=== PATIENT | male | born 1940 | race Caucasian/White ===

== ENCOUNTER 2017-02-03 16:39 | Inpatient (IN) | payer MEDICARE, BC ==
[2017-02-03] MEDS ORDERED: SODIUM CHLORIDE 0.9% 1,000 ML IV ONE (17:52)
--- NOTE | 2017-02-03 18:04 | ED ---
General Adult HPI - General Chief complaint: Altered Mental Status Stated complaint: Altered Mental Status Time Seen by Provider: 02/03/17 17:00 Source: EMS, RN notes reviewed Mode of arrival: EMS - History of Present Illness Initial comments: This is a 76-year-old male presents to the emergency department with the . Patient is brought in because he fell today and the was concerned that he might have hurt something. Patient himself denies any pain or any problems at this time. is noted over the last 5 days that the patient is having trouble finding words to express himself which is very unusual. states she was very concerned because he had a skin tear on his left forearm and she decided that needed to be evaluated in the emergency department. Patient denies any headache patient denies numbness weakness. Patient denies any neck pain. Patient denies chest pain. Patient denies back pain. Patient denies any abdominal pain patient denies nausea vomiting diarrhea. - Related Data Home Medications Medication Instructions Recorded Confirmed Carvedilol [Coreg] 6.25 mg PO BID 02/03/17 02/03/17 PARoxetine [Paxil] 20 mg PO DAILY 02/03/17 02/03/17 glipiZIDE XL [Glucotrol Xl] 5 mg PO DAILY 02/03/17 02/03/17 Previous Rx's Medication Instructions Recorded hydrALAZINE HCL [Apresoline] 25 mg PO BID #60 tab 06/10/16 Allergies Allergy/AdvReac Type Severity Reaction Status Date / Time donepezil HCl [From Aricept] Allergy Unknown Verified 02/03/17 17:17 sertraline HCl [From Zoloft] Allergy Unknown Verified 02/03/17 17:17 simvastatin [From Zocor] Allergy Unknown Verified 02/03/17 17:17 Review of Systems ROS Statement: Those systems with pertinent positive or pertinent negative responses have been documented in the HPI. ROS Other: All systems not noted in ROS Statement are negative. Past Medical History Past Medical History: Coronary Artery Disease (CAD), Heart Failure, CVA/TIA, Diabetes Mellitus, GI Bleed, Hypertension, Liver Disease, Myocardial Infarction ([place]), Renal Disease Additional Past Medical History / Comment(s): HX OF CARDIAC ARREST WITH CENTRAL LOBE BRAIN DAMAGE. , HX OF CIRRHOSIS, HX OF ESOPHAGEAL VARICIES, HX OF TORN LEFT CALF MUSCLE 2 YEARS AGO WITH WOUND (2012), USES WALKER ., INPATIENT AUG 2015 FOR LOW HGB AND RECEIVED BLOOD TRANSFUSIONS. Last Myocardial Infarction Date:: 10/1994 History of Any Multi-Drug Resistant Organisms: MRSA Date of last positivie culture/infection: 2012 MDRO Source:: leg, foot, lungs Past Surgical History: Coronary Bypass/CABG, Heart Catheterization With Stent, Hernia Repair, Orthopedic Surgery Additional Past Surgical History / Comment(s): quad bypass, bilateral carotids, SURG LEFT LEG WOUND., EGD AUG 2015 Past Anesthesia/Blood Transfusion Reactions: No Reported Reaction Additional Past Anesthesia/Blood Transfusion Reaction / Comment(s): HX OF BLOOD TRANSFUSIONS-NO PROBLEMS. Date of Last Stent Placement:: unk Past Psychological History: Anxiety, Depression Smoking Status: Former smoker Past Alcohol Use History: Rare Additional Past Alcohol Use History / Comment(s): HX OF HEAVY ALCOHOL USE. QUIT AUG 2013. SMOKED A PIPE. QUIT SMOKING 1989. Past Drug Use History: None Reported - Past Family History Mother Family Medical History: Myocardial Infarction ([place]) Additional Family Medical History / Comment(s): x7 mi's Father Family Medical History: Diabetes Mellitus Additional Family Medical History / Comment(s): amp lower extremity General Exam - General Exam Comments Initial Comments: GENERAL: Patient is well-developed and well-nourished. Patient is nontoxic and well- hydrated and is in no acute distress. ENT: Neck is soft and supple. No significant lymphadenopathy is noted. Oropharynx is clear. Dry mucous membranes. Neck has full range of motion without eliciting any pain. EYES: The sclera were anicteric and conjunctiva were pink and moist. Extraocular movements were intact and pupils were equal round and reactive to light. Eyelids were unremarkable. PULMONARY: Unlabored respirations. Good breath sounds bilaterally. No audible rales rhonchi or wheezing was noted. CARDIOVASCULAR: There is a regular rate and rhythm without any murmurs gallops or rubs. ABDOMEN: Soft and nontender with normal bowel sounds. No palpable organomegaly was noted. There is no palpable pulsatile mass. SKIN: Skin is clear with no lesions or rashes and otherwise unremarkable. NEUROLOGIC: Patient is alert and oriented 2. Cranial nerves II through XII are grossly intact. Motor and sensory are also intact. Patient does have some difficulty finding words to express himself. states this is new. MUSCULOSKELETAL: Normal extremities with adequate strength and full range of motion. No lower extremity swelling or edema. No calf tenderness. LYMPHATICS: No significant lymphadenopathy is noted PSYCHIATRIC: Normal psychiatric evaluation. Course Vital Signs 02/03/17 02/03/17 16:51 18:08 Temperature 98.1 F Pulse Rate 96 87 Respiratory 18 18 Rate Blood Pressure 217/115 196/94 O2 Sat by Pulse 92 L 94 L Oximetry Medical Decision Making - Medical Decision Making Patient's EKG shows a sinus rhythm at 91 bpm ID interval 222 QRS is under QT interval 394 QTC is 484. Patient's EKG shows no ST segment elevation or depression or T-wave abdomen is noted. I compared this EKG to an old EKG I see no acute changes. CT of the brain shows no acute abnormality. Patient was still having slurred speech on the time of admission. Patient's sugar was elevated significant patient Humalog. Patient's troponin was mildly elevated as was the creatinine which is his baseline. I spoke with Dr. Mcguire he agreed to admit the patient admitted the patient I consult the neuro I repeated the troponins I put the patient on an insulin sliding scale and I hydrated the patient. - Lab Data Result diagrams: 02/03/17 16:53 02/03/17 16:53 Lab Results 02/03/17 02/03/17 02/03/17 Range/Units 16:53 16:53 16:53 WBC 12.9 H (3.8-10.6) k/uL RBC 4.66 (4.30-5.90) m/uL Hgb 14.1 (13.0-17.5) gm/dL Hct 42.4 (39.0-53.0) % MCV 91.0 (80.0-100.0) fL MCH 30.2 (25.0-35.0) pg MCHC 33.2 (31.0-37.0) g/dL RDW 14.1 (11.5-15.5) % Plt Count 146 L (150-450) k/uL Neutrophils % 85 % Lymphocytes % 5 % Monocytes % 8 % Eosinophils % 0 % Basophils % 1 % Neutrophils # 10.9 H (1.3-7.7) k/uL Lymphocytes # 0.7 L (1.0-4.8) k/uL Monocytes # 1.1 H (0-1.0) k/uL Eosinophils # 0.0 (0-0.7) k/uL Basophils # 0.1 (0-0.2) k/uL PT (9.0-12.0) sec INR (<1.1) APTT (22.0-30.0) sec Sodium 140 (137-145) mmol/L Potassium 4.2 (3.5-5.1) mmol/L Chloride 105 (98-107) mmol/L Carbon Dioxide 18 L (22-30) mmol/L Anion Gap 17 mmol/L BUN 51 H (9-20) mg/dL Creatinine 2.30 H (0.66-1.25) mg/dL Est GFR (MDRD) Af Amer 34 (>60 ml/min/1.73 sqM) Est GFR (MDRD) Non-Af 28 (>60 ml/min/1.73 sqM) Glucose 437 H (74-99) mg/dL POC Glucose (mg/dL) (75-99) mg/dL POC Glu [address] Reporter ID Calcium 9.8 (8.4-10.2) mg/dL Total Bilirubin 2.1 H (0.2-1.3) mg/dL AST 56 (17-59) U/L ALT 30 (21-72) U/L Alkaline Phosphatase 145 H (38-126) U/L Total Creatine Kinase 1525 H (55-170) U/L CK-MB (CK-2) 6.0 H* (0.0-2.4) ng/mL CK-MB (CK-2) Rel Index 0.4 Troponin I 0.312 H* (0.000-0.034) ng/mL Total Protein 7.6 (6.3-8.2) g/dL Albumin 4.2 (3.5-5.0) g/dL Urine Color Urine Appearance (Clear) Urine pH (5.0-8.0) Ur Specific [place] (1.001-1.035) Urine Protein (Negative) Urine Glucose (UA) (Negative) Urine Ketones (Negative) Urine Blood (Negative) Urine Nitrite (Negative) Urine Bilirubin (Negative) Urine Urobilinogen (<2.0) mg/dL Ur Leukocyte Esterase (Negative) Urine RBC (0-5) /hpf Urine WBC (0-5) /hpf Urine Opiates Screen (NotDetected) Ur Oxycodone Screen (NotDetected) Urine Methadone Screen (NotDetected) Ur Propoxyphene Screen (NotDetected) Ur Barbiturates Screen (NotDetected) U Tricyclic Antidepress (NotDetected) Ur Phencyclidine Scrn (NotDetected) Ur Amphetamines Screen (NotDetected) U Methamphetamines Scrn (NotDetected) U Benzodiazepines Scrn (NotDetected) Urine Cocaine Screen (NotDetected) U Marijuana (THC) Screen (NotDetected) Acetone, Qual (Negative) 02/03/17 02/03/17 02/03/17 Range/Units 16:53 16:53 18:30 WBC (3.8-10.6) k/uL RBC (4.30-5.90) m/uL Hgb (13.0-17.5) gm/dL Hct (39.0-53.0) % MCV (80.0-100.0) fL MCH (25.0-35.0) pg MCHC (31.0-37.0) g/dL RDW (11.5-15.5) % Plt Count (150-450) k/uL Neutrophils % % Lymphocytes % % Monocytes % % Eosinophils % % Basophils % % Neutrophils # (1.3-7.7) k/uL Lymphocytes # (1.0-4.8) k/uL Monocytes # (0-1.0) k/uL Eosinophils # (0-0.7) k/uL Basophils # (0-0.2) k/uL PT 11.7 (9.0-12.0) sec INR 1.2 (<1.1) APTT 26.4 (22.0-30.0) sec Sodium (137-145) mmol/L Potassium (3.5-5.1) mmol/L Chloride (98-107) mmol/L Carbon Dioxide (22-30) mmol/L Anion Gap mmol/L BUN (9-20) mg/dL Creatinine (0.66-1.25) mg/dL Est GFR (MDRD) Af Amer (>60 ml/min/1.73 sqM) Est GFR (MDRD) Non-Af (>60 ml/min/1.73 sqM) Glucose (74-99) mg/dL POC Glucose (mg/dL) (75-99) mg/dL POC Glu [address] Reporter ID Calcium (8.4-10.2) mg/dL Total Bilirubin (0.2-1.3) mg/dL AST (17-59) U/L ALT (21-72) U/L Alkaline Phosphatase (38-126) U/L Total Creatine Kinase (55-170) U/L CK-MB (CK-2) (0.0-2.4) ng/mL CK-MB (CK-2) Rel Index Troponin I (0.000-0.034) ng/mL Total Protein (6.3-8.2) g/dL Albumin (3.5-5.0) g/dL Urine Color Yellow Urine Appearance Clear (Clear) Urine pH 5.5 (5.0-8.0) Ur Specific [place] 1.018 (1.001-1.035) Urine Protein 1+ H (Negative) Urine Glucose (UA) 4+ H (Negative) Urine Ketones 1+ H (Negative) Urine Blood Large H (Negative) Urine Nitrite Negative (Negative) Urine Bilirubin Negative (Negative) Urine Urobilinogen <2.0 (<2.0) mg/dL Ur Leukocyte Esterase Negative (Negative) Urine RBC 1 (0-5) /hpf Urine WBC <1 (0-5) /hpf Urine Opiates Screen Not Detected (NotDetected) Ur Oxycodone Screen Not Detected (NotDetected) Urine Methadone Screen Not Detected (NotDetected) Ur Propoxyphene Screen Not Detected (NotDetected) Ur Barbiturates Screen Not Detected (NotDetected) U Tricyclic Antidepress Not Detected (NotDetected) Ur Phencyclidine Scrn Not Detected (NotDetected) Ur Amphetamines Screen Not Detected (NotDetected) U Methamphetamines Scrn Not Detected (NotDetected) U Benzodiazepines Scrn Not Detected (NotDetected) Urine Cocaine Screen Not Detected (NotDetected) U Marijuana (THC) Screen Not Detected (NotDetected) Acetone, Qual Negative (Negative) 02/03/17 02/03/17 Range/Units 18:54 20:47 WBC (3.8-10.6) k/uL RBC (4.30-5.90) m/uL Hgb (13.0-17.5) gm/dL Hct (39.0-53.0) % MCV (80.0-100.0) fL MCH (25.0-35.0) pg MCHC (31.0-37.0) g/dL RDW (11.5-15.5) % Plt Count (150-450) k/uL Neutrophils % % Lymphocytes % % Monocytes % % Eosinophils % % Basophils % % Neutrophils # (1.3-7.7) k/uL Lymphocytes # (1.0-4.8) k/uL Monocytes # (0-1.0) k/uL Eosinophils # (0-0.7) k/uL Basophils # (0-0.2) k/uL PT (9.0-12.0) sec INR (<1.1) APTT (22.0-30.0) sec Sodium (137-145) mmol/L Potassium (3.5-5.1) mmol/L Chloride (98-107) mmol/L Carbon Dioxide (22-30) mmol/L Anion Gap mmol/L BUN (9-20) mg/dL Creatinine (0.66-1.25) mg/dL Est GFR (MDRD) Af Amer (>60 ml/min/1.73 sqM) Est GFR (MDRD) Non-Af (>60 ml/min/1.73 sqM) Glucose (74-99) mg/dL POC Glucose (mg/dL) 409 H 353 H (75-99) mg/dL POC Glu [address] Court Reporter ID Scooby Lidia Quin Lawson Calcium (8.4-10.2) mg/dL Total Bilirubin (0.2-1.3) mg/dL AST (17-59) U/L ALT (21-72) U/L Alkaline Phosphatase (38-126) U/L Total Creatine Kinase (55-170) U/L CK-MB (CK-2) (0.0-2.4) ng/mL CK-MB (CK-2) Rel Index Troponin I (0.000-0.034) ng/mL Total Protein (6.3-8.2) g/dL Albumin (3.5-5.0) g/dL Urine Color Urine Appearance (Clear) Urine pH (5.0-8.0) Ur Specific [place] (1.001-1.035) Urine Protein (Negative) Urine Glucose (UA) (Negative) Urine Ketones (Negative) Urine Blood (Negative) Urine Nitrite (Negative) Urine Bilirubin (Negative) Urine Urobilinogen (<2.0) mg/dL Ur Leukocyte Esterase (Negative) Urine RBC (0-5) /hpf Urine WBC (0-5) /hpf Urine Opiates Screen (NotDetected) Ur Oxycodone Screen (NotDetected) Urine Methadone Screen (NotDetected) Ur Propoxyphene Screen (NotDetected) Ur Barbiturates Screen (NotDetected) U Tricyclic Antidepress (NotDetected) Ur Phencyclidine Scrn (NotDetected) Ur Amphetamines Screen (NotDetected) U Methamphetamines Scrn (NotDetected) U Benzodiazepines Scrn (NotDetected) Urine Cocaine Screen (NotDetected) U Marijuana (THC) Screen (NotDetected) Acetone, Qual (Negative) Disposition Clinical Impression: CVA (cerebral vascular accident), Hyperglycemia, Dehydration, Elevated troponin , Rhabdomyolysis, Chronic renal failure Disposition: ADMITTED IP TO THIS HOSP Referrals: Rosalva Mcguire MD [Primary Care Provider] - 1-2 days Time of Disposition: 21:18
[2017-02-03 18:10] LABS: Basophils # (A) 0.1 k/uL (0-0.2); Basophils % (A) 1 %; CH 29.8; CHCM 32.9; Eosinophils % (A) 0 %; HCT 42.4 % (39.0-53.0); HDW 2.74; HGB 14.1 gm/dL (13.0-17.5); Luc # (Auto) 0.18; Luc % (Auto) 1; Lymphocytes # (A) 0.7 k/uL (1.0-4.8); Lymphocytes % (A) 5 %; MCH 30.2 pg (25.0-35.0); MCHC 33.2 g/dL (31.0-37.0); Mean Platelet Volume 7.8; Monocytes # (A) 1.1 k/uL (0-1.0); Monocytes % (A) 8 %; Neutrophils # (A) 10.9 k/uL (1.3-7.7); Neutrophils % (A) 85 %; RBC 4.66 m/uL (4.30-5.90); RDW 14.1 % (11.5-15.5); WBC 12.9 k/uL (3.8-10.6); WBC (Perox) 12.49
[2017-02-03 18:20] LABS: Partial Thromboplastin Time 26.4 sec (22.0-30.0)
[2017-02-03 18:22] LABS: INR 1.2 (<1.1); Prothrombin Time 11.7 sec (9.0-12.0)
[2017-02-03 18:23] LABS: Calcium 9.8 mg/dL (8.4-10.2); Potassium 4.2 mmol/L (3.5-5.1); Total Bilirubin 2.1 mg/dL (0.2-1.3); Total Protein 7.6 g/dL (6.3-8.2)
--- NOTE | 2017-02-03 18:33 | CT ---
EXAMINATION TYPE: CT brain wo con DATE OF EXAM: 02/03/2017 6:25 PM HISTORY: multiple falls per patient family with headache. CT DLP: 1213 mGycm. Automated Exposure Control for Dose Reduction was Utilized. TECHNIQUE: CT scan of the head is performed without contrast. COMPARISON: None. FINDINGS: There is no acute intracranial hemorrhage or midline shift identified. There is diffuse v entricular and sulcal prominence consistent with diffuse age-related cerebral atrophy. There is low- attenuation in the periventricular white matter consistent with chronic small vessel ischemic change. Old lacunar infarct left head of caudate nucleus level near axial image 20 and 21 is noted. There is near complete opacification visualized portion of left maxillary sinus otherwise paranasal sinuses a re clear. Both lenses are thinned. The calvarium is intact. IMPRESSION: No acute intracranial hemorrhage or midline shift. There is moderate to severe diffuse age-related cerebral atrophy and moderate chronic small vessel ischemic change noted. Left maxillary sinus disease is noted.
--- NOTE | 2017-02-03 18:39 | XR ---
EXAMINATION TYPE: XR chest 2V DATE OF EXAM: 02/03/2017 6:28 PM COMPARISON: Chest x-ray September 19, 2015. HISTORY: History of COPD presents with weakness and multiple falls. TECHNIQUE: Frontal and lateral views of the chest are obtained. FINDINGS: Post-CABG changes with mediastinal clips and sternal wires is present. There is chronic lef t basilar scarring. There is no new suspicious focal air space opacity, pleural effusion, or pneumoth orax seen. The cardiac silhouette size is within normal limits. There is mild height loss or baltazar taco type fracture deformity at roughly T11 level. IMPRESSION: Post CABG changes with left basilar scarring, no acute pulmonary process is evident.
[2017-02-03 18:47] LABS: Appearance,Urine Clear (Clear); Bilirubin,Urine Negative (Negative); Glucose,Urine (UA) 4+ (Negative); Ketones,Urine 1+ (Negative); Leukocyte Esterase,Urine Negative (Negative); Nitrite,Urine Negative (Negative); PH, Urine 5.5 (5.0-8.0); Particle Count 3413; Protein,Urine 1+ (Negative); RBC,Urine 1 /hpf (0-5); Specific Gravity,Urine 1.018 (1.001-1.035); UA Billing (MACRO vs. MICRO) MICRO; Urobilinogen,Urine <2.0 mg/dL (<2.0); WBC,Urine <1 /hpf (0-5)
[2017-02-03 18:51] LABS: Troponin I 0.312 ng/mL (0.000-0.034)
[2017-02-03 18:57] LABS: Glucose,Whole Blood 409 mg/dL (75-99)
[2017-02-03] MEDS ORDERED: INSULIN REGULAR 100 UNIT/ML VIAL IV ONE (19:34)
[2017-02-03] MEDS: INSULIN REGULAR 100 UNIT in SODIUM CHLORIDE 0.9% 100 ML IV ONE ×2 (20:46→21:24)
[2017-02-03 20:49] LABS: Glucose,Whole Blood 353 mg/dL (75-99)
[2017-02-03] MEDS ORDERED: INSULIN LISPRO (humaLOG) 300 UNIT/3 ML VIAL SQ ONE (20:57)
[2017-02-03] MEDS: SODIUM CHLORIDE 0.9% 1,000 ML IV SCH (21:46)
[2017-02-03 22:23] LABS: Glucose,Whole Blood 341 mg/dL (75-99)
[2017-02-03] MEDS: INSULIN GLARGINE 100 UNIT/ML 10 ML VIAL SQ SCH (23:34)
[2017-02-03] MEDS: hydrALAZINE HCL 25 MG TAB PO SCH (23:59)
[2017-02-03] MEDS: CARVEDILOL 6.25 MG TAB PO SCH (23:59)
[2017-02-04 00:47] LABS: Hemoglobin A1C 8.7 % (4.2-6.1)
[2017-02-04 01:20] LABS: Glucose,Whole Blood 209 mg/dL (75-99)
[2017-02-04 02:05] LABS: Calcium 9.3 mg/dL (8.4-10.2); Phosphorous 2.6 mg/dL (2.5-4.5); Potassium 3.9 mmol/L (3.5-5.1); Total Bilirubin 1.9 mg/dL (0.2-1.3); Total Protein 6.5 g/dL (6.3-8.2)
[2017-02-04 02:06] LABS: INR 1.2 (<1.1); Partial Thromboplastin Time 28.2 sec (22.0-30.0); Prothrombin Time 11.6 sec (9.0-12.0)
[2017-02-04 02:12] LABS: Basophils # (A) 0.1 k/uL (0-0.2); Basophils % (A) 1 %; CH 30.2; CHCM 33.2; Eosinophils % (A) 0 %; HCT 39.8 % (39.0-53.0); HDW 2.71; HGB 12.7 gm/dL (13.0-17.5); Luc # (Auto) 0.21; Luc % (Auto) 2; Lymphocytes # (A) 0.9 k/uL (1.0-4.8); Lymphocytes % (A) 10 %; MCH 29.1 pg (25.0-35.0); MCHC 31.8 g/dL (31.0-37.0); MCV 91.4 fL (80.0-100.0); Monocytes # (A) 0.8 k/uL (0-1.0); Monocytes % (A) 9 %; Neutrophils # (A) 7.1 k/uL (1.3-7.7); Neutrophils % (A) 77 %; RBC 4.36 m/uL (4.30-5.90); RDW 14.4 % (11.5-15.5); WBC 9.1 k/uL (3.8-10.6); WBC (Perox) 9.09
[2017-02-04 02:20] LABS: Magnesium 1.9 mg/dL (1.6-2.3)
--- NOTE | 2017-02-04 02:27 | CT ---
EXAM: CT Head Without Intravenous Contrast. CLINICAL HISTORY: Reason: right sided weakness, code stroke TECHNIQUE: Axial computed tomography images of the head/brain without intravenous contrast. CTDI is 57.4 mGy and DLP is 1116 mGy-cm This CT exam was performed using one or more of the following dose reduction techniques: automated exposure control, adjustment of the mA and/or kV according to patient size, and/or use of iterative reconstruction technique. COMPARISON: CT 02/03/17. FINDINGS: Brain: Involutional changes. Periventricular low attenuation and chronic ischemic changes similar to prior study. No hemorrhage. No acute cortical infarct. No mass effect or midline shift. Ventricles: Stable. Bones/joints: No acute fracture. Soft tissues: Unremarkable. Sinuses: Left maxillary sinus disease. Mastoid air cells: Unremarkable as visualized. IMPRESSION: No intracranial hemorrhage or acute cortical infarct. MRI is more sensitive for acute ischemia if indicated.
[2017-02-04 02:37] LABS: Creatine Kinase MB 7.2 ng/mL (0.0-2.4)
[2017-02-04 02:38] LABS: Troponin I 0.298 ng/mL (0.000-0.034)
[2017-02-04] MEDS ORDERED: ASPIRIN 300 MG SUPP RECTAL STA (02:48)
--- NOTE | 2017-02-04 03:12 | CT ---
EXAM: CT Angiography Head With Intravenous Contrast. CLINICAL HISTORY: Reason: right sided weakness, code stroke TECHNIQUE: Axial computed tomographic angiography images of the head with intravenous contrast using CT angiography protocol. CTDI is 32 mGy and DLP is 248 mGy-cm This CT exam was performed using one or more of the following dose reduction techniques: automated exposure control, adjustment of the mA and/or kV according to patient size, and/or use of iterative reconstruction technique. MIP reconstructed images were created and reviewed. COMPARISON: No relevant prior studies available. FINDINGS: Right internal carotid artery: Atherosclerotic disease. No significant stenosis. No dissection or occlusion. Right anterior cerebral artery: No occlusion. No aneurysm. Right middle cerebral artery: Overall diminished left hemispheric vascularity compared to the right. No aneurysm. Right posterior cerebral artery: No occlusion. No aneurysm. Right vertebral artery: No dissection or occlusion. Left internal carotid artery: Atherosclerotic disease. No significant stenosis. No dissection or occlusion. Left anterior cerebral artery: No occlusion. No aneurysm. Left middle cerebral artery: No occlusion. No aneurysm. Left posterior cerebral artery: No occlusion. No aneurysm. Left vertebral artery: No dissection or occlusion. Basilar artery: No occlusion. No aneurysm. IMPRESSION: 1. Overall diminished left MCA territory vascularity compared to the right. Consider MRI to evaluate for early ischemic changes. 2. No large vessel occlusion or aneurysm. EXAM: CT Angiography Neck With Intravenous Contrast. CLINICAL HISTORY: Reason: right sided weakness, code stroke TECHNIQUE: Axial computed tomographic angiography images of the neck with intravenous contrast using CT angiography protocol. CTDI is 114 mGy and DLP is 264 mGy-cm This CT exam was performed using one or more of the following dose reduction techniques: automated exposure control, adjustment of the mA and/or kV according to patient size, and/or use of iterative reconstruction technique. MIP reconstructed images were created and reviewed. COMPARISON: No relevant prior studies available. FINDINGS: VASCULATURE: Right common carotid artery: Atherosclerotic disease. No significant stenosis. No dissection or occlusion. Right internal carotid artery: Atherosclerotic disease. No significant stenosis. No dissection or occlusion. Right external carotid artery: Unremarkable. No occlusion. Right vertebral artery: Unremarkable. No dissection or occlusion. Left common carotid artery: Atherosclerotic disease. No significant stenosis. No dissection or occlusion. Left internal carotid artery: Atherosclerotic disease. No significant stenosis. No dissection or occlusion. Left external carotid artery: Unremarkable. No occlusion. Left vertebral artery: Unremarkable. No dissection or occlusion. NECK: Bones/joints: No acute fracture. Soft tissues: Unremarkable as visualized. CAROTID STENOSIS REFERENCE USING NASCET CRITERIA: % ICA stenosis = (1 - narrowest ICA diameter/diameter of distal cervical ICA) x 100. Mild - <50% stenosis. Moderate - 50-69% stenosis. Severe - 70-94% stenosis. Near occlusion - 95-99% stenosis. Occluded - 100% stenosis. IMPRESSION: No flow-limiting stenosis, occlusion, or dissection. [employer] 02/04/17 03:46 Call Doctor Regarding Above results, called Dr. Lynch on 02/04 03:46 (-04:00)
[2017-02-04 05:30] LABS: CHCM 33.1; HCT 36.3 % (39.0-53.0); HGB 11.9 gm/dL (13.0-17.5); MCH 29.8 pg (25.0-35.0); MCHC 32.8 g/dL (31.0-37.0); Mean Platelet Volume 8.5; RBC 3.99 m/uL (4.30-5.90); RDW 14.3 % (11.5-15.5); WBC 9.3 k/uL (3.8-10.6)
[2017-02-04 05:45] LABS: Magnesium 1.9 mg/dL (1.6-2.3); Phosphorous 2.6 mg/dL (2.5-4.5)
[2017-02-04 07:23] LABS: Glucose,Whole Blood 215 mg/dL (75-99)
[2017-02-04 09:24] LABS: Glucose,Whole Blood 214 mg/dL (75-99)
[2017-02-04] MEDS: INSULIN LISPRO (humaLOG) 300 UNIT/3 ML VIAL SQ SCH ×4 (09:37→20:45)
[2017-02-04] MEDS: HEPARIN SODIUM,PORCINE 5,000 UNIT/ML 1 ML VIAL SQ SCH ×2 (09:37→20:45)
[2017-02-04] MEDS: SODIUM CHLORIDE 0.9% 1,000 ML IV SCH ×2 (09:37→17:48)
--- NOTE | 2017-02-04 09:46 | US ---
EXAMINATION TYPE: US carotid duplex BILAT DATE OF EXAM: 02/04/2017 8:39 AM COMPARISON: NONE CLINICAL HISTORY: Stenosis. CVA EXAM MEASUREMENTS: RIGHT: Peak Systolic Velocity (PSV) cm/sec ----- Right CCA: 77.9 ----- Right ICA: 80.1 ----- Right ECA: 81.2 ICA/CCA ratio: 1.0 RIGHT: End Diastole cm/sec ----- Right CCA: 18.6 ----- Right ICA: 26.3 ----- Right ECA: 5.4 LEFT: Peak Systolic Velocity (PSV) cm/sec ----- Left CCA: 116.1 ----- Left ICA: 109.7 ----- Left ECA: 98.4 ICA/CCA ratio: 0.9 LEFT: End Diastole cm/sec ----- Left CCA: 17.6 ----- Left ICA: 22.5 ----- Left ECA: 11.1 VERTEBRALS (direction of flow): Right Vertebral: Antegrade Left Vertebral: Antegrade IMPRESSION: Moderate plaque noted bilaterally. No evidence of significant stenosis. Criteria for Assigning % of Stenosis / Diameter reduction (Estimation based on the indirect measurements of the internal carotid artery velocities (ICA PSV). 1. Normal (no stenosis)=ICA PSV < 125 cm/s: ratio < 2.0: ICA EDV<40 cm/s. 2. Less than 50% stenosis=ICA PSV < 125 cm/s: ratio < 2.0: ICA EDV<40 cm/s. 3. 50 to 69% stenosis=ICA PSV of 125 to 230 cm/s: ration 2.0 ? 4.0: ICA EDV 40-100 cm/s. 4. Greater than 70% stenosis to near occlusion= ICA PSV > 230 cm/s: ratio > 4.0: ICA EDV > 100 cm/s. 5. Near occlusion= ICA PSV velocities may be low or undetectable: variable ratio and ICA EDV. 6. Total occlusion=unable to detect flow.
[2017-02-04] MEDS ORDERED: Potassium Replacement Protocol 1 EACH MISC MISCELLANE PRN (09:47)
[2017-02-04] MEDS ORDERED: Magnesium Replacement Protocol 1 EACH MISC MISCELLANE PRN (09:47)
[2017-02-04] MEDS: PARoxetine 20 MG TAB PO SCH (09:51)
[2017-02-04] MEDS: CARVEDILOL 6.25 MG TAB PO SCH ×2 (09:51→17:47)
[2017-02-04] MEDS: hydrALAZINE HCL 25 MG TAB PO SCH ×3 (09:51→21:10)
[2017-02-04] MEDS ORDERED: LORazepam 2 MG/ML SYRINGE IV PRN (11:03)
[2017-02-04] MEDS: PANTOPRAZOLE 40 MG/10 ML VIAL IVP SCH (11:18)
[2017-02-04 12:08] LABS: Glucose,Whole Blood 162 mg/dL (75-99)
--- NOTE | 2017-02-04 12:52 | P.HPIM ---
History of Present Illness H&P Date: 02/04/17 Chief Complaint: After his mental status This is a 76-year-old gentleman with very complex past medical history noted below who presented to the emergency room with his with altered mental status and after she found him on the floor. For the past week or so, patient' s mentation is being getting progressively worse. He was noted to be less active and at times very sleepy. When his called my office 2 days ago I advised her to take him to the emergency room for further evaluation. Apparently patient stayed at the assisted living where he resides and yesterday she went to see him and found him on the ground. He was unclear for how long the patient was on the ground. He was awake and alert. He appeared very confused. He is awake today that was not oriented to the place or the to the date. He is known to have underlying cognitive impairment that usually is coherent. He was evaluated in the emergency room and computed tomography scan of the brain showed no acut intracranial findings. Lab work showed evidence of rhabdomyolysis patient was started on IV fluid and was admitted to the hospital for further evaluation. Troponin were noted to be slightly elevated but patient himself denies any chest pain. 12-lead EKG showed no acute ischemic changes. Patient is known to have chronic kidney disease with baseline creatinine around 2. Review of Systems Review of system: 14 points review of systems were obtained and were negative except to what were mentioned in the HPI. Past Medical History Past Medical History: Coronary Artery Disease (CAD), Heart Failure, CVA/TIA, Diabetes Mellitus, GI Bleed, Hypertension, Liver Disease, Myocardial Infarction ([place]), Renal Disease Additional Past Medical History / Comment(s): HX OF CARDIAC ARREST WITH CENTRAL LOBE BRAIN DAMAGE. , HX OF CIRRHOSIS, HX OF ESOPHAGEAL VARICIES, HX OF TORN LEFT CALF MUSCLE 2 YEARS AGO WITH WOUND (2012), USES WALKER ., INPATIENT AUG 2015 FOR LOW HGB AND RECEIVED BLOOD TRANSFUSIONS. Last Myocardial Infarction Date:: 10/1994 History of Any Multi-Drug Resistant Organisms: MRSA Date of last positivie culture/infection: 2012 MDRO Source:: leg, foot, lungs Past Surgical History: Coronary Bypass/CABG, Heart Catheterization With Stent, Hernia Repair, Orthopedic Surgery Additional Past Surgical History / Comment(s): quad bypass, bilateral carotids, SURG LEFT LEG WOUND., EGD AUG 2015 Past Anesthesia/Blood Transfusion Reactions: No Reported Reaction Additional Past Anesthesia/Blood Transfusion Reaction / Comment(s): HX OF BLOOD TRANSFUSIONS-NO PROBLEMS. Date of Last Stent Placement:: unk Past Psychological History: Anxiety, Depression Smoking Status: Former smoker Past Alcohol Use History: Rare Additional Past Alcohol Use History / Comment(s): HX OF HEAVY ALCOHOL USE. QUIT AUG 2013. SMOKED A PIPE. QUIT SMOKING 1989. Past Drug Use History: None Reported - Past Family History Mother Family Medical History: Myocardial Infarction ([place]) Additional Family Medical History / Comment(s): x7 mi's Father Family Medical History: Diabetes Mellitus Additional Family Medical History / Comment(s): amp lower extremity Medications and Allergies Home Medications Medication Instructions Recorded Confirmed Type Carvedilol [Coreg] 6.25 mg PO BID 02/03/17 02/03/17 History PARoxetine [Paxil] 20 mg PO DAILY 02/03/17 02/03/17 History glipiZIDE XL [Glucotrol Xl] 5 mg PO DAILY 02/03/17 02/03/17 History Allergies Allergy/AdvReac Type Severity Reaction Status Date / Time donepezil HCl [From Aricept] Allergy Unknown Verified 02/03/17 17:17 sertraline HCl [From Zoloft] Allergy Unknown Verified 02/03/17 17:17 simvastatin [From Zocor] Allergy Unknown Verified 02/03/17 17:17 Physical Exam Vitals: Vital Signs Temp Pulse Pulse Resp BP Pulse Ox 02/04/17 12:00 98.3 F 58 L 15 173/60 99 02/04/17 11:30 59 L 14 154/81 98 02/04/17 11:00 61 14 173/86 95 02/04/17 10:30 58 L 14 182/92 78 L 02/04/17 10:00 73 24 161/78 96 02/04/17 09:30 59 L 12 158/79 97 02/04/17 09:00 98.2 F 58 L 15 141/73 98 02/04/17 08:30 59 L 9 L 177/85 96 02/04/17 08:00 58 L 13 166/81 92 L 02/04/17 07:45 63 17 166/81 97 02/04/17 07:30 61 14 105/60 98 02/04/17 07:15 61 13 105/60 96 02/04/17 07:00 63 23 148/76 97 02/04/17 06:45 59 L 16 148/76 97 02/04/17 06:30 70 26 H 151/76 89 L 02/04/17 06:15 57 L 15 151/76 95 02/04/17 06:00 60 15 147/71 95 02/04/17 05:45 60 14 147/71 94 L 02/04/17 05:30 60 21 146/73 94 L 02/04/17 05:15 62 14 146/73 94 L 02/04/17 05:00 97.2 F L 65 15 141/72 93 L 02/04/17 04:45 63 25 H 141/72 85 L 02/04/17 04:30 66 15 141/72 94 L 02/04/17 04:15 67 15 141/72 94 L 02/04/17 04:00 66 15 141/72 95 02/04/17 03:45 64 15 141/72 96 02/04/17 03:30 64 25 H 141/72 97 02/04/17 03:15 67 19 168/89 02/04/17 03:00 71 20 168/89 02/04/17 02:45 68 18 140/75 83 L 02/04/17 02:30 70 11 L 163/81 83 L 02/04/17 02:00 153/95 02/04/17 01:39 97.1 F L 02/04/17 01:30 70 153/95 92 L 02/04/17 01:00 66 137/73 90 L 02/04/17 00:30 69 140/73 97 02/04/17 00:00 70 67 22 149/93 80 L 02/03/17 23:30 69 136/71 82 L 02/03/17 23:00 74 163/98 97 02/03/17 22:30 75 198/94 96 02/03/17 22:18 203/107 Intake and Output 02/03/17 02/04/17 02/04/17 22:59 06:59 14:59 Intake Total 100 Output Total 200 300 Balance -200 -200 Intake: Intake, IV Titration 100 Amount Sodium Chloride 0.9% 1, 100 000 ml @ 100 mls/hr IV . Q10H [facility] Rx#:[id number] Output: Urine 200 300 Other: Voiding Method Bedpan Bedpan Urinal Urinal Weight 78.4 kg 79 kg 79 kg Patient Weight 02/05/17 06:59 Weight 79 kg General: The patient is awake and alert, in no distress, Eye: extra-ocular movements are intact; there is normal conjunctiva bilaterally. . Neck: The neck is supple, there is no tenderness or JVD. Cardiovascular: Normal S1-S2, no S3-S4, no murmurs. Respiratory: Lungs clear to auscultation bilaterally with no wheezes rhonchi or rales. Gastrointestinal: Abdomen is soft, nontender, nondistended, Musculoskeletal: Normal ROM, no tenderness, There is no pedal edema. Neurological: There are no obvious motor or sensory deficits. Skin: Skin is warm and dry Results CBC & Chem 7: 02/04/17 04:50 02/04/17 04:50 Labs: Abnormal Lab Results - Last 24 Hours (Table) 02/03/17 02/03/17 02/03/17 Range/Units 21:50 21:50 22:21 RBC (4.30-5.90) m/uL Hgb (13.0-17.5) gm/dL Hct (39.0-53.0) % Plt Count (150-450) k/uL Lymphocytes # (1.0-4.8) k/uL Chloride (98-107) mmol/L BUN (9-20) mg/dL Creatinine (0.66-1.25) mg/dL Glucose (74-99) mg/dL POC Glucose (mg/dL) 341 H (75-99) mg/dL Plasma Lactic Acid Rachid (0.7-2.0) mmol/L Total Bilirubin (0.2-1.3) mg/dL AST (17-59) U/L Creatine Kinase 1563 H (55-170) U/L CK-MB (CK-2) (0.0-2.4) ng/mL Troponin I 0.305 H* (0.000-0.034) ng/mL Albumin (3.5-5.0) g/dL HDL Cholesterol (40-60) mg/dL 02/04/17 02/04/17 02/04/17 Range/Units 01:18 01:40 01:40 RBC (4.30-5.90) m/uL Hgb 12.7 L (13.0-17.5) gm/dL Hct (39.0-53.0) % Plt Count 109 L (150-450) k/uL Lymphocytes # 0.9 L (1.0-4.8) k/uL Chloride 108 H (98-107) mmol/L BUN 46 H (9-20) mg/dL Creatinine 2.00 H (0.66-1.25) mg/dL Glucose 176 H (74-99) mg/dL POC Glucose (mg/dL) 209 H (75-99) mg/dL Plasma Lactic Acid Rachid (0.7-2.0) mmol/L Total Bilirubin 1.9 H (0.2-1.3) mg/dL AST 64 H (17-59) U/L Creatine Kinase (55-170) U/L CK-MB (CK-2) (0.0-2.4) ng/mL Troponin I (0.000-0.034) ng/mL Albumin 3.4 L (3.5-5.0) g/dL HDL Cholesterol (40-60) mg/dL 02/04/17 02/04/17 02/04/17 Range/Units 01:40 01:40 01:40 RBC (4.30-5.90) m/uL Hgb (13.0-17.5) gm/dL Hct (39.0-53.0) % Plt Count (150-450) k/uL Lymphocytes # (1.0-4.8) k/uL Chloride (98-107) mmol/L BUN (9-20) mg/dL Creatinine (0.66-1.25) mg/dL Glucose (74-99) mg/dL POC Glucose (mg/dL) (75-99) mg/dL Plasma Lactic Acid Rachid 2.2 H* (0.7-2.0) mmol/L Total Bilirubin (0.2-1.3) mg/dL AST (17-59) U/L Creatine Kinase (55-170) U/L CK-MB (CK-2) 7.2 H* (0.0-2.4) ng/mL Troponin I 0.298 H* (0.000-0.034) ng/mL Albumin (3.5-5.0) g/dL HDL Cholesterol 39 L (40-60) mg/dL 02/04/17 02/04/17 02/04/17 Range/Units 04:50 04:50 07:21 RBC 3.99 L (4.30-5.90) m/uL Hgb 11.9 L (13.0-17.5) gm/dL Hct 36.3 L (39.0-53.0) % Plt Count 114 L (150-450) k/uL Lymphocytes # (1.0-4.8) k/uL Chloride 108 H (98-107) mmol/L BUN 46 H (9-20) mg/dL Creatinine 2.00 H (0.66-1.25) mg/dL Glucose 153 H (74-99) mg/dL POC Glucose (mg/dL) 215 H (75-99) mg/dL Plasma Lactic Acid Rachid (0.7-2.0) mmol/L Total Bilirubin (0.2-1.3) mg/dL AST (17-59) U/L Creatine Kinase (55-170) U/L CK-MB (CK-2) (0.0-2.4) ng/mL Troponin I (0.000-0.034) ng/mL Albumin (3.5-5.0) g/dL HDL Cholesterol (40-60) mg/dL 02/04/17 02/04/17 Range/Units 09:23 12:07 RBC (4.30-5.90) m/uL Hgb (13.0-17.5) gm/dL Hct (39.0-53.0) % Plt Count (150-450) k/uL Lymphocytes # (1.0-4.8) k/uL Chloride (98-107) mmol/L BUN (9-20) mg/dL Creatinine (0.66-1.25) mg/dL Glucose (74-99) mg/dL POC Glucose (mg/dL) 214 H 162 H (75-99) mg/dL Plasma Lactic Acid Rachid (0.7-2.0) mmol/L Total Bilirubin (0.2-1.3) mg/dL AST (17-59) U/L Creatine Kinase (55-170) U/L CK-MB (CK-2) (0.0-2.4) ng/mL Troponin I (0.000-0.034) ng/mL Albumin (3.5-5.0) g/dL HDL Cholesterol (40-60) mg/dL Thrombosis Risk Factor Assmnt - Choose All That Apply Each Risk Factor Represents 2 Points: Age 61-74 years Thrombosis Risk Factor Assessment Total Risk Factor Score: 2 Thrombosis Risk Factor Assessment Level: Low Risk Assessment and Plan Plan: 1. Speech difficulty: With possible TIA versus ischemic events. Computed tomography scan of the brain showed no acute findings. CT angiogram showed evidence of diminished left MCA territory vascularity. Carotid artery bilaterally with no significant stenosis. Neurology consulted. MRI ordered by neurology. 2. Acute encephalopathy: Most likely toxo metabolic. I would order ammonia level for further evaluation. 3. Microscopic hematuria with possible underlying cystitis: I would start the patient on IV ceftriaxone and obtain urine culture. 4. Stage IV chronic kidney disease with baseline creatinine around 2-2.5 5. 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 Coronary artery disease: Managed medically 7. Anemia of chronic disease and iron deficiency anemia 8. Rhabdomyolysis currently on IV fluid hydration. We will continue to monitor closely 9. Troponin elevation: Most likely not thrombotic troponin leak. No acute ischemic changes on 12-lead EKG. No chest pain. Echocardiogram ordered. Cardiology consulted for further evaluation. 10. Type 2 diabetes mellitus: Hold oral agents for now. Started on Lantus 10 units at bedtime. 11. Goals of care: Discussed by me with the patient and his during last office visit. Patient wishes to be DO NOT RESUSCITATE/DO NOT INTUBATE. We will reconfirm with his . 12. GI and DVT prophylaxis Today, I reviewed his medication list and lab work results. We will continue current regimen. Appreciate government operations consultant's recommendations. Continue supportive care. Repeat lab work in the morning.
--- NOTE | 2017-02-04 13:14 | ECHOF ---
Referral Reason:TIA? High Trop MEASUREMENTS -------- HEIGHT: 180.3 cm WEIGHT: 78.9 kg BP: 182/92 RVIDd: 2.6 cm (< 3.3) IVSd: 1.4 cm (0.6 - 1.1) LVIDd: 3.6 cm (3.9 - 5.3) LVPWd: 1.3 cm (0.6 - 1.1) IVSs: 1.6 cm LVIDs: 2.8 cm LVPWs: 1.9 cm LA Diam: 3.6 cm (2.7 - 3.8) LAESV Index (A-L): 30.02 ml/m Ao Diam: 2.5 cm (2.0 - 3.7) AV Cusp: 1.3 cm (1.5 - 2.6) LA Diam: 3.0 cm (2.7 - 3.8) MV EXCURSION: 9.718 mm (> 18.000) MV EF SLOPE: 33 mm/s (70 - 150) EPSS: 1.7 cm MV E Dejon: 0.55 m/s MV DecT: 203 ms MV A Dejon: 1.13 m/s MV E/A Ratio: 0.49 RAP: 5.00 mmHg RVSP: 14.95 mmHg FINDINGS -------- Sinus rhythm. This was a technically adequate study. There is moderate concentric left ventricular hypertrophy. Overall left ventricular systolic function is mild-moderately impaired with, an EF between 40 - 45 %. Basal inferoseptal LV wall motion is hypokinetic. Mid inferoseptal LV wall motion is hypokinetic. The right ventricle is normal in size. LA is midly dilated 29-33ml/m2. The right atrium is normal in size. 1.5mg of Definity was utilized for enhancement of images Aortic valve is trileaflet and is mildly thickened. Trace amount of aortic regurgitation. The mitral valve leaflets are mildly thickened. Moderate mitral annular calcification present. Mild mitral regurgitation is present. The peak and mean MV gradients are 5.58mmHg 1.47mmHg as measured by doppler. Trace tricuspid regurgitation present. Pulmonic valve appears structurally normal. The aortic root size is normal. Normal inferior vena cava with normal inspiratory collapse consistent with estimated right atrial pressure of 5 mmHg. CONCLUSIONS -------- 1. Sinus rhythm. 2. 1.5mg of Definity was utilized for enhancement of images 3. Aortic valve is trileaflet and is mildly thickened. 4. Trace amount of aortic regurgitation. 5. The mitral valve leaflets are mildly thickened. 6. Moderate mitral annular calcification present. 7. Mild mitral regurgitation is present. 8. The peak and mean MV gradients are 5.58mmHg 1.47mmHg as measured by doppler. 9. Trace tricuspid regurgitation present. 10. Pulmonic valve appears structurally normal. 11. The aortic root size is normal. 12. This was a technically adequate study. 13. Normal inferior vena cava with normal inspiratory collapse consistent with estimated right atrial pressure of 5 mmHg. 14. There is moderate concentric left ventricular hypertrophy. 15. Overall left ventricular systolic function is mild-moderately impaired with, an EF between 40 - 45 %. 16. Basal inferoseptal LV wall motion is hypokinetic. 17. Mid inferoseptal LV wall motion is hypokinetic. 18. The right ventricle is normal in size. 19. LA is midly dilated 29-33ml/m2. 20. The right atrium is normal in size. COMPUTER SECURITY MANAGER: Orlando Escalante RDCS
[2017-02-04 15:01] LABS: Glucose,Whole Blood 174 mg/dL (75-99)
--- NOTE | 2017-02-04 15:05 | MR ---
EXAMINATION TYPE: MR brain wo con DATE OF EXAM: 02/04/2017 2:53 PM COMPARISON: NONE HISTORY: possible CVA, rt side weakness FINDINGS: The ventricles, basal cisterns and sulci overlying the cerebral convexities are at least moderately e nlarged. There is evidence of moderate confluent periventricular white matter ischemic demyelination. Remote deep white matter insults are also noted. Diffusion weighted imaging demonstrates acute edema involving the right caudate nucleus and right bas al ganglia. Additional tiny foci are noted to involve the right temporal lobe, the posterior right pa rietal lobe as well as the posterior left parietal lobe. No large cortical insult. Correlate for emb olic process. Vascular flow voids are well preserved. There is no evidence for midline shift or mass effect. Acute intracranial hemorrhage or extra-axial collection is not evident. Near complete opacification left maxillary sinus with mild mucosal thickening right maxillary sinus. Mastoid air cells are well-aerated. IMPRESSION: 1. Multiple small foci of increased signal on the diffusion weighted data set as discussed above felt to reflect embolic process until proven otherwise. No evidence for associated hemorrhage. 2. Age-related atrophic and chronic small vessel ischemic change.
[2017-02-04 15:08] LABS: Calcium 8.9 mg/dL (8.4-10.2); Potassium 3.8 mmol/L (3.5-5.1)
[2017-02-04 16:57] LABS: Glucose,Whole Blood 220 mg/dL (75-99)
[2017-02-04] MEDS ORDERED: CARVEDILOL 12.5 MG TAB PO SCH (17:30)
[2017-02-04] MEDS: amLODIPine 5 MG TAB PO SCH ×2 (17:47→20:44)
[2017-02-04 20:21] LABS: Glucose,Whole Blood 273 mg/dL (75-99)
[2017-02-04] MEDS: INSULIN GLARGINE 100 UNIT/ML 10 ML VIAL SQ SCH (20:45)
[2017-02-05] MEDS: CARVEDILOL 6.25 MG TAB PO SCH ×2 (04:27→17:25)
[2017-02-05 05:00] LABS: Basophils % (A) 0 %; CH 29.4; CHCM 33.1; Eosinophils # (A) 0.2 k/uL (0-0.7); Eosinophils % (A) 2 %; HDW 2.78; HGB 12.2 gm/dL (13.0-17.5); Luc # (Auto) 0.16; Luc % (Auto) 2; Lymphocytes # (A) 0.9 k/uL (1.0-4.8); Lymphocytes % (A) 11 %; MCH 30.2 pg (25.0-35.0); MCHC 33.9 g/dL (31.0-37.0); MCV 89.1 fL (80.0-100.0); Mean Platelet Volume 8.2; Monocytes # (A) 0.5 k/uL (0-1.0); Monocytes % (A) 7 %; Neutrophils # (A) 6.2 k/uL (1.3-7.7); Neutrophils % (A) 78 %; RBC 4.04 m/uL (4.30-5.90); RDW 13.9 % (11.5-15.5)
[2017-02-05 05:26] LABS: Calcium 8.6 mg/dL (8.4-10.2); Magnesium 1.8 mg/dL (1.6-2.3); Phosphorous 2.3 mg/dL (2.5-4.5); Potassium 3.6 mmol/L (3.5-5.1); Total Bilirubin 1.2 mg/dL (0.2-1.3); Total Protein 6.2 g/dL (6.3-8.2)
[2017-02-05] MEDS: ASPIRIN 325 MG TAB PO SCH (08:35)
[2017-02-05] MEDS: SODIUM CHLORIDE 0.9% 1,000 ML IV SCH ×2 (08:35→14:44)
[2017-02-05] MEDS: hydrALAZINE HCL 25 MG TAB PO SCH ×3 (08:36→21:12)
[2017-02-05] MEDS: PARoxetine 20 MG TAB PO SCH (08:46)
[2017-02-05] MEDS: amLODIPine 5 MG TAB PO SCH ×2 (08:46→21:12)
[2017-02-05] MEDS: PANTOPRAZOLE 40 MG/10 ML VIAL IVP SCH (08:46)
[2017-02-05] MEDS: HEPARIN SODIUM,PORCINE 5,000 UNIT/ML 1 ML VIAL SQ SCH ×2 (08:46→21:12)
[2017-02-05] MEDS: INSULIN LISPRO (humaLOG) 300 UNIT/3 ML VIAL SQ SCH ×4 (08:52→21:12)
[2017-02-05 08:53] LABS: Glucose,Whole Blood 109 mg/dL (75-99)
--- NOTE | 2017-02-05 08:55 | CONS ---
DATE OF CONSULTATION: This is a 76-year-old gentleman, a patient of Dr. Rosalva Mcguire. This gentleman apparently saw Dr. Mcguire for the first time recently. He has not been seeing any physicians for a while, stopped all his medications in the past. However, he started taking medications after seeing Dr. Mcguire. He came into the hospital, brought in by EMS. Apparently he fell and his was concerned that he may have hurt himself. The patient is not a good historian. Does not give me any meaningful history. Fr the last 5 to 6 days he has been having difficulty expressing himself with some speech issues more or less looks like an aphasia type picture or a dysphasia type picture. He also has been very unstable when he walks and had an episode of fall. He denied any chest pain or shortness of breath. He does not seem to be in any major distress. Altered mentation with episodes of falling seems to be his major issue, He had some aphasia and also dysarthria as well. He has been in sinus rhythm. Does not have any arrhythmia. He does have a history of coronary artery disease with the previous aortocoronary bypass surgery, the details of which are not available. At that time of my evaluation, he appears to be relatively comfortable. PAST MEDICAL HISTORY: 1. CAD with previous bypass surgery, possibly PCI, details unclear. 2. History of previous cerebrovascular accident, details unclear. 3. History of cirrhosis. 4. Esophageal varices. 5. Previous blood transfusions. 6. He has had previous CVA as well. 7. He used to smoke heavily, but he quit several years ago. 8. He has heavy alcohol use, but he has quit 3 years ago. Apparently after arrival work-up revealed so far that he may have had multiple embolic strokes which was documented on MRI. His echo revealed an ejection fraction of 40 to 45% with inferoseptal basal hypokinesia and aortic valve sclerosis without significant pulmonary hypertension. Patient also has type 2 diabetes mellitus. Medications at home include: 1. Hydralazine 25 mg b.i.d. 2. Glipizide 5 mg daily. 3. Paxil 20 mg daily. 4. Carvedilol 6.25 mg b.i.d. ALLERGIES: ZOCOR, ARICEPT AND ZOLOFT. On examination, blood pressure is 140/70, pulse rate is 68 per minute, regular. HEENT: Unremarkable. Fundus was not examined by me. Neck is supple. I do not hear a carotid bruit. There is no thyromegaly. Heart exam reveals S1, S2 with a short systolic murmur at the base. Lungs reveal diminished air entry. ABDOMEN: Soft, nontender. Lower extremities reveal diminished pulses. Central nervous system I did not do a detailed examination, please refer to Dr. Marcos's notes. CENTRAL NERVOUS SYSTEM: Grossly no focal deficits. EKG revealed sinus mechanism. No acute changes. LABORATORY DATA: Suggests that the troponin is pretty much flat at 0.3 and 0.3 and 0.29. The patient's creatinine is also elevated and BUN is elevated suggestive of chronic kidney disease. IMPRESSION: 1. Altered mentation possibly multiple strokes documented on MRI. 2. Coronary artery disease with previous bypass surgery, myocardial infarction, stable. No overt heart failure. 3. Chronic kidney disease. 4. History of alcoholism in the past. 5. History of type 2 diabetes mellitus. RECOMMENDATIONS: From a cardiac standpoint, I would recommend that we obtain additional troponin. For his blood pressure, I am recommending amlodipine 5 mg b.i.d. since pressure is somewhat elevated earlier on. I will keep him n.p.o. after midnight and consider a transesophageal echo tomorrow morning. I discussed my thoughts in detail with the patient but I am not sure how much he comprehends Thank you very much for the consultation.
[2017-02-05] MEDS ORDERED: ASPIRIN 300 MG SUPP RECTAL SCH (09:00)
--- NOTE | 2017-02-05 09:45 | CONS ---
DATE OF CONSULTATION: 02/04/2017 CHIEF COMPLAINT: Stroke. HISTORY OF PRESENT ILLNESS: Mr. Saldivar is a pleasant 76-year-old male who is being evaluated by the neurology service per the request of Dr. Mcguire for a stroke. The patient was brought into [facility] Emergency Room with the chief complaint of altered mental status. Through the history taking of the emergency room physician, it was discovered that the patient had been having some word finding difficulties for the past few days. The patient was not on any aspirin at home. A CT scan of the brain was done in the emergency room, which showed no acute intracranial abnormalities. There was generalized atrophy and small vessels ischemic changes. The patient was admitted for further workup and management. A carotid Doppler was done, which showed no hemodynamically significant stenosis. While in the intensive care unit, the patient has significant worsening of a sudden onset of his symptoms. He became completely aphasic and was having right-sided weakness. A stat repeat CT scan of the brain was done, which again showed no changes. A CT angiogram of the neck was done, which showed no significant stenosis of the neck arteries. A CT angiogram of the brain showed hypoperfusion in the left middle cerebral artery. At that time, I was contacted with the consultation and I did start the patient on aspirin 300 mg rectally stat. Overnight, the patient's symptoms slowly improved. I did order an MRI of the brain, which showed multiple acute ischemic strokes, concerning for embolic phenomenon. Cardiology is following the patient for slightly elevated cardiac enzymes. His CBC showed mild anemia with a hemoglobin of 11.9 and thrombocytopenia at 114,000. At the time of my evaluation, the patient is having mild expressive aphasia and mild right hemiparesis. He denies any headache or visual changes. PAST MEDICAL HISTORY: Diabetes, coronary artery disease, hypertension, history of myocardial infarction, depression, anxiety disorder, history of coronary artery bypass grafting, history of hernia repair and orthopedic surgeries. SOCIAL HISTORY: The patient is a former smoker. He rarely drinks alcohol. He denies any drug use. FAMILY HISTORY: Positive for heart disease and diabetes. HOME MEDICATIONS: Reviewed in the chart. ALLERGIES: ARICEPT, ZOCOR, ZOLOFT. REVIEW OF SYSTEMS: CONSTITUTIONAL: Positive for fatigue. EYES: Negative. ENT: Negative. CARDIOVASCULAR: Negative. RESPIRATORY: Negative. NEUROLOGICAL: As mentioned above. GASTROINTESTINAL: Negative. GENITOURINARY: Negative. PSYCHIATRIC: Positive for history of depression and anxiety disorder. MUSCULOSKELETAL: Positive for occasional joint pain. ENDOCRINE: Positive for diabetes. DERMATOLOGICAL: Negative. PHYSICAL EXAM: Vital signs show a temperature of 98.6, pulse 58, respirations 13, blood pressure 166/81. GENERAL APPEARANCE: The patient is a well-developed, elderly male who appears to be in no acute distress. HEENT: Normocephalic, atraumatic, no facial asymmetry is seen. Extraocular muscles are intact except for slightly diminished upward gaze. Neck is supple with no masses felt. CARDIOVASCULAR: Bradycardic rate with a normal rhythm. ABDOMEN: Nontender, nondistended. Extremities showed no edema or clubbing. NEUROLOGICAL EXAM: The patient is awake and oriented to person and place. He could not recall the year. Speech is slightly dysarthric. Language testing showed diminished naming and repetition. Comprehension is intact. Strength is 4 out of 5 on the right and 5 out of 5 on the left. Pronator drift is present on the right. No obvious facial asymmetry is seen on cranial nerve testing. No tremors or seizure-like activity is seen. IMPRESSION: 1. Multiple acute ischemic strokes, likely embolic in etiology. 2. Expressive aphasia. 3. Right hemiparesis. RECOMMENDATIONS: The patient continues to have some expressive aphasia and right hemiparesis although the symptoms have improved overnight in severity. He is able to swallow and I will keep him on aspirin 325 mg daily. I did review his radiological workup and his MRI shows evidence of multiple acute ischemic strokes. Embolic in etiology is suspected. I will order a transesophageal echocardiogram to check for any intracardiac thrombus. Cardiology is following the patient. His fasting lipid panel was normal. I will order an EEG. Continue Protonix for GI prophylaxis and heparin for DVT prophylaxis. Given that he is on heparin, continue to monitor his platelet count as he does have mild thrombocytopenia at this time. Physical therapy and speech therapy are following the patient. I will continue to follow with you. Further recommendations to follow. Thank you for allowing me to participate in the care of your patient. If you have any questions, please feel free to contact me.
[2017-02-05 12:01] LABS: Glucose,Whole Blood 164 mg/dL (75-99)
--- NOTE | 2017-02-05 13:01 | P.PN ---
Subjective Principal diagnosis: acute stroke patient is awake and alert today. He still having difficulty with his speech. Apparently he was more coherent this morning with nursing staff. He appeared not oriented to me. He was following simple commands. Objective - Vital Signs Vital signs: Vital Signs Temp 98.2 F 02/05/17 09:00 Pulse 84 02/05/17 11:03 Resp 17 02/05/17 11:03 BP 173/78 02/05/17 11:03 Pulse Ox 98 02/05/17 11:03 Intake & Output 02/04/17 02/05/17 02/05/17 18:59 06:59 18:59 Intake Total 200 800 Output Total 550 275 Balance -350 525 Weight 79 kg 82.4 kg Intake: IV 800 Sodium Chloride 0.9% 1, 800 000 ml @ 100 mls/hr IV . Q10H EDUARDO Rx#:[id number] Intake, IV Titration 200 Amount Sodium Chloride 0.9% 1, 200 000 ml @ 100 mls/hr IV . Q10H EDUARDO Rx#:[id number] Output: Urine 550 275 Other: Voiding Method Bedpan Bedpan Urinal Urinal - Exam General: The patient is awake and alert, in no distress Eye: there is normal conjunctiva bilaterally. Neck: The neck is supple, there is no JVD. Cardiovascular: Normal S1-S2, no S3-S4, no murmurs. Respiratory: Lungs clear to auscultation bilaterally Gastrointestinal: Abdomen is soft, nontender Musculoskeletal: There is no pedal edema. Neurological:. Speech is normal. Skin: Skin is warm and dry - Labs CBC & Chem 7: 02/05/17 04:30 02/05/17 04:30 Labs: Abnormal Lab Results - Last 24 Hours (Table) 02/04/17 02/04/17 02/04/17 Range/Units 01:40 04:50 13:32 RBC (4.30-5.90) m/uL Hgb (13.0-17.5) gm/dL Hct (39.0-53.0) % Plt Count (150-450) k/uL Lymphocytes # (1.0-4.8) k/uL Chloride 110 H (98-107) mmol/L BUN 46 H (9-20) mg/dL Creatinine 1.81 H (0.66-1.25) mg/dL Glucose 161 H (74-99) mg/dL POC Glucose (mg/dL) (75-99) mg/dL Phosphorus (2.5-4.5) mg/dL Creatine Kinase 2214 H (55-170) U/L Troponin I (0.000-0.034) ng/mL Total Protein (6.3-8.2) g/dL Albumin (3.5-5.0) g/dL Homocysteine 20.95 H (4.00-14.00) umol/L 02/04/17 02/04/17 02/04/17 Range/Units 15:00 16:55 19:34 RBC (4.30-5.90) m/uL Hgb (13.0-17.5) gm/dL Hct (39.0-53.0) % Plt Count (150-450) k/uL Lymphocytes # (1.0-4.8) k/uL Chloride (98-107) mmol/L BUN (9-20) mg/dL Creatinine (0.66-1.25) mg/dL Glucose (74-99) mg/dL POC Glucose (mg/dL) 174 H 220 H (75-99) mg/dL Phosphorus (2.5-4.5) mg/dL Creatine Kinase (55-170) U/L Troponin I 0.116 H* (0.000-0.034) ng/mL Total Protein (6.3-8.2) g/dL Albumin (3.5-5.0) g/dL Homocysteine (4.00-14.00) umol/L 02/04/17 02/05/17 02/05/17 Range/Units 20:19 04:30 04:30 RBC 4.04 L (4.30-5.90) m/uL Hgb 12.2 L (13.0-17.5) gm/dL Hct 36.0 L (39.0-53.0) % Plt Count 130 L (150-450) k/uL Lymphocytes # 0.9 L (1.0-4.8) k/uL Chloride 112 H (98-107) mmol/L BUN 39 H (9-20) mg/dL Creatinine 1.74 H (0.66-1.25) mg/dL Glucose 112 H (74-99) mg/dL POC Glucose (mg/dL) 273 H (75-99) mg/dL Phosphorus 2.3 L (2.5-4.5) mg/dL Creatine Kinase (55-170) U/L Troponin I (0.000-0.034) ng/mL Total Protein 6.2 L (6.3-8.2) g/dL Albumin 3.0 L (3.5-5.0) g/dL Homocysteine (4.00-14.00) umol/L 02/05/17 02/05/17 Range/Units 08:52 12:00 RBC (4.30-5.90) m/uL Hgb (13.0-17.5) gm/dL Hct (39.0-53.0) % Plt Count (150-450) k/uL Lymphocytes # (1.0-4.8) k/uL Chloride (98-107) mmol/L BUN (9-20) mg/dL Creatinine (0.66-1.25) mg/dL Glucose (74-99) mg/dL POC Glucose (mg/dL) 109 H 164 H (75-99) mg/dL Phosphorus (2.5-4.5) mg/dL Creatine Kinase (55-170) U/L Troponin I (0.000-0.034) ng/mL Total Protein (6.3-8.2) g/dL Albumin (3.5-5.0) g/dL Homocysteine (4.00-14.00) umol/L Assessment and Plan Plan: 1. multifocal ischemic stroke, possibly embolic in origin: seen and evaluated by neurology. MRI showed multiple lesions involving the right caudate nucleus, right basal ganglia, right temporal lobe, right parietal lobe, and posterior left parietal lobe. Currently on full dose aspirin. plan for GERALD in the morning. Carotid artery Doppler bilaterally with no significant stenosis. 2. Acute encephalopathy: Most likely toxo metabolic and secondary to multifocal stroke 3. Microscopic hematuria with possible underlying cystitis: I would start the patient on IV ceftriaxone and obtain urine culture. 4. Stage IV chronic kidney disease with baseline creatinine around 2-2.5 5. 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 Coronary artery disease: Managed medically 7. Anemia of chronic disease and iron deficiency anemia 8. Rhabdomyolysis currently on IV fluid hydration. We will continue to monitor closely 9. Troponin elevation: Most likely not thrombotic troponin leak. No acute ischemic changes on 12-lead EKG. No chest pain. Echocardiogram ordered. Cardiology consulted for further evaluation. 10. Type 2 diabetes mellitus: Hold oral agents for now. Started on Lantus 10 units at bedtime. 11. Goals of care: Discussed by me with the patient and his during last office visit. Patient wishes to be DO NOT RESUSCITATE/DO NOT INTUBATE. We will reconfirm with his . 12. GI and DVT prophylaxis Today, I reviewed his medication list and lab work results. We will continue current regimen. Appreciate technology consultant's recommendations. Continue supportive care. Repeat lab work in the morning.
--- NOTE | 2017-02-05 16:56 | P.PN ---
Subjective Patient is a pleasant 76-year-old male who is being followed by the neurology service for stroke. Patient was found to have altered mental status at home and was brought to [facility] emergency room. Computed tomography scan of the brain was done in the emergency room which showed no acute intracranial abnormalities. CT did show generalized atrophy and small vessel ischemic changes. Carotid Doppler showed no hemodynamically significant stenosis. A CT angios the neck was done which showed no significant stenosis of the neck arteries. MRI of the brain showed multiple acute ischemic strokes which is concerning for embolic phenomenon. Cardiology is following and a GERALD is planned for tomorrow morning. The patient continues to have expressive aphasia and mild right hemiparesis. At the time of my evaluation, patient is sitting up in bed and appears to be in no acute distress. is at the bedside. Objective - Vital Signs Vital signs: Vital Signs Temp 97.6 F 02/05/17 15:00 Pulse 59 L 02/05/17 15:00 Resp 16 02/05/17 15:00 BP 176/81 02/05/17 15:00 Pulse Ox 98 02/05/17 15:00 Intake & Output 02/04/17 02/05/17 02/05/17 18:59 06:59 18:59 Intake Total 200 800 Output Total 550 275 Balance -350 525 Weight 79 kg 82.4 kg Intake: IV 800 Sodium Chloride 0.9% 1, 800 000 ml @ 100 mls/hr IV . Q10H EDUARDO Rx#:[id number] Intake, IV Titration 200 Amount Sodium Chloride 0.9% 1, 200 000 ml @ 100 mls/hr IV . Q10H EDUARDO Rx#:[id number] Output: Urine 550 275 Other: Voiding Method Bedpan Bedpan Urinal Urinal - Exam PHYSICAL EXAM: GENERAL APPEARANCE: Patient is a well-developed, male who appears to be in no acute distress. HEENT: Normocephalic, atraumatic, no obvious facial asymmetry is seen. Neck is supple with no masses felt. CARDIOVASCULAR: Regular rate and rhythm. ABDOMEN: Nontender, nondistended. EXTREMITIES: Show no edema or clubbing. NEUROLOGICAL EXAM: Patient is awake, alert, and oriented 2. Patient cannot recall the year or the month. Speech is dysarthric. Language testing shows diminished naming and repetition. Comprehension is intact and patient follow simple commands. Strength is 4/5 on the right and 5/5 on the left. No pronator drift is noted. No obvious facial asymmetry is seen on cranial nerve testing. No tremors or seizure-like activity is noted. - Labs CBC & Chem 7: 02/05/17 04:30 02/05/17 04:30 Labs: Abnormal Lab Results - Last 24 Hours (Table) 02/04/17 02/04/17 02/04/17 Range/Units 01:40 04:50 16:55 RBC (4.30-5.90) m/uL Hgb (13.0-17.5) gm/dL Hct (39.0-53.0) % Plt Count (150-450) k/uL Lymphocytes # (1.0-4.8) k/uL Chloride (98-107) mmol/L BUN (9-20) mg/dL Creatinine (0.66-1.25) mg/dL Glucose (74-99) mg/dL POC Glucose (mg/dL) 220 H (75-99) mg/dL Phosphorus (2.5-4.5) mg/dL Creatine Kinase 2214 H (55-170) U/L Troponin I (0.000-0.034) ng/mL Total Protein (6.3-8.2) g/dL Albumin (3.5-5.0) g/dL Homocysteine 20.95 H (4.00-14.00) umol/L 02/04/17 02/04/17 02/05/17 Range/Units 19:34 20:19 04:30 RBC 4.04 L (4.30-5.90) m/uL Hgb 12.2 L (13.0-17.5) gm/dL Hct 36.0 L (39.0-53.0) % Plt Count 130 L (150-450) k/uL Lymphocytes # 0.9 L (1.0-4.8) k/uL Chloride (98-107) mmol/L BUN (9-20) mg/dL Creatinine (0.66-1.25) mg/dL Glucose (74-99) mg/dL POC Glucose (mg/dL) 273 H (75-99) mg/dL Phosphorus (2.5-4.5) mg/dL Creatine Kinase (55-170) U/L Troponin I 0.116 H* (0.000-0.034) ng/mL Total Protein (6.3-8.2) g/dL Albumin (3.5-5.0) g/dL Homocysteine (4.00-14.00) umol/L 02/05/17 02/05/17 02/05/17 Range/Units 04:30 08:52 12:00 RBC (4.30-5.90) m/uL Hgb (13.0-17.5) gm/dL Hct (39.0-53.0) % Plt Count (150-450) k/uL Lymphocytes # (1.0-4.8) k/uL Chloride 112 H (98-107) mmol/L BUN 39 H (9-20) mg/dL Creatinine 1.74 H (0.66-1.25) mg/dL Glucose 112 H (74-99) mg/dL POC Glucose (mg/dL) 109 H 164 H (75-99) mg/dL Phosphorus 2.3 L (2.5-4.5) mg/dL Creatine Kinase (55-170) U/L Troponin I (0.000-0.034) ng/mL Total Protein 6.2 L (6.3-8.2) g/dL Albumin 3.0 L (3.5-5.0) g/dL Homocysteine (4.00-14.00) umol/L Assessment and Plan Plan: Impression: 1. 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 2. Expressive aphasia 3. Right hemiparesis, improving Recommendations: Patient continues to have expressive aphasia and right hemiparesis although patient and report improvement of symptoms today as compared to yesterday. Patient has no difficulty swallowing. I recommend continuing aspirin 325 mg by mouth daily. Due to the evidence of multiple acute ischemic strokes, I suspect these are embolic in nature. Patient is scheduled for transesophageal echocardiogram in the morning. Cardiology continues to follow the patient. EEG was ordered and is pending. Continue physical therapy and speech therapy. I will continue to follow with you. Further recommendations to follow. I performed an examination of the patient and discussed the management with the RETAIL FIELD MERCHANDISER. I have reviewed the RETAIL FIELD MERCHANDISER notes and agree with the findings and plan of care.
[2017-02-05 17:46] LABS: Glucose,Whole Blood 246 mg/dL (75-99)
[2017-02-05 20:35] LABS: Glucose,Whole Blood 190 mg/dL (75-99)
[2017-02-05] MEDS: INSULIN GLARGINE 100 UNIT/ML 10 ML VIAL SQ SCH (23:35)
[2017-02-06] MEDS: SODIUM CHLORIDE 0.9% 1,000 ML IV SCH ×4 (02:45→19:56)
[2017-02-06 07:23] LABS: Glucose,Whole Blood 101 mg/dL (75-99)
[2017-02-06] MEDS: INSULIN LISPRO (humaLOG) 300 UNIT/3 ML VIAL SQ SCH ×4 (07:52→21:58)
[2017-02-06] MEDS: PANTOPRAZOLE 40 MG/10 ML VIAL IVP SCH (08:03)
[2017-02-06] MEDS: PARoxetine 20 MG TAB PO SCH (08:04)
[2017-02-06] MEDS: CARVEDILOL 6.25 MG TAB PO SCH ×2 (08:04→17:07)
[2017-02-06] MEDS: amLODIPine 5 MG TAB PO SCH ×2 (08:04→21:57)
[2017-02-06] MEDS: ASPIRIN 325 MG TAB PO SCH (08:04)
[2017-02-06] MEDS: HEPARIN SODIUM,PORCINE 5,000 UNIT/ML 1 ML VIAL SQ SCH ×2 (08:04→21:58)
[2017-02-06 08:13] LABS: Basophils % (A) 0 %; CH 29.9; CHCM 32.9; Eosinophils # (A) 0.1 k/uL (0-0.7); Eosinophils % (A) 2 %; HCT 38.6 % (39.0-53.0); HDW 2.76; HGB 12.5 gm/dL (13.0-17.5); Luc # (Auto) 0.12; Luc % (Auto) 2; Lymphocytes # (A) 0.8 k/uL (1.0-4.8); Lymphocytes % (A) 11 %; MCH 29.7 pg (25.0-35.0); MCHC 32.5 g/dL (31.0-37.0); MCV 91.4 fL (80.0-100.0); Mean Platelet Volume 8.2; Monocytes # (A) 0.5 k/uL (0-1.0); Monocytes % (A) 7 %; Neutrophils # (A) 5.6 k/uL (1.3-7.7); Neutrophils % (A) 78 %; RBC 4.22 m/uL (4.30-5.90); RDW 14.3 % (11.5-15.5); WBC 7.2 k/uL (3.8-10.6); WBC (Perox) 7.65
[2017-02-06 08:42] LABS: Calcium 8.6 mg/dL (8.4-10.2); Magnesium 1.8 mg/dL (1.6-2.3); Phosphorous 3.4 mg/dL (2.5-4.5); Potassium 3.8 mmol/L (3.5-5.1); Total Bilirubin 1.2 mg/dL (0.2-1.3); Total Protein 6.4 g/dL (6.3-8.2)
[2017-02-06] MEDS: hydrALAZINE HCL 25 MG TAB PO SCH ×3 (10:58→21:58)
[2017-02-06] MEDS ORDERED: fentaNYL (PF) 50 MCG/ML 2 ML AMP ONE (11:27)
[2017-02-06] MEDS ORDERED: MIDAZOLAM 2 MG/2 ML VIAL ONE (11:27)
[2017-02-06 11:55] LABS: Glucose,Whole Blood 108 mg/dL (75-99)
[2017-02-06] MEDS ORDERED: IV FLUID CONTINUATION 200 ML IV ONE (12:00)
[2017-02-06] MEDS: BENZOCAINE SPRAY 100 APPLIC/CAN MUCOUS MEM ONE ×2 (12:00→12:08)
[2017-02-06] MEDS ORDERED: fentaNYL (PF) 50 MCG/ML 2 ML AMP IV ONE (12:20)
[2017-02-06] MEDS ORDERED: MIDAZOLAM 2 MG/2 ML VIAL IV ONE (12:20)
--- NOTE | 2017-02-06 13:02 | P.PN ---
Subjective Principal diagnosis: acute stroke Patient is scheduled for GERALD today Objective - Vital Signs Vital signs: Vital Signs Temp 97.6 F 02/06/17 11:10 Pulse 54 L 02/06/17 12:36 Resp 12 02/06/17 12:02 BP 100/55 02/06/17 12:36 Pulse Ox 94 L 02/06/17 12:36 Intake & Output 02/05/17 02/06/17 02/06/17 18:59 06:59 18:59 Intake Total 50 Output Total 275 Balance -225 Weight 83 kg Intake: IV 50 Output: Urine 275 Other: Voiding Method Bedpan Bedpan Bedpan Urinal Urinal Urinal Incontinent # Voids 1 1 - Labs CBC & Chem 7: 02/06/17 07:26 02/06/17 07:26 Labs: Abnormal Lab Results - Last 24 Hours (Table) 02/05/17 02/05/17 02/06/17 Range/Units 17:37 20:33 07:20 RBC (4.30-5.90) m/uL Hgb (13.0-17.5) gm/dL Hct (39.0-53.0) % Plt Count (150-450) k/uL Lymphocytes # (1.0-4.8) k/uL Chloride (98-107) mmol/L BUN (9-20) mg/dL Creatinine (0.66-1.25) mg/dL Glucose (74-99) mg/dL POC Glucose (mg/dL) 246 H 190 H 101 H (75-99) mg/dL Albumin (3.5-5.0) g/dL 02/06/17 02/06/17 02/06/17 Range/Units 07:26 07:26 11:25 RBC 4.22 L (4.30-5.90) m/uL Hgb 12.5 L (13.0-17.5) gm/dL Hct 38.6 L (39.0-53.0) % Plt Count 146 L (150-450) k/uL Lymphocytes # 0.8 L (1.0-4.8) k/uL Chloride 112 H (98-107) mmol/L BUN 30 H (9-20) mg/dL Creatinine 1.55 H (0.66-1.25) mg/dL Glucose 101 H (74-99) mg/dL POC Glucose (mg/dL) 108 H (75-99) mg/dL Albumin 3.2 L (3.5-5.0) g/dL Assessment and Plan Plan: 1. multifocal ischemic stroke, possibly embolic in origin: seen and evaluated by neurology. MRI showed multiple lesions involving the right caudate nucleus, right basal ganglia, right temporal lobe, right parietal lobe, and posterior left parietal lobe. Currently on full dose aspirin. plan for GERALD today. Carotid artery Doppler bilaterally with no significant stenosis. 2. Acute encephalopathy: Most likely toxo metabolic and secondary to multifocal stroke 3. Microscopic hematuria with possible underlying cystitis: I would start the patient on IV ceftriaxone and obtain urine culture. 4. Stage IV chronic kidney disease with baseline creatinine around 2-2.5 5. 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 Coronary artery disease: Managed medically 7. Anemia of chronic disease and iron deficiency anemia 8. Rhabdomyolysis currently on IV fluid hydration. We will continue to monitor closely 9. Troponin elevation: Most likely not thrombotic troponin leak. No acute ischemic changes on 12-lead EKG. No chest pain. Echocardiogram ordered. Cardiology consulted for further evaluation. 10. Type 2 diabetes mellitus: Hold oral agents for now. Started on Lantus 10 units at bedtime. 11. Goals of care: Discussed by me with the patient and his during last office visit. Patient wishes to be DO NOT RESUSCITATE/DO NOT INTUBATE. We will reconfirm with his . 12. GI and DVT prophylaxis Today, I reviewed his medication list and lab work results. We will continue current regimen. Appreciate project management consultant's recommendations. Continue supportive care. Repeat lab work in the morning.
--- NOTE | 2017-02-06 14:58 | P.PN ---
Subjective Patient is a pleasant 76-year-old male who is being followed by the neurology service for stroke. Patient was found to have altered mental status at home and was brought to [facility] emergency room. Computed tomography scan of the brain was done in the emergency room which showed no acute intracranial abnormalities. CT did show generalized atrophy and small vessel ischemic changes. Carotid Doppler showed no hemodynamically significant stenosis. A CT angios the neck was done which showed no significant stenosis of the neck arteries. MRI of the brain showed multiple acute ischemic strokes which is concerning for embolic phenomenon. Patient had GERALD done this morning and results are pending. At the time of my evaluation, patient is sleeping and most likely still sedated from procedure. is at the bedside. Objective - Vital Signs Vital signs: Vital Signs Temp 97.4 F L 02/06/17 13:13 Pulse 58 L 02/06/17 13:13 Resp 16 02/06/17 13:13 BP 157/67 02/06/17 13:13 Pulse Ox 95 02/06/17 13:13 Intake & Output 02/05/17 02/06/17 02/06/17 18:59 06:59 18:59 Intake Total 50 Output Total 275 Balance -225 Weight 83 kg Intake: IV 50 Output: Urine 275 Other: Voiding Method Bedpan Bedpan Bedpan Urinal Urinal Urinal Incontinent # Voids 1 1 - Exam PHYSICAL EXAM: GENERAL APPEARANCE: Patient is a well-developed, male who appears to be in no acute distress. HEENT: Normocephalic, atraumatic, no obvious facial asymmetry is seen. Neck is supple with no masses felt. CARDIOVASCULAR: Regular rate and rhythm. ABDOMEN: Nontender, nondistended. EXTREMITIES: Show no edema or clubbing. NEUROLOGICAL EXAM: Patient is sedated from procedure done this morning. I am unable to get a meaningful neurological exam. - Labs CBC & Chem 7: 02/06/17 07:26 02/06/17 07:26 Labs: Abnormal Lab Results - Last 24 Hours (Table) 02/05/17 02/05/17 02/06/17 Range/Units 17:37 20:33 07:20 RBC (4.30-5.90) m/uL Hgb (13.0-17.5) gm/dL Hct (39.0-53.0) % Plt Count (150-450) k/uL Lymphocytes # (1.0-4.8) k/uL Chloride (98-107) mmol/L BUN (9-20) mg/dL Creatinine (0.66-1.25) mg/dL Glucose (74-99) mg/dL POC Glucose (mg/dL) 246 H 190 H 101 H (75-99) mg/dL Albumin (3.5-5.0) g/dL 02/06/17 02/06/17 02/06/17 Range/Units 07:26 07:26 11:25 RBC 4.22 L (4.30-5.90) m/uL Hgb 12.5 L (13.0-17.5) gm/dL Hct 38.6 L (39.0-53.0) % Plt Count 146 L (150-450) k/uL Lymphocytes # 0.8 L (1.0-4.8) k/uL Chloride 112 H (98-107) mmol/L BUN 30 H (9-20) mg/dL Creatinine 1.55 H (0.66-1.25) mg/dL Glucose 101 H (74-99) mg/dL POC Glucose (mg/dL) 108 H (75-99) mg/dL Albumin 3.2 L (3.5-5.0) g/dL Assessment and Plan Plan: Impression: 1. 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 2. Expressive aphasia 3. Right hemiparesis, improving Recommendations: Reportedly, patient continues to have expressive aphasia and right hemiparesis. I recommend continuing aspirin 325 mg by mouth daily. Due to the evidence of multiple acute ischemic strokes, I suspect these are embolic in nature. Patient had transesophageal echocardiogram done and results are pending. Cardiology continues to follow the patient. EEG was ordered and is pending. Continue physical therapy and speech therapy. I will continue to follow with you. Further recommendations to follow. I performed an examination of the patient and discussed the management with the BISQUE CLEANER. I have reviewed the BISQUE CLEANER notes and agree with the findings and plan of care.
[2017-02-06 17:13] LABS: Glucose,Whole Blood 118 mg/dL (75-99)
[2017-02-06 20:27] LABS: Glucose,Whole Blood 188 mg/dL (75-99)
[2017-02-06] MEDS: INSULIN GLARGINE 100 UNIT/ML 10 ML VIAL SQ SCH (21:57)
[2017-02-07] MEDS: SODIUM CHLORIDE 0.9% 1,000 ML IV SCH ×3 (05:26→18:22)
[2017-02-07 07:35] LABS: Glucose,Whole Blood 113 mg/dL (75-99)
[2017-02-07] MEDS: CARVEDILOL 6.25 MG TAB PO SCH (07:55)
[2017-02-07] MEDS: amLODIPine 5 MG TAB PO SCH ×2 (07:56→21:57)
[2017-02-07] MEDS: PANTOPRAZOLE 40 MG TABLET PO SCH (07:56)
[2017-02-07] MEDS: HEPARIN SODIUM,PORCINE 5,000 UNIT/ML 1 ML VIAL SQ SCH (07:57)
[2017-02-07] MEDS: PARoxetine 20 MG TAB PO SCH (07:57)
[2017-02-07] MEDS: ASPIRIN 325 MG TAB PO SCH (07:57)
[2017-02-07] MEDS: hydrALAZINE HCL 25 MG TAB PO SCH ×3 (08:00→21:58)
[2017-02-07] MEDS: INSULIN LISPRO (humaLOG) 300 UNIT/3 ML VIAL SQ SCH ×4 (08:12→21:58)
[2017-02-07 08:19] LABS: Basophils % (A) 0 %; CH 30.2; Eosinophils # (A) 0.3 k/uL (0-0.7); Eosinophils % (A) 7 %; HCT 32.6 % (39.0-53.0); HDW 2.91; HGB 10.8 gm/dL (13.0-17.5); Luc # (Auto) 0.14; Luc % (Auto) 3; Lymphocytes # (A) 0.6 k/uL (1.0-4.8); Lymphocytes % (A) 13 %; MCH 29.6 pg (25.0-35.0); MCHC 33.1 g/dL (31.0-37.0); MCV 89.3 fL (80.0-100.0); Mean Platelet Volume 7.9; Monocytes # (A) 0.4 k/uL (0-1.0); Monocytes % (A) 8 %; Neutrophils # (A) 3.4 k/uL (1.3-7.7); Neutrophils % (A) 69 %; RBC 3.65 m/uL (4.30-5.90); RDW 14.2 % (11.5-15.5); WBC 4.9 k/uL (3.8-10.6); WBC (Perox) 5.27
[2017-02-07 08:38] LABS: Calcium 8.2 mg/dL (8.4-10.2); Magnesium 1.9 mg/dL (1.6-2.3); Potassium 3.4 mmol/L (3.5-5.1); Total Bilirubin 0.8 mg/dL (0.2-1.3); Total Protein 5.7 g/dL (6.3-8.2)
[2017-02-07] MEDS ORDERED: Potassium Replacement Protocol 1 EACH MISC MISCELLANE PRN (10:06)
[2017-02-07 10:55] VITALS: BMI 25.4
[2017-02-07 10:57] LABS: Glucose,Whole Blood 146 mg/dL (75-99)
--- NOTE | 2017-02-07 10:57 | P.PN ---
Subjective Principal diagnosis: acute stroke Patient is doing well today. He is awake and alert. He is still having significant difficulty with his speech. Objective - Vital Signs Vital signs: Vital Signs Temp 97.7 F 02/07/17 07:00 Pulse 57 L 02/07/17 08:00 Resp 20 02/07/17 08:00 BP 130/64 02/07/17 07:00 Pulse Ox 98 02/07/17 07:00 Intake & Output 02/06/17 02/07/17 02/07/17 18:59 06:59 18:59 Intake Total 50 1390 Output Total 550 200 Balance -500 1190 Weight 83 kg 83 kg Intake: IV 50 800 Sodium Chloride 0.9% 1, 800 000 ml @ 100 mls/hr IV . Q10H EDUARDO Rx#:[id number] Oral 590 Output: Urine 550 200 Other: Voiding Method Bedpan Bedpan Bedpan Urinal Urinal Urinal Incontinent Incontinent Incontinent # Voids 1 2 - Exam General: The patient is awake and alert, in no distress Eye: there is normal conjunctiva bilaterally. Neck: The neck is supple, there is no JVD. Cardiovascular: Normal S1-S2, no S3-S4, no murmurs. Respiratory: Lungs clear to auscultation bilaterally Gastrointestinal: Abdomen is soft, nontender Musculoskeletal: There is no pedal edema. Neurological:. Speech is normal. Skin: Skin is warm and dry - Labs CBC & Chem 7: 02/07/17 07:34 02/07/17 07:34 Labs: Abnormal Lab Results - Last 24 Hours (Table) 02/06/17 02/06/17 02/06/17 Range/Units 11:25 17:07 20:16 RBC (4.30-5.90) m/uL Hgb (13.0-17.5) gm/dL Hct (39.0-53.0) % Plt Count (150-450) k/uL Lymphocytes # (1.0-4.8) k/uL Potassium (3.5-5.1) mmol/L Chloride (98-107) mmol/L Carbon Dioxide (22-30) mmol/L BUN (9-20) mg/dL Creatinine (0.66-1.25) mg/dL Glucose (74-99) mg/dL POC Glucose (mg/dL) 108 H 118 H 188 H (75-99) mg/dL Calcium (8.4-10.2) mg/dL Total Protein (6.3-8.2) g/dL Albumin (3.5-5.0) g/dL 02/07/17 02/07/17 02/07/17 Range/Units 07:17 07:34 07:34 RBC 3.65 L (4.30-5.90) m/uL Hgb 10.8 L (13.0-17.5) gm/dL Hct 32.6 L (39.0-53.0) % Plt Count 122 L (150-450) k/uL Lymphocytes # 0.6 L (1.0-4.8) k/uL Potassium 3.4 L (3.5-5.1) mmol/L Chloride 115 H (98-107) mmol/L Carbon Dioxide 21 L (22-30) mmol/L BUN 35 H (9-20) mg/dL Creatinine 1.85 H (0.66-1.25) mg/dL Glucose 114 H (74-99) mg/dL POC Glucose (mg/dL) 113 H (75-99) mg/dL Calcium 8.2 L (8.4-10.2) mg/dL Total Protein 5.7 L (6.3-8.2) g/dL Albumin 2.7 L (3.5-5.0) g/dL Assessment and Plan Plan: 1. multifocal ischemic stroke, possibly embolic in origin: seen and evaluated by neurology. MRI showed multiple lesions involving the right caudate nucleus, right basal ganglia, right temporal lobe, right parietal lobe, and posterior left parietal lobe. Currently on full dose aspirin. Patient underwent GERALD showing no obvious source or thrombosis. We discussed this case with cardiology. Given his significant thrombotic event he will be started on anticoagulation and his aspirin dose will be lowered to 81 mg daily. Carotid artery Doppler bilaterally with no significant stenosis. 2. Acute encephalopathy: Most likely toxo metabolic and secondary to multifocal stroke 3. Microscopic hematuria with possible underlying cystitis: I would start the patient on IV ceftriaxone and obtain urine culture. 4. Stage IV chronic kidney disease with baseline creatinine around 2-2.5 5. 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 Coronary artery disease: Managed medically 7. Anemia of chronic disease and iron deficiency anemia 8. Rhabdomyolysis currently on IV fluid hydration. We will continue to monitor closely 9. Troponin elevation: Most likely not thrombotic troponin leak. No acute ischemic changes on 12-lead EKG. No chest pain. Echocardiogram ordered. Cardiology consulted for further evaluation. 10. Type 2 diabetes mellitus: Hold oral agents for now. Started on Lantus 10 units at bedtime. 11. Goals of care: Discussed by me with the patient and his during last office visit. Patient wishes to be DO NOT RESUSCITATE/DO NOT INTUBATE. We will reconfirm with his . 12. GI and DVT prophylaxis Today, I reviewed his medication list and lab work results. We will continue current regimen. Appreciate business analyst consultant's recommendations. Continue supportive care. Repeat lab work in the morning. Awaiting PT/OT evaluation. Patient would benefit from rehab and speech therapy.
[2017-02-07] MEDS: POTASSIUM CHLORIDE ER 20 MEQ TAB.ER PO SCH ×3 (12:08→16:43)
--- NOTE | 2017-02-07 12:21 | PN ---
This patient is admitted with a stroke. The patient's MRI is suggestive of embolic stroke. Patient underwent a transesophageal echocardiogram. No definite thrombus was visualized. Patient had a very small PFO with a few bubbles crossing across the septum suggestive of very small [id number]-evue shunt. I do not think this small PFO is responsible for the patient's stroke; however, patient's ANKIT VASC score is high and in view of the patient's embolic stroke, it will be a good idea to consider to treat him with anticoagulant. I discussed these thoughts with Dr. Mcguire and patient will be started on Eliquis. We will recommend to do the 30-day event monitor as an outpatient to detect any evidence of paroxysmal atrial fibrillation.
[2017-02-07 15:40] LABS: Glucose,Whole Blood 172 mg/dL (75-99)
--- NOTE | 2017-02-07 16:08 | CT ---
EXAMINATION TYPE: CT brain wo con DATE OF EXAM: 02/07/2017 4:00 PM COMPARISON: 02/04/2017 HISTORY: Patient unable to move right arm. Recent stroke, possible worsening symptoms. CT DLP: 1156.[address] of the brain was performed. The ventricles, basal cisterns and sulci overlying the cerebral convexities demonstrate mild enlargem ent. Stable decreased attenuation right caudate nucleus as well as the high left frontal parietal lob e. There is no evidence for intracranial hemorrhage or sulcal effacement. There is decreased attenuation about the periventricular white matter and deep white matter of both c erebral hemispheres, compatible with chronic small vessel ischemia. Differential diagnosis does inclu de demyelination. No mass effects are seen.No midline shift. Osseous calvarium is intact. If symptoms persist consider MRI. IMPRESSION: 1.Stable decreased attenuation right caudate nucleus as well as the high left frontal parietal lobe. Consistent with recent vascular insult. No hemorrhagic transformation. 2. Age related atrophic and chronic small vessel ischemic change.
--- NOTE | 2017-02-07 16:36 | P.PN ---
Subjective Patient is a pleasant 76-year-old male who is being followed by the neurology service for stroke. Patient was found to have altered mental status at home and was brought to [facility] emergency room. Computed tomography scan of the brain was done in the emergency room which showed no acute intracranial abnormalities. CT did show generalized atrophy and small vessel ischemic changes. Carotid Doppler showed no hemodynamically significant stenosis. A CT angios the neck was done which showed no significant stenosis of the neck arteries. MRI of the brain showed multiple acute ischemic strokes which is concerning for embolic phenomenon. Patient had GERALD done and results are noted. Patient will likely be started on Eliquis. At the time of my evaluation, patient is sitting up in bed eating lunch and appears to be in no acute distress. Dysarthria continues but is slightly improved. is at the bedside. Objective - Vital Signs Vital signs: Vital Signs Temp 97.7 F 02/07/17 07:00 Pulse 57 L 02/07/17 08:00 Resp 20 02/07/17 08:00 BP 130/64 02/07/17 07:00 Pulse Ox 98 02/07/17 07:00 Intake & Output 02/06/17 02/07/17 02/07/17 18:59 06:59 18:59 Intake Total 50 1390 1050 Output Total 550 200 Balance -500 1190 1050 Weight 83 kg 83 kg Intake: IV 50 800 400 Sodium Chloride 0.9% 1, 800 400 000 ml @ 100 mls/hr IV . Q10H EDUARDO Rx#:[id number] Intake, IV Titration 50 Amount cefTRIAXone 1,000 mg In 50 Sodium Chloride 0.9% 50 ml @ 100 mls/hr IVPB Q24HR EDUARDO Rx#:[id number] Oral 590 600 Output: Urine 550 200 Other: Voiding Method Bedpan Bedpan Bedpan Urinal Urinal Urinal Incontinent Incontinent Incontinent # Voids 1 2 3 - Exam PHYSICAL EXAM: GENERAL APPEARANCE: Patient is a well-developed, male who appears to be in no acute distress. HEENT: Normocephalic, atraumatic, no obvious facial asymmetry is seen. Neck is supple with no masses felt. CARDIOVASCULAR: Regular rate and rhythm. ABDOMEN: Nontender, nondistended. EXTREMITIES: Show no edema or clubbing. NEUROLOGICAL EXAM: Patient is awake, alert, and oriented 2. Patient is unclear what month this is. Speech is dysarthric. Language is normal. Comprehension is intact. Strength is 3/5 in right upper extremity and 4/5 in right lower extremity. Strength is 5-/5in left upper and lower extremity. Patient has mild right facial droop on cranial nerve testing. Mild sensory deficit to light touch in bilateral lower distal extremities. No tremors or seizure-like activity is noted. - Labs CBC & Chem 7: 02/07/17 07:34 02/07/17 07:34 Labs: Abnormal Lab Results - Last 24 Hours (Table) 02/06/17 02/06/17 02/07/17 Range/Units 17:07 20:16 07:17 RBC (4.30-5.90) m/uL Hgb (13.0-17.5) gm/dL Hct (39.0-53.0) % Plt Count (150-450) k/uL Lymphocytes # (1.0-4.8) k/uL Potassium (3.5-5.1) mmol/L Chloride (98-107) mmol/L Carbon Dioxide (22-30) mmol/L BUN (9-20) mg/dL Creatinine (0.66-1.25) mg/dL Glucose (74-99) mg/dL POC Glucose (mg/dL) 118 H 188 H 113 H (75-99) mg/dL Calcium (8.4-10.2) mg/dL Total Protein (6.3-8.2) g/dL Albumin (3.5-5.0) g/dL 02/07/17 02/07/17 02/07/17 Range/Units 07:34 07:34 10:53 RBC 3.65 L (4.30-5.90) m/uL Hgb 10.8 L (13.0-17.5) gm/dL Hct 32.6 L (39.0-53.0) % Plt Count 122 L (150-450) k/uL Lymphocytes # 0.6 L (1.0-4.8) k/uL Potassium 3.4 L (3.5-5.1) mmol/L Chloride 115 H (98-107) mmol/L Carbon Dioxide 21 L (22-30) mmol/L BUN 35 H (9-20) mg/dL Creatinine 1.85 H (0.66-1.25) mg/dL Glucose 114 H (74-99) mg/dL POC Glucose (mg/dL) 146 H (75-99) mg/dL Calcium 8.2 L (8.4-10.2) mg/dL Total Protein 5.7 L (6.3-8.2) g/dL Albumin 2.7 L (3.5-5.0) g/dL 02/07/17 Range/Units 15:38 RBC (4.30-5.90) m/uL Hgb (13.0-17.5) gm/dL Hct (39.0-53.0) % Plt Count (150-450) k/uL Lymphocytes # (1.0-4.8) k/uL Potassium (3.5-5.1) mmol/L Chloride (98-107) mmol/L Carbon Dioxide (22-30) mmol/L BUN (9-20) mg/dL Creatinine (0.66-1.25) mg/dL Glucose (74-99) mg/dL POC Glucose (mg/dL) 172 H (75-99) mg/dL Calcium (8.4-10.2) mg/dL Total Protein (6.3-8.2) g/dL Albumin (3.5-5.0) g/dL Assessment and Plan Plan: Impression: 1. 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 2. Expressive aphasia 3. Right hemiparesis, improving Recommendations: Reportedly, patient continues to have expressive aphasia and right hemiparesis. Due to the evidence of multiple acute ischemic strokes, I suspect these are embolic in nature. Patient had transesophageal echocardiogram done and results are reviewed. Cardiology continues to follow the patient. Per cardiology, patient will be started on Eliquis. EEG was ordered and is pending. Continue physical therapy and speech therapy. I will continue to follow with you. Further recommendations to follow. I performed an examination of the patient and discussed the management with the GIS DEVELOPER. I have reviewed the GIS DEVELOPER notes and agree with the findings and plan of care.
[2017-02-07 17:18] LABS: Glucose,Whole Blood 185 mg/dL (75-99)
[2017-02-07] MEDS: CARVEDILOL 3.125 MG TAB PO SCH (17:46)
[2017-02-07 19:56] LABS: Glucose,Whole Blood 205 mg/dL (75-99)
[2017-02-07] MEDS: INSULIN GLARGINE 100 UNIT/ML 10 ML VIAL SQ SCH (21:00)
[2017-02-07] MEDS: APIXABAN 2.5 MG TABLET PO SCH (21:57)
[2017-02-08 07:40] LABS: Glucose,Whole Blood 100 mg/dL (75-99)
[2017-02-08 07:50] LABS: Basophils % (A) 1 %; CH 30.2; Eosinophils # (A) 0.4 k/uL (0-0.7); Eosinophils % (A) 7 %; HCT 35.1 % (39.0-53.0); HDW 2.75; HGB 11.4 gm/dL (13.0-17.5); Luc # (Auto) 0.15; Luc % (Auto) 3; Lymphocytes # (A) 0.9 k/uL (1.0-4.8); Lymphocytes % (A) 16 %; MCHC 32.6 g/dL (31.0-37.0); MCV 92.2 fL (80.0-100.0); Mean Platelet Volume 8.5; Monocytes # (A) 0.5 k/uL (0-1.0); Monocytes % (A) 9 %; Neutrophils # (A) 3.7 k/uL (1.3-7.7); Neutrophils % (A) 66 %; RDW 14.8 % (11.5-15.5); WBC 5.7 k/uL (3.8-10.6); WBC (Perox) 6.13
[2017-02-08 08:08] LABS: Calcium 8.7 mg/dL (8.4-10.2); Magnesium 1.8 mg/dL (1.6-2.3); Phosphorous 2.9 mg/dL (2.5-4.5); Potassium 3.7 mmol/L (3.5-5.1); Total Bilirubin 0.8 mg/dL (0.2-1.3); Total Protein 5.9 g/dL (6.3-8.2)
[2017-02-08] MEDS: hydrALAZINE HCL 25 MG TAB PO SCH ×3 (08:48→21:24)
[2017-02-08] MEDS: PARoxetine 20 MG TAB PO SCH (08:48)
[2017-02-08] MEDS: INSULIN LISPRO (humaLOG) 300 UNIT/3 ML VIAL SQ SCH ×4 (08:49→20:26)
[2017-02-08] MEDS: amLODIPine 5 MG TAB PO SCH ×2 (08:49→20:26)
[2017-02-08] MEDS: ASPIRIN 81 MG CHEW PO SCH (08:49)
[2017-02-08] MEDS: APIXABAN 2.5 MG TABLET PO SCH ×2 (08:49→20:26)
[2017-02-08] MEDS: SODIUM CHLORIDE 0.9% 1,000 ML IV SCH (08:49)
[2017-02-08] MEDS: CARVEDILOL 3.125 MG TAB PO SCH ×2 (08:49→17:27)
[2017-02-08] MEDS: PANTOPRAZOLE 40 MG TABLET PO SCH (08:49)
[2017-02-08 11:43] LABS: Glucose,Whole Blood 146 mg/dL (75-99)
--- NOTE | 2017-02-08 13:23 | P.PN ---
Subjective Patient is a pleasant 76-year-old male who is being followed by the neurology service for stroke. Patient was found to have altered mental status at home and was brought to [facility] emergency room. Computed tomography scan of the brain was done in the emergency room which showed no acute intracranial abnormalities. CT did show generalized atrophy and small vessel ischemic changes. Carotid Doppler showed no hemodynamically significant stenosis. A CT angios the neck was done which showed no significant stenosis of the neck arteries. MRI of the brain showed multiple acute ischemic strokes which is concerning for embolic phenomenon. Patient had GERALD done and results are noted. Patient was started on Eliquis. Reportedly, patient had increased right-sided weakness yesterday and stat CT was performed. Repeat CT was stable with decreased attenuation right caudate nucleus as well as high left frontal parietal lobe. This is consistent with recent vascular insult. No hemorrhagic transformation noted. At the time of my evaluation, patient is sitting up in bed eating lunch and appears to be in no acute distress. Dysarthria continues but is slightly improved. Objective - Vital Signs Vital signs: Vital Signs Temp 98.4 F 02/08/17 07:00 Pulse 61 02/08/17 07:00 Resp 16 02/08/17 07:00 BP 147/96 02/08/17 07:00 Pulse Ox 93 L 02/08/17 07:00 Intake & Output 02/07/17 02/08/17 02/08/17 18:59 06:59 18:59 Intake Total 1050 1190 Balance 1050 1190 Weight 83 kg Intake: IV 400 600 Sodium Chloride 0.9% 1, 400 600 000 ml @ 100 mls/hr IV . Q10H EDUARDO Rx#:[id number] Intake, IV Titration 50 Amount cefTRIAXone 1,000 mg In 50 Sodium Chloride 0.9% 50 ml @ 100 mls/hr IVPB Q24HR EDUARDO Rx#:[id number] Oral 600 590 Other: Voiding Method Bedpan Bedpan Bedpan Urinal Urinal Urinal Incontinent Incontinent Incontinent # Voids 3 2 - Exam PHYSICAL EXAM: GENERAL APPEARANCE: Patient is a well-developed, male who appears to be in no acute distress. HEENT: Normocephalic, atraumatic, no obvious facial asymmetry is seen. Neck is supple with no masses felt. CARDIOVASCULAR: Regular rate and rhythm. ABDOMEN: Nontender, nondistended. EXTREMITIES: Show no edema or clubbing. NEUROLOGICAL EXAM: Patient is awake, alert, and oriented 2. Patient is unclear what month this is. Speech is dysarthric. Language is normal. Comprehension is intact. Strength is 4-/5 in right upper extremity and 4/5 in right lower extremity. Strength is 5-/5in left upper and lower extremity. Patient has mild right facial droop on cranial nerve testing. Mild sensory deficit to light touch in bilateral lower distal extremities. No tremors or seizure-like activity is noted. - Labs CBC & Chem 7: 02/08/17 07:34 02/08/17 07:32 Labs: Abnormal Lab Results - Last 24 Hours (Table) 02/07/17 02/07/17 02/07/17 Range/Units 15:38 17:11 19:55 RBC (4.30-5.90) m/uL Hgb (13.0-17.5) gm/dL Hct (39.0-53.0) % Plt Count (150-450) k/uL Lymphocytes # (1.0-4.8) k/uL Chloride (98-107) mmol/L Carbon Dioxide (22-30) mmol/L BUN (9-20) mg/dL Creatinine (0.66-1.25) mg/dL Glucose (74-99) mg/dL POC Glucose (mg/dL) 172 H 185 H 205 H (75-99) mg/dL Total Protein (6.3-8.2) g/dL Albumin (3.5-5.0) g/dL 02/08/17 02/08/17 02/08/17 Range/Units 07:32 07:34 07:38 RBC 3.80 L (4.30-5.90) m/uL Hgb 11.4 L (13.0-17.5) gm/dL Hct 35.1 L (39.0-53.0) % Plt Count 118 L (150-450) k/uL Lymphocytes # 0.9 L (1.0-4.8) k/uL Chloride 114 H (98-107) mmol/L Carbon Dioxide 21 L (22-30) mmol/L BUN 32 H (9-20) mg/dL Creatinine 1.65 H (0.66-1.25) mg/dL Glucose 101 H (74-99) mg/dL POC Glucose (mg/dL) 100 H (75-99) mg/dL Total Protein 5.9 L (6.3-8.2) g/dL Albumin 2.8 L (3.5-5.0) g/dL 02/08/17 Range/Units 11:39 RBC (4.30-5.90) m/uL Hgb (13.0-17.5) gm/dL Hct (39.0-53.0) % Plt Count (150-450) k/uL Lymphocytes # (1.0-4.8) k/uL Chloride (98-107) mmol/L Carbon Dioxide (22-30) mmol/L BUN (9-20) mg/dL Creatinine (0.66-1.25) mg/dL Glucose (74-99) mg/dL POC Glucose (mg/dL) 146 H (75-99) mg/dL Total Protein (6.3-8.2) g/dL Albumin (3.5-5.0) g/dL Assessment and Plan Plan: Impression: 1. 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 2. Expressive aphasia 3. Right hemiparesis, improving Recommendations: Patient continues to have expressive aphasia and right hemiparesis. Due to the evidence of multiple acute ischemic strokes, I suspect these are embolic in nature. Patient had transesophageal echocardiogram done and results are reviewed. Cardiology continues to follow the patient. Per cardiology, patient will be started on Eliquis. EEG was ordered and is pending. As you recall, CTA showed no significant stenosis. Carotid Doppler showed no significant stenosis as well. Lipid panel was within normal limits except for low HDL of 39. With history of CVA and diabetes, I recommend statin therapy. Homocystine level was elevated at 20.95 and I will start the patient on Foltx daily. Continue physical therapy and speech therapy. I believe patient would benefit from inpatient rehab following discharge. I will continue to follow with you. Further recommendations to follow. I performed an examination of the patient and discussed the management with the COMMUNICATION SIGNALS INTELLIGENCE. I have reviewed the COMMUNICATION SIGNALS INTELLIGENCE notes and agree with the findings and plan of care.
--- NOTE | 2017-02-08 15:24 | P.PN ---
Subjective Principal diagnosis: acute stroke No issues overnight Objective - Vital Signs Vital signs: Vital Signs Temp 98.4 F 02/08/17 07:00 Pulse 61 02/08/17 07:00 Resp 16 02/08/17 07:00 BP 147/96 02/08/17 07:00 Pulse Ox 93 L 02/08/17 07:00 Intake & Output 02/07/17 02/08/17 02/08/17 18:59 06:59 18:59 Intake Total 1050 1190 Balance 1050 1190 Weight 83 kg Intake: IV 400 600 Sodium Chloride 0.9% 1, 400 600 000 ml @ 100 mls/hr IV . Q10H EDUARDO Rx#:[id number] Intake, IV Titration 50 Amount cefTRIAXone 1,000 mg In 50 Sodium Chloride 0.9% 50 ml @ 100 mls/hr IVPB Q24HR EDUARDO Rx#:[id number] Oral 600 590 Other: Voiding Method Bedpan Bedpan Bedpan Urinal Urinal Urinal Incontinent Incontinent Incontinent # Voids 3 2 - Exam General: The patient is awake and alert, in no distress Eye: there is normal conjunctiva bilaterally. Neck: The neck is supple, there is no JVD. Cardiovascular: Normal S1-S2, no S3-S4, no murmurs. Respiratory: Lungs clear to auscultation bilaterally Gastrointestinal: Abdomen is soft, nontender Musculoskeletal: There is no pedal edema. Neurological:. Expressive aphasia Skin: Skin is warm and dry - Labs CBC & Chem 7: 02/08/17 07:34 02/08/17 07:32 Labs: Abnormal Lab Results - Last 24 Hours (Table) 02/07/17 02/07/17 02/07/17 Range/Units 15:38 17:11 19:55 RBC (4.30-5.90) m/uL Hgb (13.0-17.5) gm/dL Hct (39.0-53.0) % Plt Count (150-450) k/uL Lymphocytes # (1.0-4.8) k/uL Chloride (98-107) mmol/L Carbon Dioxide (22-30) mmol/L BUN (9-20) mg/dL Creatinine (0.66-1.25) mg/dL Glucose (74-99) mg/dL POC Glucose (mg/dL) 172 H 185 H 205 H (75-99) mg/dL Total Protein (6.3-8.2) g/dL Albumin (3.5-5.0) g/dL 02/08/17 02/08/17 02/08/17 Range/Units 07:32 07:34 07:38 RBC 3.80 L (4.30-5.90) m/uL Hgb 11.4 L (13.0-17.5) gm/dL Hct 35.1 L (39.0-53.0) % Plt Count 118 L (150-450) k/uL Lymphocytes # 0.9 L (1.0-4.8) k/uL Chloride 114 H (98-107) mmol/L Carbon Dioxide 21 L (22-30) mmol/L BUN 32 H (9-20) mg/dL Creatinine 1.65 H (0.66-1.25) mg/dL Glucose 101 H (74-99) mg/dL POC Glucose (mg/dL) 100 H (75-99) mg/dL Total Protein 5.9 L (6.3-8.2) g/dL Albumin 2.8 L (3.5-5.0) g/dL 02/08/17 Range/Units 11:39 RBC (4.30-5.90) m/uL Hgb (13.0-17.5) gm/dL Hct (39.0-53.0) % Plt Count (150-450) k/uL Lymphocytes # (1.0-4.8) k/uL Chloride (98-107) mmol/L Carbon Dioxide (22-30) mmol/L BUN (9-20) mg/dL Creatinine (0.66-1.25) mg/dL Glucose (74-99) mg/dL POC Glucose (mg/dL) 146 H (75-99) mg/dL Total Protein (6.3-8.2) g/dL Albumin (3.5-5.0) g/dL Assessment and Plan Plan: 1. multifocal ischemic stroke, with expressive aphasia and right hemiparesis. possibly embolic in origin: seen and evaluated by neurology. MRI showed multiple lesions involving the right caudate nucleus, right basal ganglia, right temporal lobe, right parietal lobe, and posterior left parietal lobe. Patient underwent GERALD showing no obvious source or thrombosis. We discussed this case with cardiology. Given his significant thrombotic event he will be started on anticoagulation and his aspirin dose will be lowered to 81 mg daily. Carotid artery Doppler bilaterally with no significant stenosis. 2. Acute encephalopathy: Most likely toxo metabolic and secondary to multifocal stroke 3. Microscopic hematuria with possible underlying cystitis: I would start the patient on IV ceftriaxone and obtain urine culture. 4. Stage IV chronic kidney disease with baseline creatinine around 2-2.5 5. 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 Coronary artery disease: Managed medically 7. Anemia of chronic disease and iron deficiency anemia 8. Rhabdomyolysis currently on IV fluid hydration. We will continue to monitor closely 9. Troponin elevation: Most likely not thrombotic troponin leak. No acute ischemic changes on 12-lead EKG. No chest pain. Echocardiogram ordered. Cardiology consulted for further evaluation. 10. Type 2 diabetes mellitus: Hold oral agents for now. Started on Lantus 10 units at bedtime. 11. Goals of care: Discussed by me with the patient and his during last office visit. Patient wishes to be DO NOT RESUSCITATE/DO NOT INTUBATE. We will reconfirm with his . 12. GI and DVT prophylaxis Today, I reviewed his medication list and lab work results. We will continue current regimen. Appreciate business systems consultant's recommendations. Continue supportive care. Repeat lab work in the morning. Awaiting PT/OT evaluation. Patient would benefit from rehab and speech therapy.
[2017-02-08 17:19] LABS: Glucose,Whole Blood 246 mg/dL (75-99)
[2017-02-08 20:15] LABS: Glucose,Whole Blood 295 mg/dL (75-99)
[2017-02-08] MEDS: INSULIN GLARGINE 100 UNIT/ML 10 ML VIAL SQ SCH (20:26)
[2017-02-09 07:09] LABS: Basophils % (A) 1 %; CH 29.7; CHCM 32.6; Eosinophils # (A) 0.3 k/uL (0-0.7); Eosinophils % (A) 4 %; HCT 33.6 % (39.0-53.0); HDW 2.75; HGB 11.1 gm/dL (13.0-17.5); Luc # (Auto) 0.15; Luc % (Auto) 2; Lymphocytes # (A) 0.8 k/uL (1.0-4.8); Lymphocytes % (A) 12 %; MCH 30.1 pg (25.0-35.0); MCHC 32.9 g/dL (31.0-37.0); MCV 91.5 fL (80.0-100.0); Mean Platelet Volume 7.9; Monocytes # (A) 0.5 k/uL (0-1.0); Monocytes % (A) 8 %; Neutrophils # (A) 4.6 k/uL (1.3-7.7); Neutrophils % (A) 72 %; RBC 3.68 m/uL (4.30-5.90); RDW 14.8 % (11.5-15.5); WBC 6.3 k/uL (3.8-10.6); WBC (Perox) 6.38
[2017-02-09 07:27] LABS: Calcium 8.8 mg/dL (8.4-10.2); Magnesium 1.8 mg/dL (1.6-2.3); Phosphorous 3.4 mg/dL (2.5-4.5); Potassium 3.7 mmol/L (3.5-5.1); Total Bilirubin 0.7 mg/dL (0.2-1.3); Total Protein 5.8 g/dL (6.3-8.2)
[2017-02-09 07:34] LABS: Glucose,Whole Blood 170 mg/dL (75-99)
[2017-02-09] MEDS: INSULIN LISPRO (humaLOG) 300 UNIT/3 ML VIAL SQ SCH ×4 (07:51→20:17)
[2017-02-09] MEDS: PANTOPRAZOLE 40 MG TABLET PO SCH (07:51)
[2017-02-09] MEDS: PARoxetine 20 MG TAB PO SCH (07:51)
[2017-02-09] MEDS: CARVEDILOL 3.125 MG TAB PO SCH ×2 (07:51→17:49)
[2017-02-09] MEDS: amLODIPine 5 MG TAB PO SCH ×2 (07:51→20:17)
[2017-02-09] MEDS: hydrALAZINE HCL 25 MG TAB PO SCH ×3 (07:51→22:38)
[2017-02-09] MEDS: APIXABAN 2.5 MG TABLET PO SCH ×2 (07:52→20:17)
[2017-02-09] MEDS: ASPIRIN 81 MG CHEW PO SCH (07:52)
[2017-02-09 11:19] LABS: Glucose,Whole Blood 237 mg/dL (75-99)
[2017-02-09] MEDS: CYANOCOBALAMIN-FA-PYRIDOXINE 1 EACH TAB PO SCH (12:34)
--- NOTE | 2017-02-09 12:38 | P.PN ---
Subjective Patient is a pleasant 76-year-old male who is being followed by the neurology service for stroke. Patient was found to have altered mental status at home and was brought to [facility] emergency room. Computed tomography scan of the brain was done in the emergency room which showed no acute intracranial abnormalities. CT did show generalized atrophy and small vessel ischemic changes. Carotid Doppler showed no hemodynamically significant stenosis. A CT angios the neck was done which showed no significant stenosis of the neck arteries. MRI of the brain showed multiple acute ischemic strokes which is concerning for embolic phenomenon. Patient had GERALD done and results are noted. Patient was started on Eliquis. Reportedly, patient had increased right-sided weakness yesterday and stat CT was performed. Repeat CT was stable with decreased attenuation right caudate nucleus as well as high left frontal parietal lobe. This is consistent with recent vascular insult. No hemorrhagic transformation noted. At the time of my evaluation, patient is resting comfortably in bed and appears to be in no acute distress. Dysarthria continues but is slightly improved. Objective - Vital Signs Vital signs: Vital Signs Temp 97.9 F 02/09/17 07:00 Pulse 57 L 02/09/17 07:00 Resp 18 02/09/17 07:00 BP 173/77 02/09/17 07:00 Pulse Ox 95 02/09/17 08:42 Intake & Output 02/08/17 02/09/17 02/09/17 18:59 06:59 18:59 Intake Total 720 540 Balance 720 540 Intake: Oral 720 540 Other: Voiding Method Bedpan Bedpan Bedpan Urinal Urinal Urinal Incontinent Incontinent Incontinent # Voids 1 1 - Exam PHYSICAL EXAM: GENERAL APPEARANCE: Patient is a well-developed, male who appears to be in no acute distress. HEENT: Normocephalic, atraumatic, no obvious facial asymmetry is seen. Neck is supple with no masses felt. CARDIOVASCULAR: Regular rate and rhythm. ABDOMEN: Nontender, nondistended. EXTREMITIES: Show no edema or clubbing. NEUROLOGICAL EXAM: Patient is awake, alert, and oriented 2. Patient is unclear what year this is. Speech is dysarthric. Language is normal. Comprehension is intact. Strength is 4-/5 in right upper extremity and 4/5 in right lower extremity. Strength is 5-/5in left upper and lower extremity. Patient has mild right facial droop on cranial nerve testing. Mild sensory deficit to light touch in bilateral lower distal extremities. No tremors or seizure-like activity is noted. - Labs CBC & Chem 7: 02/09/17 06:40 02/09/17 06:40 Labs: Abnormal Lab Results - Last 24 Hours (Table) 02/08/17 02/08/17 02/09/17 Range/Units 17:17 20:13 06:40 RBC 3.68 L (4.30-5.90) m/uL Hgb 11.1 L (13.0-17.5) gm/dL Hct 33.6 L (39.0-53.0) % Plt Count 134 L (150-450) k/uL Lymphocytes # 0.8 L (1.0-4.8) k/uL Chloride (98-107) mmol/L Carbon Dioxide (22-30) mmol/L BUN (9-20) mg/dL Creatinine (0.66-1.25) mg/dL Glucose (74-99) mg/dL POC Glucose (mg/dL) 246 H 295 H (75-99) mg/dL Total Protein (6.3-8.2) g/dL Albumin (3.5-5.0) g/dL 02/09/17 02/09/17 02/09/17 Range/Units 06:40 07:21 11:17 RBC (4.30-5.90) m/uL Hgb (13.0-17.5) gm/dL Hct (39.0-53.0) % Plt Count (150-450) k/uL Lymphocytes # (1.0-4.8) k/uL Chloride 112 H (98-107) mmol/L Carbon Dioxide 20 L (22-30) mmol/L BUN 33 H (9-20) mg/dL Creatinine 1.77 H (0.66-1.25) mg/dL Glucose 171 H (74-99) mg/dL POC Glucose (mg/dL) 170 H 237 H (75-99) mg/dL Total Protein 5.8 L (6.3-8.2) g/dL Albumin 2.8 L (3.5-5.0) g/dL Assessment and Plan Plan: Impression: 1. Multiple ischemic strokes, embolic in etiology. 2. Expressive aphasia 3. Right hemiparesis, improving Recommendations: Patient continues to have expressive aphasia and right hemiparesis. Due to the evidence of multiple acute ischemic strokes, I suspect these are embolic in nature. Patient had transesophageal echocardiogram done and results are reviewed. Cardiology continues to follow the patient. Patient was started on Eliquis and will be continued on aspirin 81 mg. EEG was ordered and is pending. As you recall, CTA showed no significant stenosis. Carotid Doppler showed no significant stenosis as well. Lipid panel was within normal limits except for low HDL of 39. With history of CVA and diabetes, I recommend statin therapy. Homocystine level was elevated at 20.95 and I will start the patient on Foltx daily. Continue physical therapy and speech therapy. I believe patient would benefit from inpatient rehab following discharge. Patient is stable for discharge from neurology standpoint. I will continue to follow with you. Further recommendations to follow. I performed an examination of the patient and discussed the management with the E BUSINESS MANAGER. I have reviewed the E BUSINESS MANAGER notes and agree with the findings and plan of care.
--- NOTE | 2017-02-09 12:55 | P.PN ---
Subjective Patient is resting comfortably. No issues overnight. Objective - Vital Signs Vital signs: Vital Signs Temp 97.9 F 02/09/17 07:00 Pulse 57 L 02/09/17 07:00 Resp 18 02/09/17 07:00 BP 173/77 02/09/17 07:00 Pulse Ox 95 02/09/17 08:42 Intake & Output 02/08/17 02/09/17 02/09/17 18:59 06:59 18:59 Intake Total 720 540 Balance 720 540 Intake: Oral 720 540 Other: Voiding Method Bedpan Bedpan Bedpan Urinal Urinal Urinal Incontinent Incontinent Incontinent # Voids 1 1 - Exam General: The patient is awake and alert, in no distress Eye: there is normal conjunctiva bilaterally. Neck: The neck is supple, there is no JVD. Cardiovascular: Normal S1-S2, no S3-S4, no murmurs. Respiratory: Lungs clear to auscultation bilaterally Gastrointestinal: Abdomen is soft, nontender Musculoskeletal: There is no pedal edema. Neurological:. Expressive aphasia Skin: Skin is warm and dry - Labs CBC & Chem 7: 02/09/17 06:40 02/09/17 06:40 Labs: Abnormal Lab Results - Last 24 Hours (Table) 02/08/17 02/08/17 02/09/17 Range/Units 17:17 20:13 06:40 RBC 3.68 L (4.30-5.90) m/uL Hgb 11.1 L (13.0-17.5) gm/dL Hct 33.6 L (39.0-53.0) % Plt Count 134 L (150-450) k/uL Lymphocytes # 0.8 L (1.0-4.8) k/uL Chloride (98-107) mmol/L Carbon Dioxide (22-30) mmol/L BUN (9-20) mg/dL Creatinine (0.66-1.25) mg/dL Glucose (74-99) mg/dL POC Glucose (mg/dL) 246 H 295 H (75-99) mg/dL Total Protein (6.3-8.2) g/dL Albumin (3.5-5.0) g/dL 02/09/17 02/09/17 02/09/17 Range/Units 06:40 07:21 11:17 RBC (4.30-5.90) m/uL Hgb (13.0-17.5) gm/dL Hct (39.0-53.0) % Plt Count (150-450) k/uL Lymphocytes # (1.0-4.8) k/uL Chloride 112 H (98-107) mmol/L Carbon Dioxide 20 L (22-30) mmol/L BUN 33 H (9-20) mg/dL Creatinine 1.77 H (0.66-1.25) mg/dL Glucose 171 H (74-99) mg/dL POC Glucose (mg/dL) 170 H 237 H (75-99) mg/dL Total Protein 5.8 L (6.3-8.2) g/dL Albumin 2.8 L (3.5-5.0) g/dL Assessment and Plan Plan: 1. multifocal ischemic stroke, with expressive aphasia and right hemiparesis. possibly embolic in origin: seen and evaluated by neurology. MRI showed multiple lesions involving the right caudate nucleus, right basal ganglia, right temporal lobe, right parietal lobe, and posterior left parietal lobe. Patient underwent GERALD showing no obvious source or thrombosis. We discussed this case with cardiology. Given his significant thrombotic event he will be started on anticoagulation and his aspirin dose will be lowered to 81 mg daily. Carotid artery Doppler bilaterally with no significant stenosis. 2. Acute encephalopathy: Most likely toxo metabolic and secondary to multifocal stroke 3. Microscopic hematuria with possible underlying cystitis: I would start the patient on IV ceftriaxone and obtain urine culture. 4. Stage IV chronic kidney disease with baseline creatinine around 2-2.5 5. 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 Coronary artery disease: Managed medically 7. Anemia of chronic disease and iron deficiency anemia 8. Rhabdomyolysis currently on IV fluid hydration. We will continue to monitor closely 9. Troponin elevation: Most likely not thrombotic troponin leak. No acute ischemic changes on 12-lead EKG. No chest pain. Echocardiogram ordered. Cardiology consulted for further evaluation. 10. Type 2 diabetes mellitus: Hold oral agents for now. Started on Lantus 10 units at bedtime. 11. Goals of care: Discussed by me with the patient and his during last office visit. Patient wishes to be DO NOT RESUSCITATE/DO NOT INTUBATE. We will reconfirm with his . 12. GI and DVT prophylaxis Today, I reviewed his medication list and lab work results. We will continue current regimen. Appreciate [employer] enterprise portal consultant's recommendations. Continue supportive care. Repeat lab work in the morning. Awaiting PT/OT evaluation. Patient would benefit from rehab and speech therapy.
[2017-02-09 17:24] LABS: Glucose,Whole Blood 273 mg/dL (75-99)
[2017-02-09] MEDS: glipiZIDE 5 MG TAB PO SCH (17:49)
[2017-02-09 20:16] LABS: Glucose,Whole Blood 240 mg/dL (75-99)
[2017-02-09] MEDS ORDERED: INSULIN GLARGINE 100 UNIT/ML 10 ML VIAL SQ SCH (21:00)
--- NOTE | 2017-02-10 07:03 | P.CONS ---
History of Present Illness - Chief Complaint Gait disturbance - History of Present Illness I had the opportunity to see patient for inpatient rehab consultation with regard to gait disturbance. He was admitted to [facility] February 03 with acute onset states disturbance. He is a poor historian. Brain MRI demonstrated multiple foci. Head CT with stable right caudate nucleus and left superior frontal attenuation. Carotid Doppler with moderate plaques. Speech therapy reports moderate to severe global a aphasia. OT reports total assistance for bathing dressing and toileting. Mobility on assess. PT prescribed. Previous functional history: Unobtainable from patient. Review of Systems Review of systems: Review elicited from chart and my exam of patient. ENT: Denies sneezes or discharge. Eyes: Denies discharge or photophobia. Cardiac: Denies chest pain or palpitation. Pulmonary: Denies cough or shortness of breath. Gastrointestinal: Denies nausea, emesis, constipation, diarrhea. Genitourinary: Denies discharge or frequency. Musculoskeletal: Denies muscle or bone aches. Neurologic: Generalized confusion and a aphasia. Endocrine: Denies shakes or sweats. Oncology: Denies cancers. Dermatologic: Denies rash, itching, pruritus. ALLERGY/immunology: Denies sneezes, rashes. Past Medical History Past Medical History: Coronary Artery Disease (CAD), Heart Failure, CVA/TIA, Diabetes Mellitus, GI Bleed, Hypertension, Liver Disease, Myocardial Infarction (NE), Renal Disease Additional Past Medical History / Comment(s): HX OF CARDIAC ARREST WITH CENTRAL LOBE BRAIN DAMAGE. , HX OF CIRRHOSIS, HX OF ESOPHAGEAL VARICIES, HX OF TORN LEFT CALF MUSCLE 2 YEARS AGO WITH WOUND (2012), USES WALKER ., INPATIENT AUG 2015 FOR LOW HGB AND RECEIVED BLOOD TRANSFUSIONS. Last Myocardial Infarction Date:: 10/1994 History of Any Multi-Drug Resistant Organisms: MRSA Year Discovered:: 2012 MDRO Source:: leg, foot, lungs Past Surgical History: Coronary Bypass/CABG, Heart Catheterization With Stent, Hernia Repair, Orthopedic Surgery Additional Past Surgical History / Comment(s): quad bypass, bilateral carotids, SURG LEFT LEG WOUND., EGD AUG 2015 Past Anesthesia/Blood Transfusion Reactions: No Reported Reaction Additional Past Anesthesia/Blood Transfusion Reaction / Comm: HX OF BLOOD TRANSFUSIONS-NO PROBLEMS. Date of Last Stent Placement:: unk Past Psychological History: Anxiety, Depression Smoking Status: Former smoker Past Alcohol Use History: Rare Additional Past Alcohol Use History / Comment(s): HX OF HEAVY ALCOHOL USE. QUIT AUG 2013. SMOKED A PIPE. QUIT SMOKING 1989. Past Drug Use History: None Reported - Past Family History Mother Family Medical History: Myocardial Infarction ([place]) Additional Family Medical History / Comment(s): x7 mi's Father Family Medical History: Diabetes Mellitus Additional Family Medical History / Comment(s): amp lower extremity Medications and Allergies Home Medications and Allergies Comment(s): Skin: Good color, texture, turgor. General: Medium build and comfortable appearance. Head: Normocephalic, atraumatic. Eyes: Symmetric. Pupils equal round. Ears: Symmetric. Hearing within normal limits. Mouth: Clear. Neck: Supple. Carotid without bruit. Cardiac: Regular rate and rhythm. Lungs: Clear anteriorly and posteriorly. Abdomen: Soft active nontender. Extremities: Normal tone. Neurological: Mental status: Pleasantly confused. Cranial nerves: Symmetric facial tone and trapezius. Motor: Active movement all 4 limbs. Sensation: Intact throughout. DTRs: Symmetric and equal throughout. Mobility: Poor coordination with bed mobility. Home Medications Medication Instructions Recorded Confirmed Type Carvedilol [Coreg] 6.25 mg PO BID 02/03/17 02/03/17 History PARoxetine [Paxil] 20 mg PO DAILY 02/03/17 02/03/17 History glipiZIDE XL [Glucotrol Xl] 5 mg PO DAILY 02/03/17 02/03/17 History Allergies Allergy/AdvReac Type Severity Reaction Status Date / Time donepezil HCl [From Aricept] Allergy Unknown Verified 02/03/17 17:17 sertraline HCl [From Zoloft] Allergy Unknown Verified 02/03/17 17:17 simvastatin [From Zocor] Allergy Unknown Verified 02/03/17 17:17 Physical Exam Vitals: Vital Signs Temp Pulse Resp BP Pulse Ox 02/10/17 00:00 79 16 02/09/17 21:57 98.5 F 79 16 134/82 93 L 02/09/17 15:00 97.5 F L 69 18 139/80 98 02/09/17 08:42 95 02/09/17 07:00 97.9 F 57 L 18 173/77 95 Intake and Output 02/09/17 02/09/17 02/10/17 14:59 22:59 06:59 Intake Total 710 590 Balance 710 590 Intake: Oral 710 590 Other: Voiding Method Bedpan Bedpan Urinal Urinal Urinal Diaper Incontinent Incontinent Incontinent # Voids 2 2 3 # Bowel Movements 1 1 Results CBC & Chem 7: 02/09/17 06:40 02/09/17 06:40 Labs: Abnormal Lab Results - Last 24 Hours (Table) 02/09/17 02/09/17 02/09/17 Range/Units 06:40 06:40 07:21 RBC 3.68 L (4.30-5.90) m/uL Hgb 11.1 L (13.0-17.5) gm/dL Hct 33.6 L (39.0-53.0) % Plt Count 134 L (150-450) k/uL Lymphocytes # 0.8 L (1.0-4.8) k/uL Chloride 112 H (98-107) mmol/L Carbon Dioxide 20 L (22-30) mmol/L BUN 33 H (9-20) mg/dL Creatinine 1.77 H (0.66-1.25) mg/dL Glucose 171 H (74-99) mg/dL POC Glucose (mg/dL) 170 H (75-99) mg/dL Total Protein 5.8 L (6.3-8.2) g/dL Albumin 2.8 L (3.5-5.0) g/dL 02/09/17 02/09/17 02/09/17 Range/Units 11:17 17:21 20:14 RBC (4.30-5.90) m/uL Hgb (13.0-17.5) gm/dL Hct (39.0-53.0) % Plt Count (150-450) k/uL Lymphocytes # (1.0-4.8) k/uL Chloride (98-107) mmol/L Carbon Dioxide (22-30) mmol/L BUN (9-20) mg/dL Creatinine (0.66-1.25) mg/dL Glucose (74-99) mg/dL POC Glucose (mg/dL) 237 H 273 H 240 H (75-99) mg/dL Total Protein (6.3-8.2) g/dL Albumin (3.5-5.0) g/dL CT Scan - head: report reviewed (Stable attenuation right caudate nucleus and superior left frontal area.) MRI - head: report reviewed (Multiple attenuation foci noted.) Assessment and Plan (1) CVA (cerebral vascular accident) Status: Acute Plan: Impression: 1. Gait disturbance. 2. Stroke of right caudate nucleus and left frontal area. 3. Metabolic encephalopathy. 4. History of stroke. 5. Cardiac disease with History of NE. 6. Hypertension. 7. Liver disease. 8. Diabetes. Comments and plan: At this time PT, OT, FLIGHT OPERATIONS MANAGER ordered an ongoing. Rehab prognosis however guarded. Currently would require 24/7 multiple person care and thus recommending subacute rehab placement.
[2017-02-10 07:29] LABS: Glucose,Whole Blood 94 mg/dL (75-99)
[2017-02-10] MEDS: CARVEDILOL 3.125 MG TAB PO SCH (07:31)
[2017-02-10] MEDS: hydrALAZINE HCL 25 MG TAB PO SCH (07:32)
[2017-02-10] MEDS: glipiZIDE 5 MG TAB PO SCH (07:32)
[2017-02-10] MEDS: amLODIPine 5 MG TAB PO SCH (07:32)
[2017-02-10] MEDS: INSULIN LISPRO (humaLOG) 300 UNIT/3 ML VIAL SQ SCH ×2 (07:32→12:54)
[2017-02-10] MEDS: PARoxetine 20 MG TAB PO SCH (07:32)
[2017-02-10] MEDS: PANTOPRAZOLE 40 MG TABLET PO SCH (07:32)
[2017-02-10] MEDS: APIXABAN 2.5 MG TABLET PO SCH (07:33)
[2017-02-10] MEDS: ASPIRIN 81 MG CHEW PO SCH (07:33)
[2017-02-10 08:47] VITALS: BP 166/76; PULSE 64; RESP 18; TEMP 98.4
--- NOTE | 2017-02-10 11:21 | P.DS ---
Providers Date of admission: 02/03/17 21:24 Expected date of discharge: 02/10/17 Attending physician: Rosalva Mcguire Consults: 02/04/17 09:46 Consult Physician Routine Consulting Provider: Selena Rizo Consult Reason/Comments: high Trop Do you want consulting provider notified?: Yes 02/06/17 11:27 Consult Physician Routine Consulting Provider: Mike Agustin Consult Reason/Comments: Physical debility. Do you want consulting provider notified?: Yes Primary care physician: [facility] Course: 1. multifocal ischemic stroke, with expressive aphasia and right hemiparesis. possibly embolic in origin: seen and evaluated by neurology. MRI showed multiple lesions involving the right caudate nucleus, right basal ganglia, right temporal lobe, right parietal lobe, and posterior left parietal lobe. Patient underwent GERALD showing no obvious source or thrombosis. We discussed this case with cardiology. Given his significant thrombotic event he will be started on anticoagulation and his aspirin dose will be lowered to 81 mg daily. Carotid artery Doppler bilaterally with no significant stenosis. 2. Acute encephalopathy: Most likely toxo metabolic and secondary to multifocal stroke 3. Microscopic hematuria with possible underlying cystitis: I would start the patient on IV ceftriaxone and obtain urine culture. 4. Stage IV chronic kidney disease with baseline creatinine around 2-2.5 5. 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 Coronary artery disease: Managed medically 7. Anemia of chronic disease and iron deficiency anemia 8. Rhabdomyolysis on presentation 9. Troponin elevation: Most likely not thrombotic troponin leak. No acute ischemic changes on 12-lead EKG. No chest pain. Seen and evaluated by cardiology. 10. Type 2 diabetes mellitus: Started on Lantus 10 units at bedtime. 11. Goals of care: Discussed by me with the patient and his during last office visit. Patient wishes to be DO NOT RESUSCITATE/DO NOT INTUBATE. We will reconfirm with his . Patient Condition at Discharge: Undetermined Plan - Discharge Summary New Discharge Prescriptions: amLODIPine [Norvasc] 5 mg PO DAILY #30 tab Discharge Medication List PARoxetine [Paxil] 20 mg PO DAILY 02/03/17 [History] glipiZIDE XL [Glucotrol XL] 5 mg PO DAILY 02/03/17 [History] Apixaban [Eliquis] 2.5 mg PO BID tablet 02/10/17 [Rx] Aspirin 81 mg PO DAILY chew 02/10/17 [Rx] Carvedilol [Coreg] 3.125 mg PO BID-W/MEALS tab 02/10/17 [Rx] Insulin Glargine [Lantus] 15 unit SQ HS vial 02/10/17 [Rx] amLODIPine [Norvasc] 5 mg PO DAILY #30 tab 02/10/17 [Rx] hydrALAZINE HCL [Apresoline] 25 mg PO TID tab 02/10/17 [Rx] Follow up Appointment(s)/Referral(s): Rosalva Mcguire MD [Primary Care Provider] - 1-2 days Discharge Disposition: TRANSFER TO SNF/ECF
[2017-02-10 11:28] LABS: Glucose,Whole Blood 147 mg/dL (75-99)
[2017-02-10] MEDS: CYANOCOBALAMIN-FA-PYRIDOXINE 1 EACH TAB PO SCH (12:53)
== END 2017-02-10 14:45 | DRG 64 ==
LOC: EC 16:39 → 6ICU 21:24 → 5MS5E 02-05 14:01
PROVIDERS: ADMIT Internal Medicine; ATTEND Internal Medicine
DX: I63.40 Cerebral infarction due to embolism of unspecified cerebral artery (principal); G93.41 Metabolic encephalopathy; N18.4 Chronic kidney disease, stage 4 (severe); D69.6 Thrombocytopenia, unspecified; M62.82 Rhabdomyolysis; E11.22 Type 2 diabetes mellitus with diabetic chronic kidney disease; I13.0 Hypertensive heart and chronic kidney disease with heart failure and stage 1 through stage 4 chronic kidney disease, or unspecified chronic kidney disease; I50.9 Heart failure, unspecified; G81.91 Hemiplegia, unspecified affecting right dominant side; Q21.1 Atrial septal defect; E86.0 Dehydration; I48.0 Paroxysmal atrial fibrillation; K70.30 Alcoholic cirrhosis of liver without ascites; F32.9 Major depressive disorder, single episode, unspecified; D50.9 Iron deficiency anemia, unspecified; D63.8 Anemia in other chronic diseases classified elsewhere; F41.9 Anxiety disorder, unspecified; I25.10 Atherosclerotic heart disease of native coronary artery without angina pectoris; R74.8 Abnormal levels of other serum enzymes; I25.2 Old myocardial infarction; I35.8 Other nonrheumatic aortic valve disorders; N30.91 Cystitis, unspecified with hematuria; R29.6 Repeated falls; R47.01 Aphasia; R47.02 Dysphasia; S51.812A Laceration without foreign body of left forearm, initial encounter; Z79.4 Long term (current) use of insulin; Z79.84 Long term (current) use of oral hypoglycemic drugs; Z79.899 Other long term (current) drug therapy; Z82.49 Family history of ischemic heart disease and other diseases of the circulatory system; Z83.3 Family history of diabetes mellitus; Z86.74 Personal history of sudden cardiac arrest; Z87.891 Personal history of nicotine dependence; Z95.1 Presence of aortocoronary bypass graft
CPT/HCPCS: 36415; 70450; 70496; 70498; 70551; 71020; 80048; 80053; 80061; 80306; 81001; 82009; 82140; 82550; 82553; 83036; 83090; 83605; 83735; 84100; 84484; 85025; 85027; 85610; 85730; 93005; 93306; 93312; 93320; 93325; 93880; 94760; 96360; 96361; 99285

== ENCOUNTER 2017-02-28 14:09 | Inpatient (IN) | payer MEDICARE, BC ==
--- NOTE | 2017-02-28 14:25 | ED ---
General Adult HPI - General Stated complaint: Abnormal Labs Time Seen by Provider: 02/28/17 14:10 Source: RN notes reviewed - History of Present Illness Initial comments: This is a 76-year-old male who presents emergency Department from a long-term because his hemoglobin was 5.7. Patient is unable give us any history. Patient states he feels fine. residential and called previously to tell us his hemoglobin was low and initially the did not want to intervene but today she decided to change her mind and wants to the patient to get a blood transfusion. There was no report of any difficult breathing or shortness of breath was no report of any pain the patient was having and the patient appeared at his neurologic baseline according to the staff. Currently there is no family with the patient said no further history can be obtained. - Related Data Home Medications Medication Instructions Recorded Confirmed PARoxetine [Paxil] 20 mg PO DAILY 02/03/17 02/28/17 glipiZIDE XL [Glucotrol XL] 5 mg PO AC-SUPPER 02/03/17 02/28/17 Apixaban [Eliquis] 2.5 mg PO BID@0800,1600 02/28/17 02/28/17 Insulin Glargine [Lantus] 15 unit SQ DAILY@199902/28/17 02/28/17 hydrALAZINE HCL [Apresoline] 25 mg PO TID@0800,1300,199902/28/17 02/28/17 Previous Rx's Medication Instructions Recorded Aspirin 81 mg PO DAILY chew 02/10/17 Carvedilol [Coreg] 3.125 mg PO BID-W/MEALS tab 02/10/17 amLODIPine [Norvasc] 5 mg PO DAILY #30 tab 02/10/17 Allergies Allergy/AdvReac Type Severity Reaction Status Date / Time donepezil HCl [From Aricept] Allergy Unknown Verified 02/28/17 14:42 sertraline HCl [From Zoloft] Allergy Unknown Verified 02/28/17 14:42 simvastatin [From Zocor] Allergy Unknown Verified 02/28/17 14:42 Review of Systems ROS Statement: Those systems with pertinent positive or pertinent negative responses have been documented in the HPI. ROS Other: All systems not noted in ROS Statement are negative. Past Medical History Past Medical History: Coronary Artery Disease (CAD), Heart Failure, CVA/TIA, Diabetes Mellitus, GI Bleed, Hypertension, Liver Disease, Myocardial Infarction ([place]), Renal Disease Additional Past Medical History / Comment(s): HX OF CARDIAC ARREST WITH CENTRAL LOBE BRAIN DAMAGE. , HX OF CIRRHOSIS, HX OF ESOPHAGEAL VARICIES, HX OF TORN LEFT CALF MUSCLE 2 YEARS AGO WITH WOUND (2012), USES WALKER ., INPATIENT AUG 2015 FOR LOW HGB AND RECEIVED BLOOD TRANSFUSIONS. Last Myocardial Infarction Date:: 10/1994 History of Any Multi-Drug Resistant Organisms: MRSA Date of last positivie culture/infection: 2012 MDRO Source:: leg, foot, lungs Past Surgical History: Coronary Bypass/CABG, Heart Catheterization With Stent, Hernia Repair, Orthopedic Surgery Additional Past Surgical History / Comment(s): quad bypass, bilateral carotids, SURG LEFT LEG WOUND., EGD AUG 2015 Past Anesthesia/Blood Transfusion Reactions: No Reported Reaction Additional Past Anesthesia/Blood Transfusion Reaction / Comment(s): HX OF BLOOD TRANSFUSIONS-NO PROBLEMS. Date of Last Stent Placement:: unk Past Psychological History: Anxiety, Depression Smoking Status: Former smoker Past Alcohol Use History: Rare Additional Past Alcohol Use History / Comment(s): HX OF HEAVY ALCOHOL USE. QUIT AUG 2013. SMOKED A PIPE. QUIT SMOKING 1989. Past Drug Use History: None Reported - Past Family History Mother Family Medical History: Myocardial Infarction ([place]) Additional Family Medical History / Comment(s): x7 mi's Father Family Medical History: Diabetes Mellitus Additional Family Medical History / Comment(s): amp lower extremity General Exam - General Exam Comments Initial Comments: GENERAL: Patient is well-developed and well-nourished. Patient is nontoxic and well- hydrated and is in no acute distress. ENT: Neck is soft and supple. No significant lymphadenopathy is noted. Oropharynx is clear. Moist mucous membranes. Neck has full range of motion without eliciting any pain. EYES: The sclera were anicteric and conjunctiva were pink and moist. Extraocular movements were intact and pupils were equal round and reactive to light. Eyelids were unremarkable. PULMONARY: Unlabored respirations. Good breath sounds bilaterally. No audible rales rhonchi or wheezing was noted. CARDIOVASCULAR: There is a regular rate and rhythm without any murmurs gallops or rubs. ABDOMEN: Soft and nontender with normal bowel sounds. No palpable organomegaly was noted. There is no palpable pulsatile mass. SKIN: Patient's skin is pale and his nailbeds extremity pale Refill cannot be done NEUROLOGIC: Patient is alert and oriented 1. Cranial nerves II through XII are grossly intact. Motor and sensory are also intact. Normal speech, volume and content. Symmetrical smile. MUSCULOSKELETAL: Normal extremities with adequate strength and full range of motion. LYMPHATICS: No significant lymphadenopathy is noted PSYCHIATRIC: Unable to assess secondary to patient's dementia Course Vital Signs 02/28/17 02/28/17 14:13 15:16 Temperature 97.8 F Pulse Rate 86 68 Respiratory 18 Rate Blood Pressure 150/71 135/61 O2 Sat by Pulse 98 Oximetry Medical Decision Making - Medical Decision Making EKG shows sinus rhythm at 86 bpm WA interval 190 QRS is under QT intervals 42 QTC is 481. Patient's EKG shows no significant ST segment elevation or depression. Patient's guaiac positive and I'm giving him 2 units of packed red blood cells in the emergency department. I spoke with Dr. Motley and I admitted the patient. - Lab Data Result diagrams: 02/28/17 14:25 02/28/17 14:25 Lab Results 02/28/17 02/28/17 02/28/17 Range/Units 14:25 14:25 14:25 WBC 6.2 (3.8-10.6) k/uL RBC 1.94 L (4.30-5.90) m/uL Hgb 5.7 L* (13.0-17.5) gm/dL Hct 17.6 L* (39.0-53.0) % MCV 90.4 (80.0-100.0) fL MCH 29.4 (25.0-35.0) pg MCHC 32.5 (31.0-37.0) g/dL RDW 14.7 (11.5-15.5) % Plt Count 214 (150-450) k/uL Neutrophils % 72 % Lymphocytes % 13 % Monocytes % 8 % Eosinophils % 3 % Basophils % 1 % Neutrophils # 4.5 (1.3-7.7) k/uL Lymphocytes # 0.8 L (1.0-4.8) k/uL Monocytes # 0.5 (0-1.0) k/uL Eosinophils # 0.2 (0-0.7) k/uL Basophils # 0.0 (0-0.2) k/uL Hypochromasia Marked Poikilocytosis Marked PT (9.0-12.0) sec INR (<1.1) APTT (22.0-30.0) sec Sodium (137-145) mmol/L Potassium (3.5-5.1) mmol/L Chloride (98-107) mmol/L Carbon Dioxide (22-30) mmol/L Anion Gap mmol/L BUN (9-20) mg/dL Creatinine (0.66-1.25) mg/dL Est GFR (MDRD) Af Amer (>60 ml/min/1.73 sqM) Est GFR (MDRD) Non-Af (>60 ml/min/1.73 sqM) Glucose (74-99) mg/dL Calcium (8.4-10.2) mg/dL Total Bilirubin (0.2-1.3) mg/dL AST (17-59) U/L ALT (21-72) U/L Alkaline Phosphatase (38-126) U/L Total Creatine Kinase 113 (55-170) U/L CK-MB (CK-2) 1.2 (0.0-2.4) ng/mL CK-MB (CK-2) Rel Index 1.1 Troponin I <0.012 (0.000-0.034) ng/mL Total Protein (6.3-8.2) g/dL Albumin (3.5-5.0) g/dL Stool Occult Blood Positive (Negative) 02/28/17 02/28/17 Range/Units 14:25 14:25 WBC (3.8-10.6) k/uL RBC (4.30-5.90) m/uL Hgb (13.0-17.5) gm/dL Hct (39.0-53.0) % MCV (80.0-100.0) fL MCH (25.0-35.0) pg MCHC (31.0-37.0) g/dL RDW (11.5-15.5) % Plt Count (150-450) k/uL Neutrophils % % Lymphocytes % % Monocytes % % Eosinophils % % Basophils % % Neutrophils # (1.3-7.7) k/uL Lymphocytes # (1.0-4.8) k/uL Monocytes # (0-1.0) k/uL Eosinophils # (0-0.7) k/uL Basophils # (0-0.2) k/uL Hypochromasia Poikilocytosis PT 11.8 (9.0-12.0) sec INR 1.2 (<1.1) APTT 26.8 (22.0-30.0) sec Sodium 141 (137-145) mmol/L Potassium 4.8 (3.5-5.1) mmol/L Chloride 108 H (98-107) mmol/L Carbon Dioxide 22 (22-30) mmol/L Anion Gap 11 mmol/L BUN 43 H (9-20) mg/dL Creatinine 2.10 H (0.66-1.25) mg/dL Est GFR (MDRD) Af Amer 38 (>60 ml/min/1.73 sqM) Est GFR (MDRD) Non-Af 31 (>60 ml/min/1.73 sqM) Glucose 303 H (74-99) mg/dL Calcium 8.9 (8.4-10.2) mg/dL Total Bilirubin 0.9 (0.2-1.3) mg/dL AST 30 (17-59) U/L ALT 34 (21-72) U/L Alkaline Phosphatase 107 (38-126) U/L Total Creatine Kinase (55-170) U/L CK-MB (CK-2) (0.0-2.4) ng/mL CK-MB (CK-2) Rel Index Troponin I (0.000-0.034) ng/mL Total Protein 6.0 L (6.3-8.2) g/dL Albumin 3.1 L (3.5-5.0) g/dL Stool Occult Blood (Negative) Critical Care Time Critical Care Time: Yes Total Critical Care Time: 35 Disposition Clinical Impression: Anemia, GI bleed Disposition: ADMITTED IP TO THIS [facility] Time of Disposition: 15:22
[2017-02-28 14:51] LABS: Calcium 8.9 mg/dL (8.4-10.2); Potassium 4.8 mmol/L (3.5-5.1); Total Bilirubin 0.9 mg/dL (0.2-1.3)
[2017-02-28 14:57] LABS: Creatine Kinase 113 U/L (55-170)
[2017-02-28 15:02] LABS: Basophils % (A) 1 %; CH 28.6; CHCM 31.8; Eosinophils # (A) 0.2 k/uL (0-0.7); Eosinophils % (A) 3 %; HDW 4.71; Hypochromasia Marked; Luc # (Auto) 0.19; Luc % (Auto) 3; Lymphocytes # (A) 0.8 k/uL (1.0-4.8); Lymphocytes % (A) 13 %; MCH 29.4 pg (25.0-35.0); MCHC 32.5 g/dL (31.0-37.0); MCV 90.4 fL (80.0-100.0); Mean Platelet Volume 8.3; Monocytes # (A) 0.5 k/uL (0-1.0); Monocytes % (A) 8 %; Neutrophils # (A) 4.5 k/uL (1.3-7.7); Neutrophils % (A) 72 %; Poikilocytosis Marked; RBC 1.94 m/uL (4.30-5.90); RDW 14.7 % (11.5-15.5); WBC 6.2 k/uL (3.8-10.6); WBC (Perox) 5.89
[2017-02-28 15:06] LABS: INR 1.2 (<1.1); Partial Thromboplastin Time 26.8 sec (22.0-30.0); Prothrombin Time 11.8 sec (9.0-12.0)
[2017-02-28 15:09] LABS: HGB 5.7 gm/dL (13.0-17.5)
[2017-02-28 15:10] LABS: Creatine Kinase MB 1.2 ng/mL (0.0-2.4); HCT 17.6 % (39.0-53.0); Troponin I <0.012 ng/mL (0.000-0.034)
[2017-02-28] MEDS ORDERED: NALOXONE 0.4 MG/ML 1 ML VIAL IV PRN (15:26)
[2017-02-28 17:25] LABS: Appearance,Urine Clear (Clear); Bilirubin,Urine Negative (Negative); Glucose,Urine (UA) 4+ (Negative); Ketones,Urine Negative (Negative); Leukocyte Esterase,Urine Negative (Negative); Nitrite,Urine Negative (Negative); Protein,Urine Trace (Negative); Specific Gravity,Urine 1.011 (1.001-1.035); UA Billing (MACRO vs. MICRO) CHEM; Urobilinogen,Urine <2.0 mg/dL (<2.0)
[2017-02-28 18:27] LABS: Glucose,Whole Blood 242 mg/dL (75-99)
[2017-02-28] MEDS: INSULIN LISPRO (humaLOG) 300 UNIT/3 ML VIAL SQ SCH ×2 (18:29→23:20)
[2017-02-28] MEDS: SODIUM CHLORIDE 0.9% 1,000 ML IV SCH (18:44)
[2017-02-28] MEDS: PANTOPRAZOLE 40 MG/10 ML VIAL IV SCH (20:15)
[2017-02-28] MEDS: hydrALAZINE HCL 25 MG TAB PO SCH (20:15)
[2017-03-01 00:18] LABS: Basophils % (A) 0 %; CH 28.9; CHCM 32.6; Eosinophils # (A) 0.2 k/uL (0-0.7); Eosinophils % (A) 3 %; HCT 24.1 % (39.0-53.0); Hypochromasia Moderate; Luc # (Auto) 0.18; Luc % (Auto) 2; Lymphocytes # (A) 0.7 k/uL (1.0-4.8); Lymphocytes % (A) 10 %; MCH 28.3 pg (25.0-35.0); MCHC 31.7 g/dL (31.0-37.0); MCV 89.1 fL (80.0-100.0); Mean Platelet Volume 7.7; Monocytes # (A) 0.7 k/uL (0-1.0); Monocytes % (A) 9 %; Neutrophils # (A) 5.8 k/uL (1.3-7.7); Neutrophils % (A) 76 %; Poikilocytosis Moderate; RBC 2.71 m/uL (4.30-5.90); RDW 14.8 % (11.5-15.5); WBC 7.6 k/uL (3.8-10.6)
[2017-03-01 00:33] LABS: HGB 7.7 gm/dL (13.0-17.5)
[2017-03-01 05:22] LABS: Basophils % (A) 0 %; CH 28.7; CHCM 32.7; Eosinophils # (A) 0.4 k/uL (0-0.7); Eosinophils % (A) 4 %; HDW 4.65; HGB 7.6 gm/dL (13.0-17.5); Hypochromasia Moderate; Luc # (Auto) 0.22; Luc % (Auto) 3; Lymphocytes # (A) 0.9 k/uL (1.0-4.8); Lymphocytes % (A) 12 %; MCH 27.9 pg (25.0-35.0); MCHC 31.5 g/dL (31.0-37.0); MCV 88.4 fL (80.0-100.0); Mean Platelet Volume 8.5; Monocytes # (A) 0.6 k/uL (0-1.0); Monocytes % (A) 8 %; Neutrophils # (A) 5.8 k/uL (1.3-7.7); Neutrophils % (A) 73 %; Poikilocytosis Marked; RBC 2.72 m/uL (4.30-5.90); RDW 14.9 % (11.5-15.5); WBC 7.9 k/uL (3.8-10.6); WBC (Perox) 7.98
[2017-03-01 05:32] LABS: Calcium 8.3 mg/dL (8.4-10.2); Phosphorous 3.4 mg/dL (2.5-4.5); Potassium 3.6 mmol/L (3.5-5.1)
[2017-03-01] MEDS ORDERED: Potassium Replacement Protocol 1 EACH MISC MISCELLANE PRN (06:00)
[2017-03-01] MEDS ORDERED: POTASSIUM CHLORIDE ER 20 MEQ TAB.ER PO SCH (06:00)
[2017-03-01] MEDS: INSULIN LISPRO (humaLOG) 300 UNIT/3 ML VIAL SQ SCH ×3 (06:01→17:24)
[2017-03-01] MEDS ORDERED: PANTOPRAZOLE 40 MG/10 ML VIAL IV SCH (09:00)
[2017-03-01] MEDS: hydrALAZINE HCL 25 MG TAB PO SCH ×3 (09:21→20:57)
[2017-03-01] MEDS: SODIUM CHLORIDE 0.9% 1,000 ML IV SCH ×2 (09:21→21:02)
[2017-03-01] MEDS: CARVEDILOL 3.125 MG TAB PO SCH ×2 (09:22→17:24)
[2017-03-01] MEDS: amLODIPine 5 MG TAB PO SCH (09:22)
[2017-03-01] MEDS: PARoxetine 20 MG TAB PO SCH (09:22)
[2017-03-01] MEDS: PANTOPRAZOLE 40 MG/10 ML VIAL IV SCH ×2 (09:22→20:57)
--- NOTE | 2017-03-01 10:48 | CONS ---
DATE OF CONSULTATION: 03/01/2017 REASON FOR CONSULTATION: Severe symptomatic anemia. HISTORY OF PRESENT ILLNESS: The patient is a 76-year-old pleasant white male who is a resident of group home was transferred because of low hemoglobin of 5.7. The patient has multiple medical problems requiring frequent hospitalizations over the last few months for recurrent CVA. The patient apparently has made a NO CODE and the family was considering hospice. However, because of his low hemoglobin he was transferred for blood transfusions and he has been in the intensive care unit since then. There is no history of active bleeding. The patient is somewhat communicative and he says that he denies any abdominal pain. He reports no nausea, vomiting. Denies any rectal bleeding or melena. He did receive 2 units of PRBC transfusion and repeat hemoglobin was 7.6 g/dL. The family is contemplating to discuss hospice care today. Past medical history is significant for hypertension, diabetes mellitus, hyperlipidemia, recurrent strokes, anxiety, depression. MEDICATIONS AT HOME: Paxil, Glucotrol, Eliquis, Lantus, hydralazine, Coreg. Allergies to ARICEPT, ZOLOFT, ZOCOR. PAST ( ) HISTORY: History of cirrhosis with esophageal variceal bleeding in the past, hypertension, hypercholesterolemia, coronary artery disease, recurrent CVA, diabetes mellitus. PAST SURGICAL HISTORY: Coronary artery bypass surgery, bilateral cataract surgery, left leg wound, EGD in August 2015 for esophageal varices. SOCIAL HISTORY: Remote history of smoking and heavy alcohol use in the past, which he quit in 2012. FAMILY HISTORY: Mother had [place] and father had diabetes mellitus. REVIEW OF SYSTEMS: CARDIOPULMONARY: No chest pain or shortness of breath. GENITOURINARY: He denies any symptoms. NEUROLOGY: Mild dementia. PSYCHIATRIC: Unremarkable. ENT/VISION: Unremarkable. CONSTITUTIONAL: No recent weight loss. GI: As mentioned above. On physical examination, he appears comfortable in no apparent distress. Vital signs are stable. Blood pressure 128/57, pulse rate 65, temperature 98.2. HEENT EXAMINATION: Unremarkable. Conjunctivae pink. Sclerae anicteric. Oral cavity, no lesions. NECK: No JVD or lymph node enlargement. Chest was clear to auscultation. HEART: Regular rate and rhythm. ABDOMEN: Soft. It was slightly obese. Bowel sounds are positive. No organomegaly. EXTREMITIES: No pedal edema. SKIN: No rashes. NEURO: Alert and oriented x3. No focal deficits. LABS: Hemoglobin at the time of admission was 5.7, WBC 6.2, platelets of 214. Today, hemoglobin 7.6, WBC 7.9, platelets are normal. BUN is 43, creatinine 2.1, today BUN is 34 and creatinine 1.9. IMPRESSION: 1. Severe symptomatic anemia and Hemoccult-positive stool but clinically no evidence of active ongoing bleeding. He does have history of atrial fibrillation and recurrent cerebrovascular accidents in the past presently maintained on Eliquis. He received 2 units of PRBC transfusion and last hemoglobin 7.6 and stable. 2. Recurrent cerebrovascular accident for which requiring multiple hospitalizations. 3. Hypertension. 4. Atrial fibrillation. 5. Diabetes mellitus. RECOMMENDATIONS: 1. Agree with blood transfusion. 2. Given his overall medical condition, will not plan on any endoscopic intervention at the present time. 3. Regular diet. 4. Will follow up closely during this hospital stay. Thank you for this consultation.
--- NOTE | 2017-03-01 11:00 | P.HPIM ---
History of Present Illness H&P Date: 03/01/17 Chief Complaint: Severe anemia Patient is a 76-year-old male who is currently at [facility] for rehab, who was found to have severe anemia with hemoglobin down to 5.9 initially his was not sure if she wanted to proceed was medical care or to proceed with hospice she decided to proceed with medical care and patient was transferred to [facility] emergency room and was subsequently admitted to intensive care unit. Patient was recently admitted to [facility] after being found on the floor at that time he had mental status changes and had acute renal failure he was [facility]. His hemoglobin on 02/04/2017 was 5.9 Past Medical History Past Medical History: Coronary Artery Disease (CAD), Heart Failure, CVA/TIA, Diabetes Mellitus, GI Bleed, Hypertension, Liver Disease, Myocardial Infarction ([place]), Renal Disease Additional Past Medical History / Comment(s): HX OF CARDIAC ARREST WITH CENTRAL LOBE BRAIN DAMAGE. pt is rt hand dominant-previous admit w/stroke-had aphasia and rt side hemiparesis, HX OF CIRRHOSIS, HX OF ESOPHAGEAL VARICIES, HX OF TORN LEFT CALF MUSCLE 2 YEARS AGO WITH WOUND (2012), USES WALKER ., INPATIENT AUG 2015 FOR LOW HGB AND RECEIVED BLOOD TRANSFUSIONS. Last Myocardial Infarction Date:: 10/1994 History of Any Multi-Drug Resistant Organisms: MRSA Date of last positivie culture/infection: 2012 MDRO Source:: leg, foot, lungs Past Surgical History: Coronary Bypass/CABG, Heart Catheterization With Stent, Hernia Repair, Orthopedic Surgery Additional Past Surgical History / Comment(s): quad bypass, bilateral carotids, SURG LEFT LEG WOUND., EGD AUG 2015 Past Anesthesia/Blood Transfusion Reactions: No Reported Reaction Additional Past Anesthesia/Blood Transfusion Reaction / Comment(s): HX OF BLOOD TRANSFUSIONS-NO PROBLEMS. Date of Last Stent Placement:: unk Past Psychological History: Anxiety, Depression Additional Psychological History / Comment(s): pt is .currently resides at [facility]. 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 they further stated that pt answers mostly yes/no to questions Smoking Status: Former smoker Past Alcohol Use History: Rare Additional Past Alcohol Use History / Comment(s): HX OF HEAVY ALCOHOL USE. QUIT AUG 2013. SMOKED A PIPE. QUIT SMOKING 1989. Past Drug Use History: None Reported - Past Family History Mother Family Medical History: Myocardial Infarction ([place]) Additional Family Medical History / Comment(s): x7 mi's Father Family Medical History: Diabetes Mellitus Additional Family Medical History / Comment(s): amp lower extremity Medications and Allergies Home Medications Medication Instructions Recorded Confirmed Type PARoxetine [Paxil] 20 mg PO DAILY 02/03/17 02/28/17 History glipiZIDE XL [Glucotrol XL] 5 mg PO AC-SUPPER 02/03/17 02/28/17 History Apixaban [Eliquis] 2.5 mg PO BID@0800,1600 02/28/17 02/28/17 History Insulin Glargine [Lantus] 15 unit SQ DAILY@199902/28/17 02/28/17 History hydrALAZINE HCL [Apresoline] 25 mg PO TID@0800,1300,199902/28/17 02/28/17 History Allergies Allergy/AdvReac Type Severity Reaction Status Date / Time donepezil HCl [From Aricept] Allergy Unknown Verified 02/28/17 14:42 sertraline HCl [From Zoloft] Allergy Unknown Verified 02/28/17 14:42 simvastatin [From Zocor] Allergy Unknown Verified 02/28/17 14:42 Physical Exam Vitals: Vital Signs Temp Pulse Resp BP Pulse Ox 03/01/17 09:00 61 14 125/58 98 03/01/17 08:47 100 03/01/17 08:00 98.2 F 63 19 143/61 100 03/01/17 07:00 60 14 130/61 100 03/01/17 06:45 65 14 128/57 100 03/01/17 06:30 62 12 128/57 100 03/01/17 06:15 61 22 117/56 100 03/01/17 06:00 62 14 117/56 100 03/01/17 05:45 62 14 134/57 100 03/01/17 05:30 60 14 134/57 99 03/01/17 05:15 60 16 126/59 100 03/01/17 05:00 58 L 17 126/59 99 03/01/17 04:45 75 22 153/75 97 03/01/17 04:30 73 17 153/75 97 03/01/17 04:15 69 45 H 133/60 95 03/01/17 04:00 59 L 16 133/60 99 03/01/17 03:45 63 16 136/70 98 03/01/17 03:30 62 11 L 136/70 99 03/01/17 03:15 63 10 L 145/59 100 03/01/17 03:06 11 L 05 03:00 59 L 11 L 145/59 100 03/01/17 02:45 59 L 13 140/62 100 03/01/17 02:30 63 12 140/62 100 03/01/17 02:15 62 14 158/66 100 03/01/17 02:00 67 14 158/66 100 03/01/17 01:45 83 11 L 141/61 99 03/01/17 01:30 63 12 141/61 100 03/01/17 01:15 61 11 L 140/58 100 03/01/17 01:00 62 12 140/58 100 03/01/17 00:45 63 12 145/62 100 06 00:30 63 12 145/62 100 03/01/17 00:15 63 15 131/58 100 03/01/17 00:06 62 22 131/58 99 03/01/17 00:00 62 11 L 131/58 100 050517 23:45 73 14 135/63 100 05/05/17 23:30 66 11 L 135/63 100 050517 23:15 63 12 142/61 100 0505/17 23:03 13 0505 23:00 78 13 142/61 100 05/05/17 22:45 68 14 147/66 100 05/05/17 22:39 97.7 F 65 14 147/66 100 05/05/17 22:30 66 13 147/66 100 05/05/17 22:15 67 13 153/69 100 05/05/17 22:00 65 14 153/69 100 05/05/17 21:45 62 14 166/66 100 05/05/17 21:30 67 14 166/66 100 05/05/17 21:15 66 13 148/64 100 02/28/17 21:13 97.6 F 65 14 148/64 100 02/28/17 21:00 66 12 148/64 100 02/28/17 20:45 66 12 156/68 100 02/28/17 20:43 98 F 65 14 141/64 100 02/28/17 20:33 97.7 F 65 14 156/68 100 02/28/17 20:30 64 16 156/68 100 02/28/17 20:16 97.7 F 65 14 123/59 99 02/28/17 20:15 67 19 123/59 100 02/28/17 20:00 97.7 F 62 11 L 142/59 100 02/28/17 19:45 62 11 L 140/62 100 02/28/17 19:30 61 10 L 145/59 100 02/28/17 19:15 63 13 139/69 100 02/28/17 19:00 65 17 146/64 100 02/28/17 18:45 97.9 F 66 15 129/57 100 02/28/17 18:30 63 11 L 143/64 100 02/28/17 18:15 98.5 F 62 18 131/74 96 02/28/17 18:05 98.4 F 65 18 150/70 97 02/28/17 18:00 65 18 130/60 100 02/28/17 17:00 66 13 151/68 100 02/28/17 16:30 98.0 F 73 10 L 152/61 99 02/28/17 15:49 97.7 F 75 20 143/67 99 Intake and Output 02/28/17 03/01/17 03/01/17 22:59 06:59 14:59 Intake Total 920 525 325 Output Total 730 625 325 Balance 190 -100 0 Intake: Intake, IV Titration 300 525 225 Amount Sodium Chloride 0.9% 1, 300 525 225 000 ml @ 75 mls/hr IV . [id number] [facility] Rx#:[id number] Oral 100 Blood Product 620 Rc As-1 Unit 310 [id number] Rc Pheresis 2 As3 Unit 310 [id number] Output: Urine 730 625 325 Other: Voiding Method Indwelling Catheter Indwelling Catheter Indwelling Catheter Weight 80.3 kg In general patient is alert and responsive in no apparent distress HEENT head normocephalic and atraumatic Neck is supple no JVD no goiter no lymphadenopathy Chest exam reveals a scattered crackles bilaterally no wheezing Cardiac exam reveals regular heart sounds no gallops no murmurs Abdomen is soft nontender no organomegaly with normal bowel sounds Extremity exam reveals no edema no cyanosis or clubbing Results CBC & Chem 7: 03/01/17 05:03 03/01/17 05:03 Labs: Abnormal Lab Results - Last 24 Hours (Table) 02/28/17 02/28/17 03/01/17 Range/Units 17:10 18:25 00:05 RBC 2.71 L (4.30-5.90) m/uL Hgb 7.7 L D (13.0-17.5) gm/dL Hct 24.1 L (39.0-53.0) % Lymphocytes # 0.7 L (1.0-4.8) k/uL Chloride (98-107) mmol/L BUN (9-20) mg/dL Creatinine (0.66-1.25) mg/dL POC Glucose (mg/dL) 242 H (75-99) mg/dL Calcium (8.4-10.2) mg/dL Urine Protein Trace H (Negative) Urine Glucose (UA) 4+ H (Negative) 03/01/17 03/01/17 Range/Units 05:03 05:03 RBC 2.72 L (4.30-5.90) m/uL Hgb 7.6 L (13.0-17.5) gm/dL Hct 24.0 L (39.0-53.0) % Lymphocytes # 0.9 L (1.0-4.8) k/uL Chloride 111 H (98-107) mmol/L BUN 34 H (9-20) mg/dL Creatinine 1.90 H (0.66-1.25) mg/dL POC Glucose (mg/dL) (75-99) mg/dL Calcium 8.3 L (8.4-10.2) mg/dL Urine Protein (Negative) Urine Glucose (UA) (Negative) Microbiology - Last 24 Hours (Table) 02/28/17 17:10 Urine Culture - Preliminary Urine,Catheterized Assessment and Plan Plan: #1 severe anemia, likely related to recent gastrointestinal bleeding, no evidence of active bleeding at this time, patient can be transferred out of intensive care unit. He was given red blood cell transfusion and hemoglobin is up to 7.6 will discuss with further therapeutic steps versus consort care versus hospice. seems to be confused in regard to multiple levels of care will arrange for meeting with the case coordinator and long term care social worker to help her decide in regard to his care. At this time will continue was current management gastroenterology consultation has been requested will give red blood cells as needed slowly to avoid fluid overload due to his known cardiac history, patient can be transferred safely to medical floor will follow closely.
--- NOTE | 2017-03-01 11:18 | P.CNPUL ---
History of Present Illness Consult date: 03/01/17 Requesting physician: Leandro Motley Reason for consult: other (Profound anemia, patient was admitted to the ICU) Chief complaint: Low hemoglobin and abnormal labs History of present illness: This is a 76-year-old white male with history of multiple medical problems, chronic medical debility related to previous CVA and multiple strokes, patient is a medical [facility] resident, recent labs showed severe anemia with hemoglobin of 5.9. His was made aware, initially she was reluctant to transfuse the patient, but apparently she changed her mind, decided to bring him into the hospital, transfuse him, in the meantime she initiated hospice evaluation for possible hospice care. Patient was admitted, his CODE STATUS was DO NOT RESUSCITATE all along, requested no heroic measures, she did however agree to blood transfusion and this was given last night. Did not agree to any diagnostic or therapeutic procedures except for blood transfusion. In the meantime hospice was notified, and the patient will be switched to hospice care later today. The patient himself is a poor historian, he has multiple medical problems as listed below. Review of Systems ROS unobtainable: due to mental status Past Medical History Past Medical History: Coronary Artery Disease (CAD), Heart Failure, CVA/TIA, Diabetes Mellitus, GI Bleed, Hypertension, Liver Disease, Myocardial Infarction ([place]), Renal Disease Additional Past Medical History / Comment(s): HX OF CARDIAC ARREST WITH CENTRAL LOBE BRAIN DAMAGE. pt is rt hand dominant-previous admit w/stroke-had aphasia and rt side hemiparesis, HX OF CIRRHOSIS, HX OF ESOPHAGEAL VARICIES, HX OF TORN LEFT CALF MUSCLE 2 YEARS AGO WITH WOUND (2012), USES WALKER ., INPATIENT AUG 2015 FOR LOW HGB AND RECEIVED BLOOD TRANSFUSIONS. Last Myocardial Infarction Date:: 10/1994 History of Any Multi-Drug Resistant Organisms: MRSA Date of last positivie culture/infection: 2012 MDRO Source:: leg, foot, lungs Past Surgical History: Coronary Bypass/CABG, Heart Catheterization With Stent, Hernia Repair, Orthopedic Surgery Additional Past Surgical History / Comment(s): quad bypass, bilateral carotids, SURG LEFT LEG WOUND., EGD AUG 2015 Past Anesthesia/Blood Transfusion Reactions: No Reported Reaction Additional Past Anesthesia/Blood Transfusion Reaction / Comment(s): HX OF BLOOD TRANSFUSIONS-NO PROBLEMS. Date of Last Stent Placement:: unk Past Psychological History: Anxiety, Depression Additional Psychological History / Comment(s): pt is .currently resides at [facility]. 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 they further stated that pt answers mostly yes/no to questions Smoking Status: Former smoker Past Alcohol Use History: Rare Additional Past Alcohol Use History / Comment(s): HX OF HEAVY ALCOHOL USE. QUIT AUG 2013. SMOKED A PIPE. QUIT SMOKING 1989. Past Drug Use History: None Reported - Past Family History Mother Family Medical History: Myocardial Infarction ([place]) Additional Family Medical History / Comment(s): x7 mi's Father Family Medical History: Diabetes Mellitus Additional Family Medical History / Comment(s): amp lower extremity Medications and Allergies Home Medications Medication Instructions Recorded Confirmed Type PARoxetine [Paxil] 20 mg PO DAILY 02/03/17 02/28/17 History glipiZIDE XL [Glucotrol XL] 5 mg PO AC-SUPPER 02/03/17 02/28/17 History Apixaban [Eliquis] 2.5 mg PO BID@0800,1600 02/28/17 02/28/17 History Insulin Glargine [Lantus] 15 unit SQ DAILY@199902/28/17 02/28/17 History hydrALAZINE HCL [Apresoline] 25 mg PO TID@0800,1300,199902/28/17 02/28/17 History Allergies Allergy/AdvReac Type Severity Reaction Status Date / Time donepezil HCl [From Aricept] Allergy Unknown Verified 02/28/17 14:42 sertraline HCl [From Zoloft] Allergy Unknown Verified 02/28/17 14:42 simvastatin [From Zocor] Allergy Unknown Verified 02/28/17 14:42 Physical Exam Vitals: Vital Signs Temp Pulse Resp BP Pulse Ox 03/01/17 09:00 61 14 125/58 98 03/01/17 08:47 100 03/01/17 08:00 98.2 F 63 19 143/61 100 03/01/17 07:00 60 14 130/61 100 03/01/17 06:45 65 14 128/57 100 03/01/17 06:30 62 12 128/57 100 03/01/17 06:15 61 22 117/56 100 03/01/17 06:00 62 14 117/56 100 03/01/17 05:45 62 14 134/57 100 03/01/17 05:30 60 14 134/57 99 03/01/17 05:15 60 16 126/59 100 03/01/17 05:00 58 L 17 126/59 99 03/01/17 04:45 75 22 153/75 97 03/01/17 04:30 73 17 153/75 97 03/01/17 04:15 69 45 H 133/60 95 03/01/17 04:00 59 L 16 133/60 99 03/01/17 03:45 63 16 136/70 98 03/01/17 03:30 62 11 L 136/70 99 03/01/17 03:15 63 10 L 145/59 100 03/01/17 03:06 11 L 03/01/17 03:00 59 L 11 L 145/59 100 03/01/17 02:45 59 L 13 140/62 100 03/01/17 02:30 63 12 140/62 100 06 02:15 62 14 158/66 100 03/01/17 02:00 67 14 158/66 100 03/01/17 01:45 83 11 L 141/61 99 03/01/17 01:30 63 12 141/61 100 03/01/17 01:15 61 11 L 140/58 100 03/01/17 01:00 62 12 140/58 100 03/01/17 00:45 63 12 145/62 100 06 00:30 63 12 145/62 100 03/01/17 00:15 63 15 131/58 100 03/01/17 00:06 62 22 131/58 99 06 00:00 62 11 L 131/58 100 0517 23:45 73 14 135/63 100 0505/17 23:30 66 11 L 135/63 100 0517 23:15 63 12 142/61 100 050517 23:03 13 0517 23:00 78 13 142/61 100 0517 22:45 68 14 147/66 100 05/05/17 22:39 97.7 F 65 14 147/66 100 05/05/17 22:30 66 13 147/66 100 05/05/17 22:15 67 13 153/69 100 05/05/17 22:00 65 14 153/69 100 05/05/17 21:45 62 14 166/66 100 05/05/17 21:30 67 14 166/66 100 05/05/17 21:15 66 13 148/64 100 05/05/17 21:13 97.6 F 65 14 148/64 100 05/05/17 21:00 66 12 148/64 100 05/05/17 20:45 66 12 156/68 100 05/05/17 20:43 98 F 65 14 141/64 100 05/05/ 20:33 97.7 F 65 14 156/68 100 05/05/17 20:30 64 16 156/68 100 05/05/ 20:16 97.7 F 65 14 123/59 99 0505/17 20:15 67 19 123/59 100 05/ 20:00 97.7 F 62 11 L 142/59 100 0505/17 19:45 62 11 L 140/62 100 05/05/17 19:30 61 10 L 145/59 100 05/05/17 19:15 63 13 139/69 100 05/05/17 19:00 65 17 146/64 100 05/05/17 18:45 97.9 F 66 15 129/57 100 0505/17 18:30 63 11 L 143/64 100 05/17 18:15 98.5 F 62 18 131/74 96 0505/17 18:05 98.4 F 65 18 150/70 97 05/05/17 18:00 65 18 130/60 100 0505/17 17:00 66 13 151/68 100 0505/17 16:30 98.0 F 73 10 L 152/61 99 /05/17 15:49 97.7 F 75 20 143/67 99 Intake and Output 0503/01/17 03/01/17 22:59 06:59 14:59 Intake Total 920 525 325 Output Total 730 625 325 Balance 190 -100 0 Intake: Intake, IV Titration 300 525 225 Amount Sodium Chloride 0.9% 1, 300 525 225 000 ml @ 75 mls/hr IV . [id number] [facility] Rx#:[id number] Oral 100 Blood Product 620 Rc As-1 Unit 310 [id number] Rc Pheresis 2 As3 Unit 310 [id number] Output: Urine 730 625 325 Other: Voiding Method Indwelling Catheter Indwelling Catheter Indwelling Catheter Weight 80.3 kg Physical Exam: Revealed a 76-year-old white male, response to simple verbal questions, in no form of respiratory distress. HEENT:[Neck is supple.] [No neck masses.] [No thyromegaly.] [No JVD.] Chest: [Diminished breath sounds at the bases with minimal crackles.] Cardiac Exam: [Normal S1 and S2, no S3 gallop, no murmur.] Abdomen: [Soft, nontender, no megaly, no rebound, no guarding, normal bowel sounds.] Extremities: [No clubbing, no edema, no cyanosis.] Neurological Exam: [Right-sided weakness as noted, related to previous CVA involving the left hemisphere. patient is not oriented to place time or person , but answers simple questions only. Results - Laboratory Findings CBC and BMP: 03/01/17 05:03 03/01/17 05:03 PT/INR, D-dimer PT 11.8 sec (9.0-12.0) 02/28/17 14:25 INR 1.2 (<1.1) 02/28/17 14:25 Abnormal lab findings: Abnormal Labs 02/28/17 02/28/17 03/01/17 17:10 18:25 00:05 RBC 2.71 L Hgb 7.7 L D Hct 24.1 L Lymphocytes # 0.7 L Chloride BUN Creatinine POC Glucose (mg/dL) 242 H Calcium Urine Protein Trace H Urine Glucose (UA) 4+ H 03/01/17 03/01/17 05:03 05:03 RBC 2.72 L Hgb 7.6 L Hct 24.0 L Lymphocytes # 0.9 L Chloride 111 H BUN 34 H Creatinine 1.90 H POC Glucose (mg/dL) Calcium 8.3 L Urine Protein Urine Glucose (UA) Assessment and Plan Plan: Impression: 1 Acute on chronic anemia multifactorial, however patient is known to have history of liver cirrhosis and previous episodes of esophageal variceal bleed. No gross active bleeding was noted on this admission, but in the ER the patient had positive Hemoccult stools. 2 history of multifocal ischemic stroke with right hemiparesis and previous history of expressive aphasia. 3 history of chronic encephalopathy 4 history of alcoholic liver cirrhosis and previous esophageal bleed in 2009. 5 type 2 diabetes 6 history of coronary artery disease. 7 medical debility related to his previous multiple medical problems and strokes. Recommendation: Agree with comfort care measures at this point, agree with hospice plans, patient will likely be transferred out of the ICU to the medical floor today, and then hospice will take over possibly today. We'll follow the patient on when necessary basis. Time with Patient: Greater than 30
[2017-03-01 12:29] LABS: Glucose,Whole Blood 170 mg/dL (75-99)
[2017-03-01 17:17] LABS: Glucose,Whole Blood 264 mg/dL (75-99)
[2017-03-02 00:06] LABS: Glucose,Whole Blood 236 mg/dL (75-99)
[2017-03-02] MEDS: INSULIN LISPRO (humaLOG) 300 UNIT/3 ML VIAL SQ SCH ×5 (00:39→20:53)
[2017-03-02 06:12] LABS: Glucose,Whole Blood 123 mg/dL (75-99)
[2017-03-02] MEDS: PARoxetine 20 MG TAB PO SCH (08:58)
[2017-03-02] MEDS: hydrALAZINE HCL 25 MG TAB PO SCH ×3 (08:58→20:54)
[2017-03-02] MEDS: PANTOPRAZOLE 40 MG/10 ML VIAL IV SCH ×2 (08:58→20:53)
[2017-03-02] MEDS: amLODIPine 5 MG TAB PO SCH (08:58)
[2017-03-02] MEDS: CARVEDILOL 3.125 MG TAB PO SCH ×2 (08:58→17:28)
[2017-03-02] MEDS: SODIUM CHLORIDE 0.9% 1,000 ML IV SCH (08:59)
[2017-03-02 09:37] LABS: Aty Lym Flag Slight; CH 28.3; CHCM 31.6; HDW 4.63; HGB 7.1 gm/dL (13.0-17.5); Hypochromasia Marked; MCH 27.9 pg (25.0-35.0); MCHC 30.9 g/dL (31.0-37.0); MCV 90.1 fL (80.0-100.0); Poikilocytosis Marked; RBC 2.55 m/uL (4.30-5.90); RDW 14.8 % (11.5-15.5); WBC (Perox) 5.31
[2017-03-02 09:48] LABS: Magnesium 1.9 mg/dL (1.6-2.3); Phosphorous 3.1 mg/dL (2.5-4.5); Total Bilirubin 0.9 mg/dL (0.2-1.3); Total Protein 5.3 g/dL (6.3-8.2)
--- NOTE | 2017-03-02 11:08 | P.PN ---
Subjective Principal diagnosis: Severe anemia Patient is a 76-year-old male who is currently at [facility] for rehab, who was found to have severe anemia with hemoglobin down to 5.9 initially his was not sure if she wanted to proceed was medical care or to proceed with hospice she decided to proceed with medical care and patient was transferred to [facility] emergency room and was subsequently admitted to intensive care unit. Patient is somnolent he denies any complaints at this time Objective - Vital Signs Vital signs: Vital Signs Temp 97.7 F 03/02/17 07:00 Pulse 71 03/02/17 07:00 Resp 18 03/02/17 07:00 BP 128/59 03/02/17 07:00 Pulse Ox 96 03/02/17 07:00 Intake & Output 03/01/17 03/02/17 03/02/17 18:59 06:59 18:59 Intake Total 325 Output Total 325 800 Balance 0 -800 Intake: Intake, IV Titration 225 Amount Sodium Chloride 0.9% 1, 225 000 ml @ 75 mls/hr IV . [id number] [facility] Rx#:[id number] Oral 100 Output: Urine 325 800 Other: Voiding Method Indwelling Catheter Indwelling Catheter Indwelling Catheter # Voids 0 - Exam In general patient is alert responsive in no apparent distress HEENT head normocephalic and atraumatic Neck is supple no JVD no goiter no lymphadenopathy Chest exam reveals a scattered crackles bilaterally no wheezing Cardiac exam reveals regular heart sounds no gallops no murmurs Abdomen is soft nontender no organomegaly with normal bowel sounds Extremity exam reveals no edema no cyanosis or clubbing - Labs CBC & Chem 7: 03/02/17 08:35 03/02/17 08:35 Labs: Abnormal Lab Results - Last 24 Hours (Table) 03/01/17 03/01/17 03/02/17 Range/Units 12:27 17:12 00:02 RBC (4.30-5.90) m/uL Hgb (13.0-17.5) gm/dL Hct (39.0-53.0) % MCHC (31.0-37.0) g/dL Chloride (98-107) mmol/L Carbon Dioxide (22-30) mmol/L BUN (9-20) mg/dL Creatinine (0.66-1.25) mg/dL Glucose (74-99) mg/dL POC Glucose (mg/dL) 170 H 264 H 236 H (75-99) mg/dL Calcium (8.4-10.2) mg/dL Total Protein (6.3-8.2) g/dL Albumin (3.5-5.0) g/dL 03/02/17 03/02/17 03/02/17 Range/Units 06:11 08:35 08:35 RBC 2.55 L (4.30-5.90) m/uL Hgb 7.1 L (13.0-17.5) gm/dL Hct 23.0 L (39.0-53.0) % MCHC 30.9 L (31.0-37.0) g/dL Chloride 111 H (98-107) mmol/L Carbon Dioxide 21 L (22-30) mmol/L BUN 28 H (9-20) mg/dL Creatinine 1.77 H (0.66-1.25) mg/dL Glucose 170 H (74-99) mg/dL POC Glucose (mg/dL) 123 H (75-99) mg/dL Calcium 8.0 L (8.4-10.2) mg/dL Total Protein 5.3 L (6.3-8.2) g/dL Albumin 2.5 L (3.5-5.0) g/dL Microbiology - Last 24 Hours (Table) 02/28/17 17:10 Urine Culture - Final Urine,Catheterized
[2017-03-02 11:11] LABS: Add Differential Manual Differential
[2017-03-02 11:14] LABS: Manual Review Performed; Nucleated Red Blood Cells 0 /100 WBC (0-0); Total Cells Counted 100
[2017-03-02 11:53] LABS: Glucose,Whole Blood 242 mg/dL (75-99)
[2017-03-02 17:36] LABS: Glucose,Whole Blood 213 mg/dL (75-99)
[2017-03-02 20:42] LABS: Glucose,Whole Blood 259 mg/dL (75-99)
[2017-03-03] MEDS: SODIUM CHLORIDE 0.9% 1,000 ML IV SCH ×2 (00:18→13:44)
[2017-03-03 07:05] LABS: Glucose,Whole Blood 153 mg/dL (75-99)
[2017-03-03] MEDS: PANTOPRAZOLE 40 MG/10 ML VIAL IV SCH (07:35)
[2017-03-03] MEDS: hydrALAZINE HCL 25 MG TAB PO SCH ×3 (07:35→21:37)
[2017-03-03] MEDS: PARoxetine 20 MG TAB PO SCH (07:36)
[2017-03-03] MEDS: amLODIPine 5 MG TAB PO SCH (07:36)
[2017-03-03] MEDS: CARVEDILOL 3.125 MG TAB PO SCH ×2 (07:36→18:05)
[2017-03-03] MEDS: INSULIN LISPRO (humaLOG) 300 UNIT/3 ML VIAL SQ SCH ×4 (07:36→21:37)
[2017-03-03 08:31] LABS: Basophils % (A) 1 %; CH 28.7; CHCM 32.2; Eosinophils # (A) 0.4 k/uL (0-0.7); Eosinophils % (A) 7 %; HCT 26.6 % (39.0-53.0); HDW 4.57; HGB 8.4 gm/dL (13.0-17.5); Hypochromasia Moderate; Luc % (Auto) 4; Lymphocytes # (A) 0.8 k/uL (1.0-4.8); Lymphocytes % (A) 14 %; MCH 28.2 pg (25.0-35.0); MCHC 31.5 g/dL (31.0-37.0); MCV 89.5 fL (80.0-100.0); Mean Platelet Volume 7.9; Monocytes # (A) 0.5 k/uL (0-1.0); Monocytes % (A) 10 %; Neutrophils # (A) 3.5 k/uL (1.3-7.7); Neutrophils % (A) 65 %; Poikilocytosis Moderate; RBC 2.98 m/uL (4.30-5.90); RDW 14.6 % (11.5-15.5); WBC 5.4 k/uL (3.8-10.6); WBC (Perox) 5.58
[2017-03-03 08:41] LABS: Calcium 7.9 mg/dL (8.4-10.2); Magnesium 1.8 mg/dL (1.6-2.3); Phosphorous 2.9 mg/dL (2.5-4.5); Potassium 3.8 mmol/L (3.5-5.1); Total Bilirubin 1.1 mg/dL (0.2-1.3); Total Protein 5.3 g/dL (6.3-8.2)
[2017-03-03 12:11] LABS: Glucose,Whole Blood 229 mg/dL (75-99)
--- NOTE | 2017-03-03 14:57 | P.PN ---
Subjective Patient is comfortable today. He is awake and alert. No specific complaints. Objective - Vital Signs Vital signs: Vital Signs Temp 98.4 F 03/03/17 14:39 Pulse 99 03/03/17 14:39 Resp 18 03/03/17 14:39 BP 127/68 03/03/17 14:39 Pulse Ox 95 03/03/17 14:39 Intake & Output 03/02/17 03/03/17 03/03/17 18:59 06:59 18:59 Intake Total 1220 600 480 Output Total 450 775 575 Balance 770 -175 -95 Intake: IV 600 600 Sodium Chloride 0.9% 1, 600 600 000 ml @ 75 mls/hr IV . [id number] [facility] Rx#:[id number] Oral 480 Blood Product 620 Rc Pheresis 2 As3 Unit 310 [id number] Output: Urine 450 775 575 Other: Voiding Method Indwelling Catheter Indwelling Catheter Indwelling Catheter # Voids 1 # Bowel Movements 1 1 1 - Exam General: The patient is awake and alert, in no distress Eye: there is normal conjunctiva bilaterally. Neck: The neck is supple, there is no JVD. Cardiovascular: Normal S1-S2, no S3-S4, no murmurs. Respiratory: Lungs clear to auscultation bilaterally Gastrointestinal: Abdomen is soft, nontender Musculoskeletal: There is no pedal edema. Neurological:. Speech is normal. Skin: Skin is warm and dry - Labs CBC & Chem 7: 03/03/17 07:26 03/03/17 07:26 Labs: Abnormal Lab Results - Last 24 Hours (Table) 03/02/17 03/02/17 03/03/17 Range/Units 17:29 20:39 06:49 RBC (4.30-5.90) m/uL Hgb (13.0-17.5) gm/dL Hct (39.0-53.0) % Lymphocytes # (1.0-4.8) k/uL Chloride (98-107) mmol/L BUN (9-20) mg/dL Creatinine (0.66-1.25) mg/dL Glucose (74-99) mg/dL POC Glucose (mg/dL) 213 H 259 H 153 H (75-99) mg/dL Calcium (8.4-10.2) mg/dL Total Protein (6.3-8.2) g/dL Albumin (3.5-5.0) g/dL 03/03/17 03/03/17 03/03/17 Range/Units 07:26 07:26 12:08 RBC 2.98 L (4.30-5.90) m/uL Hgb 8.4 L (13.0-17.5) gm/dL Hct 26.6 L (39.0-53.0) % Lymphocytes # 0.8 L (1.0-4.8) k/uL Chloride 110 H (98-107) mmol/L BUN 25 H (9-20) mg/dL Creatinine 1.83 H (0.66-1.25) mg/dL Glucose 130 H (74-99) mg/dL POC Glucose (mg/dL) 229 H (75-99) mg/dL Calcium 7.9 L (8.4-10.2) mg/dL Total Protein 5.3 L (6.3-8.2) g/dL Albumin 2.5 L (3.5-5.0) g/dL Assessment and Plan Plan: 1. History of multifocal ischemic stroke, with residual right hemiparesis. 2. Acute on chronic blood loss anemia status post 2 units of blood transfusion during this admission 3. Type 2 diabetes mellitus 4. Stage IV chronic kidney disease with baseline creatinine around 2-2.5 5. 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 Coronary artery disease: Managed medically 7. Anemia of chronic disease and iron deficiency anemia Patient is currently on comfort measures per his request. No aggressive measures. Possible enrollment in hospice. cushion worker following for placement.
[2017-03-03 17:13] LABS: Glucose,Whole Blood 274 mg/dL (75-99)
[2017-03-03 21:03] LABS: Glucose,Whole Blood 247 mg/dL (75-99)
[2017-03-04] MEDS ORDERED: PANTOPRAZOLE 40 MG TABLET PO SCH (07:30)
[2017-03-04 07:38] LABS: Glucose,Whole Blood 153 mg/dL (75-99)
[2017-03-04] MEDS: amLODIPine 5 MG TAB PO SCH (09:13)
[2017-03-04] MEDS: PARoxetine 20 MG TAB PO SCH (09:13)
[2017-03-04] MEDS: hydrALAZINE HCL 25 MG TAB PO SCH ×2 (09:13→13:07)
[2017-03-04] MEDS: INSULIN LISPRO (humaLOG) 300 UNIT/3 ML VIAL SQ SCH ×3 (09:13→17:57)
[2017-03-04] MEDS: CARVEDILOL 3.125 MG TAB PO SCH ×2 (09:13→17:58)
[2017-03-04 10:06] LABS: Calcium 8.1 mg/dL (8.4-10.2); Magnesium 1.8 mg/dL (1.6-2.3); Phosphorous 2.7 mg/dL (2.5-4.5); Potassium 3.8 mmol/L (3.5-5.1)
[2017-03-04 11:54] LABS: Glucose,Whole Blood 221 mg/dL (75-99)
--- NOTE | 2017-03-04 12:16 | P.PN ---
Subjective Principal diagnosis: Anemia 76-year-old male reevaluated today in regards to anemia. Patient had a brown bowel movement this morning. Hemoglobin yesterday 8.4. Objective - Vital Signs Vital signs: Vital Signs Temp 97.6 F 03/04/17 07:00 Pulse 71 03/04/17 07:00 Resp 20 03/04/17 07:00 BP 151/72 03/04/17 07:00 Pulse Ox 95 03/04/17 07:00 Intake & Output 03/03/17 03/04/17 03/04/17 18:59 06:59 18:59 Intake Total 480 320 Output Total 575 1825 Balance -95 -1825 320 Intake: Oral 480 320 Output: Urine 575 1825 Other: Voiding Method Indwelling Catheter Indwelling Catheter Indwelling Catheter # Voids 1 # Bowel Movements 1 1 - Exam NGeneral appearance: The patient is alert, oriented, in no acute distress. HET: Head is normocephalic and atraumatic. Pupils are equal and reactive. Oropharynx is clear without lesions. Neck: Supple without lymphadenopathy. Trachea midline. Heart: S1 S2. Regular rate and rhythm. Lungs: No crackles or wheezes are heard. Abdomen: Soft, nontender, nondistended with bowel sounds. No peritoneal signs. No palpable organomegaly or masses. Extremities: Right hemiparesis. Neurological: No focal deficits. Strength and sensation are grossly intact.m - Labs CBC & Chem 7: 03/03/17 07:26 03/04/17 09:04 Labs: Abnormal Lab Results - Last 24 Hours (Table) 03/03/17 03/03/17 03/03/17 Range/Units 12:08 17:07 21:01 Chloride (98-107) mmol/L BUN (9-20) mg/dL Creatinine (0.66-1.25) mg/dL Glucose (74-99) mg/dL POC Glucose (mg/dL) 229 H 274 H 247 H (75-99) mg/dL Calcium (8.4-10.2) mg/dL 03/04/17 03/04/17 Range/Units 07:03 09:04 Chloride 111 H (98-107) mmol/L BUN 24 H (9-20) mg/dL Creatinine 1.83 H (0.66-1.25) mg/dL Glucose 195 H (74-99) mg/dL POC Glucose (mg/dL) 153 H (75-99) mg/dL Calcium 8.1 L (8.4-10.2) mg/dL Assessment and Plan Plan: 1. Acute blood loss anemia status post transfusion with positive Hemoccult suggestive of acute GI bleed with underlying chronic iron deficiency anemia. No active bleeding at this time. Hemoglobin stable. Patient and family requesting no aggressive measures. 2. Underlying alcohol liver cirrhosis. 3. Stage 4 chronic kidney disease. 4. Will sign off call for questions/concerns. Assessment and plan of care discussed with Dr. Huizar
--- NOTE | 2017-03-04 14:45 | P.DS ---
Providers Date of admission: 02/28/17 15:26 Expected date of discharge: 03/04/17 Attending physician: Leandro Motley Consults: 02/28/17 16:01 Consult Physician Urgent Consulting Provider: Tierney Cantu Consult Reason/Comments: Critical care management Do you want consulting provider notified?: Already Contacted Primary care physician: Rosalva Mcguire [facility] Course: This is a 76-year-old gentleman with a very complex past medical history noted below who presented to the hospital with acute blood loss anemia and GI bleed. Patient was stabilized and received 3 units of blood transfusion. Patient is demented and lacks capacity of making medical decisions. His Kristy is the main decision maker. After discussions she decided she would like to pursue comfort measures. No invasive testing was done during this hospitalization. Plan to discharge patient back to ECF. Below his abuse of his medical problems addressed during this hospitalization. 1. History of multifocal ischemic stroke, with residual right hemiparesis. 2. Acute on chronic blood loss anemia status post 2 units of blood transfusion during this admission 3. Type 2 diabetes mellitus 4. Stage IV chronic kidney disease with baseline creatinine around 2-2.5 5. 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 Coronary artery disease: Managed medically 7. Anemia of chronic disease and iron deficiency anemia Plan - Discharge Summary Discharge Medication List PARoxetine [Paxil] 20 mg PO DAILY 02/03/17 [History] glipiZIDE XL [Glucotrol XL] 5 mg PO AC-SUPPER 02/03/17 [History] Carvedilol [Coreg] 3.125 mg PO BID-W/MEALS tab 02/10/17 [Rx] amLODIPine [Norvasc] 5 mg PO DAILY #30 tab 02/10/17 [Rx] hydrALAZINE HCL [Apresoline] 25 mg PO TID@0800,1300,2000 02/28/17 [History] Pantoprazole [Protonix] 40 mg PO AC-BRKFST tablet. 03/04/17 [Rx] Follow up Appointment(s)/Referral(s): Rosalva Mcguire MD [Primary Care Provider] - 1-2 days Discharge Disposition: TRANSFER TO SNF/ECF
[2017-03-04 15:07] VITALS: BP 125/69; PULSE 91; RESP 16; TEMP 97.9
[2017-03-04 17:18] LABS: Glucose,Whole Blood 252 mg/dL (75-99)
== END 2017-03-04 18:24 | DRG 378 ==
LOC: EC 14:09 → 6ICU 15:26 → 4MS4W 03-01 12:49
PROVIDERS: ADMIT Internal Medicine; ATTEND Internal Medicine
PROC: 30233N1 Transfusion of Nonautologous Red Blood Cells into Peripheral Vein, Percutaneous Approach (ICD-10-PCS; principal; 2017-02-28)
DX: K92.2 Gastrointestinal hemorrhage, unspecified (principal); D62 Acute posthemorrhagic anemia; N18.4 Chronic kidney disease, stage 4 (severe); E11.22 Type 2 diabetes mellitus with diabetic chronic kidney disease; I13.0 Hypertensive heart and chronic kidney disease with heart failure and stage 1 through stage 4 chronic kidney disease, or unspecified chronic kidney disease; F03.90 Unspecified dementia, unspecified severity, without behavioral disturbance, psychotic disturbance, mood disturbance, and anxiety; I50.9 Heart failure, unspecified; I48.91 Unspecified atrial fibrillation; I69.351 Hemiplegia and hemiparesis following cerebral infarction affecting right dominant side; D50.0 Iron deficiency anemia secondary to blood loss (chronic); D63.8 Anemia in other chronic diseases classified elsewhere; E78.00 Pure hypercholesterolemia, unspecified; K70.30 Alcoholic cirrhosis of liver without ascites; E78.5 Hyperlipidemia, unspecified; F32.9 Major depressive disorder, single episode, unspecified; F41.9 Anxiety disorder, unspecified; I25.10 Atherosclerotic heart disease of native coronary artery without angina pectoris; Z66 Do not resuscitate; Z51.5 Encounter for palliative care; Z79.4 Long term (current) use of insulin; Z79.899 Other long term (current) drug therapy; I25.2 Old myocardial infarction; I69.320 Aphasia following cerebral infarction; Z79.82 Long term (current) use of aspirin; Z82.49 Family history of ischemic heart disease and other diseases of the circulatory system; Z86.74 Personal history of sudden cardiac arrest; Z87.891 Personal history of nicotine dependence; Z95.1 Presence of aortocoronary bypass graft
CPT/HCPCS: 36415; 80048; 80053; 81003; 82272; 82550; 82553; 83036; 83735; 84100; 84484; 85025; 85610; 85730; 86850; 86900; 86901; 86920; 87086; 93005; 99291

== ENCOUNTER 2017-03-19 17:54 | Inpatient (IN) | payer MEDICARE, BC ==
[2017-03-19] MEDS ORDERED: SODIUM CHLORIDE 0.9% 1,000 ML IV STA ×2 (17:56→19:29)
--- NOTE | 2017-03-19 18:03 | ED ---
General Adult HPI - General Stated complaint: confusion Time Seen by Provider: 03/19/17 17:56 Source: EMS, RN notes reviewed, old records reviewed Mode of arrival: EMS Limitations: altered mental status - History of Present Illness Initial comments: This is a 76-year-old male to the ER for evaluation. Patient presents today for evaluation of altered mental status, patient is unable to give history. History obtained from cancer records, patient's live patient transfer secondary increased weakness and confusion. Patient unable to give history secondary to underlying medical condition. Per metallized patient did not need ER evaluation, again patient unable to give history. Patient denies complaints - Related Data Home Medications Medication Instructions Recorded Confirmed PARoxetine [Paxil] 20 mg PO DAILY 02/03/17 02/28/17 glipiZIDE XL [Glucotrol XL] 5 mg PO AC-SUPPER 02/03/17 02/28/17 hydrALAZINE HCL [Apresoline] 25 mg PO TID@0800,1300,2000 02/28/17 02/28/17 Previous Rx's Medication Instructions Recorded Carvedilol [Coreg] 3.125 mg PO BID-W/MEALS tab 02/10/17 amLODIPine [Norvasc] 5 mg PO DAILY #30 tab 02/10/17 Pantoprazole [Protonix] 40 mg PO AC-BRKFST tablet. 03/04/17 Allergies Allergy/AdvReac Type Severity Reaction Status Date / Time donepezil HCl [From Aricept] Allergy Unknown Verified 02/28/17 14:42 sertraline HCl [From Zoloft] Allergy Unknown Verified 02/28/17 14:42 simvastatin [From Zocor] Allergy Unknown Verified 02/28/17 14:42 Review of Systems ROS Statement: Those systems with pertinent positive or pertinent negative responses have been documented in the HPI. ROS Other: All systems not noted in ROS Statement are negative. Past Medical History Past Medical History: Coronary Artery Disease (CAD), Heart Failure, CVA/TIA, Diabetes Mellitus, GI Bleed, Hypertension, Liver Disease, Myocardial Infarction ([place]), Renal Disease Additional Past Medical History / Comment(s): HX OF CARDIAC ARREST WITH CENTRAL LOBE BRAIN DAMAGE. pt is rt hand dominant-previous admit w/stroke-had aphasia and rt side hemiparesis, HX OF CIRRHOSIS, HX OF ESOPHAGEAL VARICIES, HX OF TORN LEFT CALF MUSCLE 2 YEARS AGO WITH WOUND (2012), USES WALKER ., INPATIENT AUG 2015 FOR LOW HGB AND RECEIVED BLOOD TRANSFUSIONS. Last Myocardial Infarction Date:: 10/1994 History of Any Multi-Drug Resistant Organisms: MRSA Date of last positivie culture/infection: 2012 MDRO Source:: leg, foot, lungs Past Surgical History: Coronary Bypass/CABG, Heart Catheterization With Stent, Hernia Repair, Orthopedic Surgery Additional Past Surgical History / Comment(s): quad bypass, bilateral carotids, SURG LEFT LEG WOUND., EGD AUG 2015 Past Anesthesia/Blood Transfusion Reactions: No Reported Reaction Additional Past Anesthesia/Blood Transfusion Reaction / Comment(s): HX OF BLOOD TRANSFUSIONS-NO PROBLEMS. Date of Last Stent Placement:: unk Past Psychological History: Anxiety, Depression Additional Psychological History / Comment(s): pt is .currently resides at [facility]. 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 they further stated that pt answers mostly yes/no to questions Smoking Status: Former smoker Past Alcohol Use History: Rare Additional Past Alcohol Use History / Comment(s): HX OF HEAVY ALCOHOL USE. QUIT AUG 2013. SMOKED A PIPE. QUIT SMOKING 1989. Past Drug Use History: None Reported - Past Family History Mother Family Medical History: Myocardial Infarction ([place]) Additional Family Medical History / Comment(s): x7 mi's Father Family Medical History: Diabetes Mellitus Additional Family Medical History / Comment(s): amp lower extremity General Exam Limitations: altered mental status General appearance: alert, in no apparent distress Head exam: Present: atraumatic, normocephalic, normal inspection Eye exam: Present: normal appearance, PERRL, EOMI. Absent: scleral icterus, conjunctival injection, periorbital swelling ENT exam: Present: normal exam, mucous membranes moist Neck exam: Present: normal inspection. Absent: tenderness, meningismus, lymphadenopathy Respiratory exam: Present: normal lung sounds bilaterally. Absent: respiratory distress, wheezes, rales, rhonchi, stridor Cardiovascular Exam: Present: regular rate, normal rhythm, normal heart sounds. Absent: systolic murmur, diastolic murmur, rubs, gallop, clicks GI/Abdominal exam: Present: soft, normal bowel sounds. Absent: distended, tenderness, guarding, rebound, rigid Extremities exam: Present: normal inspection, full ROM, normal capillary refill. Absent: tenderness, pedal edema, joint swelling, calf tenderness Back exam: Present: normal inspection Neurological exam: Present: alert, oriented X3, CN II-XII intact Psychiatric exam: Present: normal affect, normal mood Skin exam: Present: warm, dry, intact, normal color. Absent: rash Course Vital Signs 03/19/17 03/19/17 17:55 19:01 Temperature 98.1 F Pulse Rate 73 71 Respiratory 18 18 Rate Blood Pressure 175/82 187/81 O2 Sat by Pulse 98 98 Oximetry - Reevaluation(s) Reevaluation #1: 03/19/17 19:39 Patient shows no improvement in mental status time Medical Decision Making - Medical Decision Making 76 male to the ED co AMS, weakness, coming to ED for evaluation regarding altered mental status, patient's poor historian, patient found to have severe dehydration on exam as well as significant urinary tract infection. Patient will be admitted for IV hydration and IV antibiotics, monitoring of mental state - Lab Data Result diagrams: 03/19/17 18:20 03/19/17 18:20 Lab Results 03/19/17 03/19/17 03/19/17 Range/Units 18:20 18:20 18:20 WBC 6.7 (3.8-10.6) k/uL RBC 3.26 L (4.30-5.90) m/uL Hgb 8.7 L (13.0-17.5) gm/dL Hct 28.2 L (39.0-53.0) % MCV 86.4 (80.0-100.0) fL MCH 26.7 (25.0-35.0) pg MCHC 30.9 L (31.0-37.0) g/dL RDW 14.2 (11.5-15.5) % Plt Count 297 (150-450) k/uL Neutrophils % 75 % Lymphocytes % 12 % Monocytes % 7 % Eosinophils % 4 % Basophils % 1 % Neutrophils # 5.0 (1.3-7.7) k/uL Lymphocytes # 0.8 L (1.0-4.8) k/uL Monocytes # 0.5 (0-1.0) k/uL Eosinophils # 0.3 (0-0.7) k/uL Basophils # 0.1 (0-0.2) k/uL Hypochromasia Marked Poikilocytosis Moderate PT (9.0-12.0) sec INR (<1.1) APTT (22.0-30.0) sec Sodium (137-145) mmol/L Potassium (3.5-5.1) mmol/L Chloride (98-107) mmol/L Carbon Dioxide (22-30) mmol/L Anion Gap mmol/L BUN (9-20) mg/dL Creatinine (0.66-1.25) mg/dL Est GFR (MDRD) Af Amer (>60 ml/min/1.73 sqM) Est GFR (MDRD) Non-Af (>60 ml/min/1.73 sqM) Glucose (74-99) mg/dL Plasma Lactic Acid Rachid 2.0 (0.7-2.0) mmol/L Calcium (8.4-10.2) mg/dL Phosphorus (2.5-4.5) mg/dL Magnesium (1.6-2.3) mg/dL Total Bilirubin (0.2-1.3) mg/dL AST (17-59) U/L ALT (21-72) U/L Alkaline Phosphatase (38-126) U/L Ammonia <9 (<30) umol/L Total Creatine Kinase 48 L (55-170) U/L CK-MB (CK-2) 1.1 (0.0-2.4) ng/mL CK-MB (CK-2) Rel Index 2.3 Troponin I <0.012 (0.000-0.034) ng/mL Total Protein (6.3-8.2) g/dL Albumin (3.5-5.0) g/dL Urine Color Urine Appearance (Clear) Urine pH (5.0-8.0) Ur Specific Peculiar (1.001-1.035) Urine Protein (Negative) Urine Glucose (UA) (Negative) Urine Ketones (Negative) Urine Blood (Negative) Urine Nitrite (Negative) Urine Bilirubin (Negative) Urine Urobilinogen (<2.0) mg/dL Ur Leukocyte Esterase (Negative) Urine WBC (0-5) /hpf Urine WBC Clumps (None) /hpf Urine Bacteria (None) /hpf 03/19/17 03/19/17 03/19/17 Range/Units 18:20 18:20 18:20 WBC (3.8-10.6) k/uL RBC (4.30-5.90) m/uL Hgb (13.0-17.5) gm/dL Hct (39.0-53.0) % MCV (80.0-100.0) fL MCH (25.0-35.0) pg MCHC (31.0-37.0) g/dL RDW (11.5-15.5) % Plt Count (150-450) k/uL Neutrophils % % Lymphocytes % % Monocytes % % Eosinophils % % Basophils % % Neutrophils # (1.3-7.7) k/uL Lymphocytes # (1.0-4.8) k/uL Monocytes # (0-1.0) k/uL Eosinophils # (0-0.7) k/uL Basophils # (0-0.2) k/uL Hypochromasia Poikilocytosis PT 10.9 (9.0-12.0) sec INR 1.1 (<1.1) APTT 27.6 (22.0-30.0) sec Sodium 141 (137-145) mmol/L Potassium 4.9 (3.5-5.1) mmol/L Chloride 107 (98-107) mmol/L Carbon Dioxide 24 (22-30) mmol/L Anion Gap 10 mmol/L BUN 39 H (9-20) mg/dL Creatinine 2.23 H (0.66-1.25) mg/dL Est GFR (MDRD) Af Amer 35 (>60 ml/min/1.73 sqM) Est GFR (MDRD) Non-Af 29 (>60 ml/min/1.73 sqM) Glucose 203 H (74-99) mg/dL Plasma Lactic Acid Rachid (0.7-2.0) mmol/L Calcium 9.0 (8.4-10.2) mg/dL Phosphorus 4.0 (2.5-4.5) mg/dL Magnesium 2.2 (1.6-2.3) mg/dL Total Bilirubin 0.7 (0.2-1.3) mg/dL AST 27 (17-59) U/L ALT 21 (21-72) U/L Alkaline Phosphatase 132 H (38-126) U/L Ammonia (<30) umol/L Total Creatine Kinase (55-170) U/L CK-MB (CK-2) (0.0-2.4) ng/mL CK-MB (CK-2) Rel Index Troponin I (0.000-0.034) ng/mL Total Protein 6.8 (6.3-8.2) g/dL Albumin 3.3 L (3.5-5.0) g/dL Urine Color Yellow Urine Appearance Turbid (Clear) Urine pH 5.5 (5.0-8.0) Ur Specific Peculiar 1.017 (1.001-1.035) Urine Protein 1+ H (Negative) Urine Glucose (UA) 2+ H (Negative) Urine Ketones Negative (Negative) Urine Blood Small H (Negative) Urine Nitrite Negative (Negative) Urine Bilirubin Negative (Negative) Urine Urobilinogen <2.0 (<2.0) mg/dL Ur Leukocyte Esterase Large H (Negative) Urine WBC >182 H (0-5) /hpf Urine WBC Clumps Many H (None) /hpf Urine Bacteria Many H (None) /hpf Disposition Clinical Impression: Anemia, Dehydration, UTI (urinary tract infection), Altered mental status Disposition: ADMITTED IP TO THIS HOSP Condition: Fair Referrals: Rosalva Mcguire MD [Primary Care Provider] - 1-2 days
[2017-03-19 18:38] LABS: Basophils # (A) 0.1 k/uL (0-0.2); Basophils % (A) 1 %; CH 25.8; CHCM 29.8; Eosinophils # (A) 0.3 k/uL (0-0.7); Eosinophils % (A) 4 %; HCT 28.2 % (39.0-53.0); HDW 4.31; HGB 8.7 gm/dL (13.0-17.5); Hypochromasia Marked; Luc # (Auto) 0.12; Luc % (Auto) 2; Lymphocytes # (A) 0.8 k/uL (1.0-4.8); Lymphocytes % (A) 12 %; MCH 26.7 pg (25.0-35.0); MCHC 30.9 g/dL (31.0-37.0); MCV 86.4 fL (80.0-100.0); Mean Platelet Volume 7.8; Monocytes # (A) 0.5 k/uL (0-1.0); Monocytes % (A) 7 %; Neutrophils % (A) 75 %; Poikilocytosis Moderate; RBC 3.26 m/uL (4.30-5.90); RDW 14.2 % (11.5-15.5); WBC 6.7 k/uL (3.8-10.6); WBC (Perox) 6.89
[2017-03-19 18:47] LABS: Magnesium 2.2 mg/dL (1.6-2.3); Potassium 4.9 mmol/L (3.5-5.1); Total Bilirubin 0.7 mg/dL (0.2-1.3); Total Protein 6.8 g/dL (6.3-8.2)
[2017-03-19 18:54] LABS: Ammonia <9 umol/L (<30)
[2017-03-19 18:56] LABS: Appearance,Urine Turbid (Clear); Bacteria,Urine Many /hpf; Bilirubin,Urine Negative (Negative); Glucose,Urine (UA) 2+ (Negative); Ketones,Urine Negative (Negative); Leukocyte Esterase,Urine Large (Negative); Nitrite,Urine Negative (Negative); PH, Urine 5.5 (5.0-8.0); Particle Count 31847; Protein,Urine 1+ (Negative); Specific Gravity,Urine 1.017 (1.001-1.035); UA Billing (MACRO vs. MICRO) MICRO; Urobilinogen,Urine <2.0 mg/dL (<2.0); WBC,Urine >182 /hpf (0-5)
[2017-03-19 19:01] LABS: Creatine Kinase 48 U/L (55-170)
[2017-03-19 19:08] LABS: INR 1.1 (<1.1); Partial Thromboplastin Time 27.6 sec (22.0-30.0); Prothrombin Time 10.9 sec (9.0-12.0)
[2017-03-19 19:14] LABS: Creatine Kinase MB 1.1 ng/mL (0.0-2.4); Troponin I <0.012 ng/mL (0.000-0.034)
[2017-03-19] MEDS ORDERED: hydrALAZINE HCL 20 MG/ML 1 ML VIAL IVP PRN ×2 (21:31)
[2017-03-19] MEDS ORDERED: hydrALAZINE HCL 20 MG/ML 1 ML VIAL IVP STA (21:31)
[2017-03-19 22:07] LABS: Glucose,Whole Blood 141 mg/dL (75-99)
[2017-03-20 07:32] LABS: Glucose,Whole Blood 91 mg/dL (75-99)
[2017-03-20] MEDS: ENOXAPARIN 40 MG/0.4 ML SYRINGE SQ SCH (09:05)
[2017-03-20 11:56] LABS: Glucose,Whole Blood 129 mg/dL (75-99)
--- NOTE | 2017-03-20 14:11 | P.HPIM ---
History of Present Illness H&P Date: 03/20/17 Chief Complaint: Altered mental status This is a 76-year-old gentleman with a very complex past medical history noted below significant for underlying dementia who is unable to provide any significant medical history that was brought to the emergency room from a local F with altered mental status. Apparently patient has not been acting like himself recently. He was not able to participate in physical therapy for the past few days. He was evaluated in the emergency room and was noted to have evidence of underlying urinary tract infection. Patient was started on IV ceftriaxone and was admitted to the hospital for further evaluation. He does not have any specific complaints today. He denies any pain. Review of Systems Review of system: 14 points review of systems were obtained and were negative except to what were mentioned in the HPI. Past Medical History Past Medical History: Coronary Artery Disease (CAD), Heart Failure, CVA/TIA, Diabetes Mellitus, GI Bleed, Hypertension, Liver Disease, Myocardial Infarction ([place]), Renal Disease Additional Past Medical History / Comment(s): HX OF CARDIAC ARREST WITH CENTRAL LOBE BRAIN DAMAGE. pt is rt hand dominant-previous admit w/stroke-had aphasia and rt side hemiparesis, HX OF CIRRHOSIS, HX OF ESOPHAGEAL VARICIES, HX OF TORN LEFT CALF MUSCLE 2 YEARS AGO WITH WOUND (2012), USES WALKER ., INPATIENT AUG 2015 FOR LOW HGB AND RECEIVED BLOOD TRANSFUSIONS. Last Myocardial Infarction Date:: 10/1994 History of Any Multi-Drug Resistant Organisms: MRSA Date of last positivie culture/infection: 2012 MDRO Source:: leg, foot, lungs Past Surgical History: Coronary Bypass/CABG, Heart Catheterization With Stent, Hernia Repair, Orthopedic Surgery Additional Past Surgical History / Comment(s): quad bypass, bilateral carotids, SURG LEFT LEG WOUND., EGD AUG 2015 Past Anesthesia/Blood Transfusion Reactions: No Reported Reaction Additional Past Anesthesia/Blood Transfusion Reaction / Comment(s): HX OF BLOOD TRANSFUSIONS-NO PROBLEMS. Date of Last Stent Placement:: unk Past Psychological History: Anxiety, Depression Additional Psychological History / Comment(s): pt is .currently resides at [facility]. 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 they further stated that pt answers mostly yes/no to questions Smoking Status: Former smoker Past Alcohol Use History: Rare Additional Past Alcohol Use History / Comment(s): HX OF HEAVY ALCOHOL USE. QUIT AUG 2013. SMOKED A PIPE. QUIT SMOKING 1989. Past Drug Use History: None Reported - Past Family History Mother Family Medical History: Myocardial Infarction ([place]) Additional Family Medical History / Comment(s): x7 mi's Father Family Medical History: Diabetes Mellitus Additional Family Medical History / Comment(s): amp lower extremity Medications and Allergies Home Medications Medication Instructions Recorded Confirmed Type PARoxetine [Paxil] 20 mg PO DAILY 02/03/17 03/20/17 History glipiZIDE XL [Glucotrol XL] 5 mg PO DAILY 02/03/17 03/20/17 History hydrALAZINE HCL [Apresoline] 25 mg PO TID 02/28/17 03/20/17 History Apixaban [Eliquis] 2.5 mg PO BID 03/19/17 03/20/17 History Aspirin [Children's Aspirin] 81 mg PO DAILY 03/19/17 03/20/17 History Carvedilol [Coreg] 3.125 mg PO BID 03/19/17 03/20/17 History Pantoprazole [Protonix] 40 mg PO DAILY 03/19/17 03/20/17 History Allergies Allergy/AdvReac Type Severity Reaction Status Date / Time donepezil HCl [From Aricept] Allergy Unknown Verified 02/28/17 14:42 sertraline HCl [From Zoloft] Allergy Unknown Verified 02/28/17 14:42 simvastatin [From Zocor] Allergy Unknown Verified 02/28/17 14:42 Physical Exam Vitals: Vital Signs Temp Pulse Pulse Resp BP BP Pulse Ox 03/20/17 08:00 16 03/20/17 07:00 97.0 F L 68 16 140/69 96 03/19/17 23:00 97.1 F L 68 18 146/70 98 03/19/17 22:13 97.1 F L 69 18 156/70 97 03/19/17 21:44 68 16 178/86 98 03/19/17 20:33 77 16 181/86 98 03/19/17 19:55 97.7 F 67 16 178/85 98 03/19/17 19:01 71 18 187/81 98 03/19/17 17:55 98.1 F 73 18 175/82 98 Intake and Output 03/19/17 03/20/17 03/20/17 22:59 06:59 14:59 Output Total 1100 Balance -1100 Output: Urine 1100 Other: Voiding Method Indwelling Catheter Indwelling Catheter # Bowel Movements 1 Weight 82 kg 82.5 kg 82.5 kg Patient Weight 03/21/17 06:59 Weight 82.5 kg General: The patient is awake and alert, in no distress Eye: there is normal conjunctiva bilaterally. Neck: The neck is supple, there is no JVD. Cardiovascular: Normal S1-S2, no S3-S4, no murmurs. Respiratory: Lungs clear to auscultation bilaterally Gastrointestinal: Abdomen is soft, nontender Musculoskeletal: There is no pedal edema. Skin: Skin is warm and dry Results CBC & Chem 7: 03/19/17 18:20 03/19/17 18:20 Labs: Abnormal Lab Results - Last 24 Hours (Table) 03/19/17 03/19/17 03/19/17 Range/Units 18:20 18:20 18:20 RBC 3.26 L (4.30-5.90) m/uL Hgb 8.7 L (13.0-17.5) gm/dL Hct 28.2 L (39.0-53.0) % MCHC 30.9 L (31.0-37.0) g/dL Lymphocytes # 0.8 L (1.0-4.8) k/uL BUN 39 H (9-20) mg/dL Creatinine 2.23 H (0.66-1.25) mg/dL Glucose 203 H (74-99) mg/dL POC Glucose (mg/dL) (75-99) mg/dL Alkaline Phosphatase 132 H (38-126) U/L Total Creatine Kinase 48 L (55-170) U/L Albumin 3.3 L (3.5-5.0) g/dL Urine Protein (Negative) Urine Glucose (UA) (Negative) Urine Blood (Negative) Ur Leukocyte Esterase (Negative) Urine WBC (0-5) /hpf Urine WBC Clumps (None) /hpf Urine Bacteria (None) /hpf 03/19/17 03/19/17 03/20/17 Range/Units 18:20 22:04 11:53 RBC (4.30-5.90) m/uL Hgb (13.0-17.5) gm/dL Hct (39.0-53.0) % MCHC (31.0-37.0) g/dL Lymphocytes # (1.0-4.8) k/uL BUN (9-20) mg/dL Creatinine (0.66-1.25) mg/dL Glucose (74-99) mg/dL POC Glucose (mg/dL) 141 H 129 H (75-99) mg/dL Alkaline Phosphatase (38-126) U/L Total Creatine Kinase (55-170) U/L Albumin (3.5-5.0) g/dL Urine Protein 1+ H (Negative) Urine Glucose (UA) 2+ H (Negative) Urine Blood Small H (Negative) Ur Leukocyte Esterase Large H (Negative) Urine WBC >182 H (0-5) /hpf Urine WBC Clumps Many H (None) /hpf Urine Bacteria Many H (None) /hpf Thrombosis Risk Factor Assmnt - Choose All That Apply Any of the Below Risk Factors Present?: No Other Risk Factors: Yes Each Risk Factor Represents 2 Points: Age 61-74 years Other congenital or acquired thrombophilia - If yes, enter type in comment: No Thrombosis Risk Factor Assessment Total Risk Factor Score: 2 Thrombosis Risk Factor Assessment Level: Low Risk Assessment and Plan Plan: 1. Urinary tract infection, currently on IV ceftriaxone. Urine culture sent. I will consult infectious disease for further evaluation. 2. History of multifocal ischemic stroke, with residual right hemiparesis. 3. Type 2 diabetes mellitus 4. Stage IV chronic kidney disease with baseline creatinine around 2-2.5 5. 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 Coronary artery disease: Managed medically 7. Anemia of chronic disease and iron deficiency anemia
[2017-03-20] MEDS: ASPIRIN 81 MG CHEW PO SCH (15:53)
[2017-03-20] MEDS: amLODIPine 5 MG TAB PO SCH (15:53)
[2017-03-20] MEDS: hydrALAZINE HCL 25 MG TAB PO SCH (15:54)
[2017-03-20] MEDS: PARoxetine 20 MG TAB PO SCH (15:54)
[2017-03-20 17:26] LABS: Glucose,Whole Blood 149 mg/dL (75-99)
[2017-03-20] MEDS: CARVEDILOL 3.125 MG TAB PO SCH (17:27)
[2017-03-20 20:47] LABS: Glucose,Whole Blood 174 mg/dL (75-99)
[2017-03-21 06:54] LABS: Glucose,Whole Blood 75 mg/dL (75-99)
[2017-03-21] MEDS: PANTOPRAZOLE 40 MG TABLET PO SCH (08:07)
[2017-03-21] MEDS: amLODIPine 5 MG TAB PO SCH (08:07)
[2017-03-21] MEDS: hydrALAZINE HCL 25 MG TAB PO SCH ×4 (08:07→22:58)
[2017-03-21] MEDS: PARoxetine 20 MG TAB PO SCH (08:07)
[2017-03-21] MEDS: ENOXAPARIN 40 MG/0.4 ML SYRINGE SQ SCH (08:07)
[2017-03-21] MEDS: CARVEDILOL 3.125 MG TAB PO SCH ×2 (08:07→15:45)
[2017-03-21] MEDS: ASPIRIN 81 MG CHEW PO SCH (08:07)
[2017-03-21 08:17] LABS: Basophils # (A) 0.1 k/uL (0-0.2); Basophils % (A) 1 %; CH 25.5; CHCM 29.4; Eosinophils # (A) 0.3 k/uL (0-0.7); Eosinophils % (A) 6 %; HCT 27.9 % (39.0-53.0); HDW 4.42; HGB 8.2 gm/dL (13.0-17.5); Hypochromasia Marked; Luc # (Auto) 0.11; Luc % (Auto) 2; Lymphocytes # (A) 0.8 k/uL (1.0-4.8); Lymphocytes % (A) 15 %; MCH 25.5 pg (25.0-35.0); MCHC 29.4 g/dL (31.0-37.0); MCV 86.8 fL (80.0-100.0); Mean Platelet Volume 7.3; Monocytes # (A) 0.3 k/uL (0-1.0); Monocytes % (A) 6 %; Neutrophils # (A) 3.7 k/uL (1.3-7.7); Neutrophils % (A) 71 %; Poikilocytosis Moderate; RBC 3.22 m/uL (4.30-5.90); RDW 14.1 % (11.5-15.5); WBC 5.3 k/uL (3.8-10.6); WBC (Perox) 5.58
[2017-03-21 08:28] LABS: Calcium 8.4 mg/dL (8.4-10.2)
--- NOTE | 2017-03-21 08:32 | CONS ---
DATE OF CONSULTATION: DATE OF SERVICE: 03/20/2017 REASON FOR CONSULTATION: Urinary tract infection. HISTORY OF PRESENT ILLNESS: The patient is a 76-year-old male is group home resident has been sent to the ER on 03/19/2017 with mental status changes. Apparently the patient had not been acting like himself recently. He was unable to participate in physical therapy for the last few days. For the same reason the patient had been sent to the ER at [facility] for further evaluation. Patient workup did include a significantly positive UA, but his white count was not significantly elevated. The patient was started on Rocephin and admitted to hospital. I was asked to see the patient for further examination. At the time of my evaluation, patient denied any headache to me, no significant chest pain, shortness of breath or cough. No abdominal pain or any diarrhea. 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 Overall the history remains to be limited because of underlying dementia. REVIEW OF SYSTEMS: Could not be reliably obtained though the positive points have been mentioned in the HPI. PAST MEDICAL HISTORY: Significant for coronary artery disease, heart failure, CVA, TIA, diabetes, hypertension, cardiac arrest and previous history of MRSA left leg wound infection. PAST SURGICAL HISTORY: PTCA, stent placement, hernia repair, coronary artery bypass grafting, bilateral carotids. SOCIAL HISTORY: Remote history of smoking. History of heavy alcohol use, quit back in 2012. No drinking or drug use. FAMILY HISTORY: Mother with history of ND. Father with history of diabetes and amputation of lower extremity. Allergies to ARICEPT, SERTRALINE and SIMVASTATIN. Medications currently include the patient is on Norvasc, aspirin, Coreg, Rocephin, Lovenox, Glucotrol, hydralazine, Protonix, Paxil. On examination, blood pressure is 138/63 with a pulse of 73, temperature of 96.8. He is 98% on room air. General description is an elderly male, lying in bed in no distress. HEENT EXAMINATION: Slight pallor. No scleral icterus. Oral mucous membranes dry. NECK: Trachea central. There is no thyromegaly. LUNGS: Unlabored breathing. Clear to auscultation anteriorly. No wheeze or crackle. HEART: S1, S2. Regular rate and rhythm. ABDOMEN: Soft. No tenderness. No rigidity. EXTREMITIES: No edema of feet. SKIN EXAMINATION: No rashes. No masses palpable. NEUROLOGICAL: The patient is awake, alert, oriented x1. Mood and affect normal. LABS: Hemoglobin 8.7, white count 6.7, BUN of 39, creatinine 2.23. DIAGNOSTIC IMPRESSION AND PLAN: Patient admitted to hospital with mental status changes likely multifactorial with metabolic and possible component of urinary tract infection, likely from enteric gram-negative as the patient has no other clinical focus of infection. Lungs were clear to auscultation. Abdomen was soft to palpation and no significant cellulitis or joint swelling was noticed. PLAN: 1. Rocephin 1 gram IV piggyback daily. 2. Gentle hydration. 3. Will follow up on the clinical condition as well as cultures to further adjust the medication if needed. Family was present at the bedside. Their questions were answered. KHALIF
--- NOTE | 2017-03-21 11:29 | P.PN ---
Subjective No events overnight Objective - Vital Signs Vital signs: Vital Signs Temp 97.6 F 03/21/17 07:00 Pulse 81 03/21/17 07:00 Resp 20 03/21/17 07:00 BP 142/70 03/21/17 07:00 Pulse Ox 97 03/21/17 07:00 Intake & Output 03/20/17 03/21/17 03/21/17 18:59 06:59 18:59 Intake Total 100 Output Total 200 700 Balance -200 -600 Weight 82.5 kg 67.5 kg Intake: Oral 100 Output: Urine 200 700 Other: Voiding Method Indwelling Catheter Indwelling Catheter Indwelling Catheter # Voids 0 # Bowel Movements 0 - Exam General: The patient is awake and alert, in no distress Eye: there is normal conjunctiva bilaterally. Neck: The neck is supple, there is no JVD. Cardiovascular: Normal S1-S2, no S3-S4, no murmurs. Respiratory: Lungs clear to auscultation bilaterally Gastrointestinal: Abdomen is soft, nontender Musculoskeletal: There is no pedal edema. Neurological:. Speech is normal. Skin: Skin is warm and dry - Labs CBC & Chem 7: 03/21/17 07:59 03/21/17 07:59 Labs: Abnormal Lab Results - Last 24 Hours (Table) 03/20/17 03/20/17 03/20/17 Range/Units 11:53 17:12 20:45 RBC (4.30-5.90) m/uL Hgb (13.0-17.5) gm/dL Hct (39.0-53.0) % MCHC (31.0-37.0) g/dL Lymphocytes # (1.0-4.8) k/uL Chloride (98-107) mmol/L BUN (9-20) mg/dL Creatinine (0.66-1.25) mg/dL POC Glucose (mg/dL) 129 H 149 H 174 H (75-99) mg/dL 03/21/17 03/21/17 Range/Units 07:59 07:59 RBC 3.22 L (4.30-5.90) m/uL Hgb 8.2 L (13.0-17.5) gm/dL Hct 27.9 L (39.0-53.0) % MCHC 29.4 L (31.0-37.0) g/dL Lymphocytes # 0.8 L (1.0-4.8) k/uL Chloride 112 H (98-107) mmol/L BUN 25 H (9-20) mg/dL Creatinine 1.73 H (0.66-1.25) mg/dL POC Glucose (mg/dL) (75-99) mg/dL Assessment and Plan Plan: 1. Urinary tract infection, currently on IV ceftriaxone. Urine culture pending . I will consult infectious disease for further evaluation. 2. History of multifocal ischemic stroke, with residual right hemiparesis. 3. Type 2 diabetes mellitus 4. Stage IV chronic kidney disease with baseline creatinine around 2-2.5 5. 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 Coronary artery disease: Managed medically 7. Anemia of chronic disease and iron deficiency anemia
[2017-03-21 11:53] LABS: Glucose,Whole Blood 116 mg/dL (75-99)
[2017-03-21 17:07] LABS: Glucose,Whole Blood 206 mg/dL (75-99)
[2017-03-21 21:01] LABS: Glucose,Whole Blood 169 mg/dL (75-99)
--- NOTE | 2017-03-21 22:43 | PN ---
DATE OF SERVICE: 03/21/2017 REASON FOR FOLLOWUP: Urinary tract infection. INTERVAL HISTORY: The patient is more awake, alert, breathing comfortably. Denies significant chest or cough. No abdominal pain and no diarrhea. On examination, blood pressure is 100/48 with a pulse of 67, temperature afebrile. He is 98% on room air. General description is an elderly male lying in bed in no distress. RESPIRATORY SYSTEM: Unlabored breathing. Clear to auscultation anteriorly. HEART: S1, S2. Regular rate and rhythm. LAB: Hemoglobin 8.4, hematocrit 25.3. BUN of 25, creatinine is 1.73. Cultures are currently pending. DIAGNOSTIC IMPRESSION: Patient admitted to hospital with mental status changes with significantly positive urinalysis, likely gram-negative infection. PLAN: Rocephin 1 g to continue while waiting for the cultures to finalize. Continue supportive care.
[2017-03-22 07:42] LABS: Glucose,Whole Blood 100 mg/dL (75-99)
[2017-03-22 08:02] LABS: Basophils % (A) 1 %; CH 25.4; CHCM 29.7; Eosinophils # (A) 0.2 k/uL (0-0.7); Eosinophils % (A) 4 %; HCT 26.6 % (39.0-53.0); HDW 4.42; Hypochromasia Marked; Luc # (Auto) 0.16; Luc % (Auto) 3; Lymphocytes # (A) 0.6 k/uL (1.0-4.8); Lymphocytes % (A) 11 %; MCH 25.6 pg (25.0-35.0); MCV 85.4 fL (80.0-100.0); Mean Platelet Volume 7.4; Monocytes # (A) 0.4 k/uL (0-1.0); Monocytes % (A) 8 %; Neutrophils # (A) 4.1 k/uL (1.3-7.7); Neutrophils % (A) 75 %; Poikilocytosis Moderate; RBC 3.12 m/uL (4.30-5.90); RDW 13.9 % (11.5-15.5); WBC 5.5 k/uL (3.8-10.6)
[2017-03-22 08:41] LABS: Calcium 8.3 mg/dL (8.4-10.2); Potassium 4.1 mmol/L (3.5-5.1)
[2017-03-22] MEDS: CARVEDILOL 3.125 MG TAB PO SCH ×2 (09:55→18:40)
[2017-03-22] MEDS: amLODIPine 5 MG TAB PO SCH (09:55)
[2017-03-22] MEDS: PARoxetine 20 MG TAB PO SCH (09:55)
[2017-03-22] MEDS: PANTOPRAZOLE 40 MG TABLET PO SCH (09:55)
[2017-03-22] MEDS: hydrALAZINE HCL 25 MG TAB PO SCH ×3 (09:55→23:17)
[2017-03-22] MEDS: ENOXAPARIN 40 MG/0.4 ML SYRINGE SQ SCH (09:55)
[2017-03-22] MEDS: ASPIRIN 81 MG CHEW PO SCH (09:55)
--- NOTE | 2017-03-22 11:50 | P.PN ---
Subjective No events overnight Objective - Vital Signs Vital signs: Vital Signs Temp 98.5 F 03/22/17 07:00 Pulse 78 03/22/17 07:00 Resp 18 03/22/17 07:00 BP 139/72 03/22/17 07:00 Pulse Ox 97 03/22/17 07:00 Intake & Output 03/21/17 03/22/17 03/22/17 18:59 06:59 18:59 Intake Total 50 120 240 Output Total 500 150 Balance -450 -30 240 Weight 67 kg Intake: IV 50 [id number] 1,000 mg In 50 Sodium Chloride 0.9% 50 ml @ 50 mls/hr IVPB Q24H REPLACED BY [facility] Rx#:[id number] Oral 120 240 Output: Urine 500 150 Other: Voiding Method Indwelling Catheter Indwelling Catheter # Voids 400 - Exam General: The patient is awake and alert, in no distress Eye: there is normal conjunctiva bilaterally. Neck: The neck is supple, there is no JVD. Cardiovascular: Normal S1-S2, no S3-S4, no murmurs. Respiratory: Lungs clear to auscultation bilaterally Gastrointestinal: Abdomen is soft, nontender Musculoskeletal: There is no pedal edema. Neurological:. Speech is normal. Skin: Skin is warm and dry - Labs CBC & Chem 7: 03/22/17 07:37 03/22/17 07:37 Labs: Abnormal Lab Results - Last 24 Hours (Table) 03/21/17 03/21/17 03/21/17 Range/Units 11:51 17:06 21:00 RBC (4.30-5.90) m/uL Hgb (13.0-17.5) gm/dL Hct (39.0-53.0) % MCHC (31.0-37.0) g/dL Lymphocytes # (1.0-4.8) k/uL Chloride (98-107) mmol/L BUN (9-20) mg/dL Creatinine (0.66-1.25) mg/dL POC Glucose (mg/dL) 116 H 206 H 169 H (75-99) mg/dL Calcium (8.4-10.2) mg/dL 03/22/17 03/22/17 03/22/17 Range/Units 07:16 07:37 07:37 RBC 3.12 L (4.30-5.90) m/uL Hgb 8.0 L (13.0-17.5) gm/dL Hct 26.6 L (39.0-53.0) % MCHC 30.0 L (31.0-37.0) g/dL Lymphocytes # 0.6 L (1.0-4.8) k/uL Chloride 110 H (98-107) mmol/L BUN 24 H (9-20) mg/dL Creatinine 1.65 H (0.66-1.25) mg/dL POC Glucose (mg/dL) 100 H (75-99) mg/dL Calcium 8.3 L (8.4-10.2) mg/dL Microbiology - Last 24 Hours (Table) 03/21/17 11:10 Urine Culture - Preliminary Urine,Catheterized Assessment and Plan Plan: 1. Urinary tract infection, currently on IV ceftriaxone. Urine culture pending. Infectious disease following 2. History of multifocal ischemic stroke, with residual right hemiparesis. 3. Type 2 diabetes mellitus 4. Stage IV chronic kidney disease with baseline creatinine around 2-2.5 5. 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 Coronary artery disease: Managed medically 7. Anemia of chronic disease and iron deficiency anemia Awaiting placement on Friday given iday weekend
[2017-03-22 12:13] LABS: Glucose,Whole Blood 227 mg/dL (75-99)
[2017-03-22 17:17] LABS: Glucose,Whole Blood 226 mg/dL (75-99)
[2017-03-22 20:59] LABS: Glucose,Whole Blood 193 mg/dL (75-99)
[2017-03-23 07:05] LABS: Glucose,Whole Blood 121 mg/dL (75-99)
[2017-03-23 08:28] LABS: Basophils % (A) 1 %; CH 25.5; CHCM 29.6; Eosinophils # (A) 0.2 k/uL (0-0.7); Eosinophils % (A) 4 %; HCT 25.3 % (39.0-53.0); HDW 4.35; HGB 7.5 gm/dL (13.0-17.5); Hypochromasia Marked; Luc # (Auto) 0.19; Luc % (Auto) 4; Lymphocytes # (A) 0.7 k/uL (1.0-4.8); Lymphocytes % (A) 15 %; MCH 25.6 pg (25.0-35.0); MCHC 29.7 g/dL (31.0-37.0); MCV 86.2 fL (80.0-100.0); Mean Platelet Volume 7.5; Monocytes # (A) 0.5 k/uL (0-1.0); Monocytes % (A) 10 %; Neutrophils # (A) 3.1 k/uL (1.3-7.7); Neutrophils % (A) 67 %; Poikilocytosis Moderate; RBC 2.94 m/uL (4.30-5.90); RDW 14.1 % (11.5-15.5); WBC 4.7 k/uL (3.8-10.6); WBC (Perox) 5.02
[2017-03-23 08:36] LABS: Calcium 8.9 mg/dL (8.4-10.2); Potassium 3.8 mmol/L (3.5-5.1)
[2017-03-23] MEDS: PARoxetine 20 MG TAB PO SCH (09:01)
[2017-03-23] MEDS: PANTOPRAZOLE 40 MG TABLET PO SCH (09:01)
[2017-03-23] MEDS: ASPIRIN 81 MG CHEW PO SCH (09:01)
[2017-03-23] MEDS: ENOXAPARIN 40 MG/0.4 ML SYRINGE SQ SCH (09:02)
[2017-03-23] MEDS: CARVEDILOL 3.125 MG TAB PO SCH ×2 (09:02→17:03)
[2017-03-23] MEDS: hydrALAZINE HCL 25 MG TAB PO SCH ×3 (09:02→21:21)
[2017-03-23] MEDS: amLODIPine 5 MG TAB PO SCH (09:02)
[2017-03-23 12:10] LABS: Glucose,Whole Blood 205 mg/dL (75-99)
--- NOTE | 2017-03-23 12:51 | PN ---
DATE OF SERVICE: 03/22/2017 Reason for follow-up is urinary tract infection. INTERVAL HISTORY: The patient has been breathing comfortably. Denies significant chest pain, shortness of breath. Occasional cough. No abdominal pain or diarrhea. On examination, blood pressure 127/70 with a pulse of 91, temperature 98.3. He is 98% on room air. General description is an elderly male, lying in bed in no distress. RESPIRATORY SYSTEM: Unlabored breathing. Clear to auscultation anteriorly. HEART: S1, S2. Regular rate and rhythm. ABDOMEN: Soft, no tenderness. LABS: Hemoglobin 8, white count 5.5 with a BUN of 24, creatinine 1.65. Urine showing gram-negative with ID sensitivity is pending. DIAGNOSTIC IMPRESSION AND PLAN: Patient with gram-negative urinary tract infection. Patient seems to be responding to the oral Rocephin. That will be continued, adjusting it further based on culture report. Continue supportive care.
--- NOTE | 2017-03-23 14:17 | P.PN ---
Subjective No events overnight Objective - Vital Signs Vital signs: Vital Signs Temp 98.4 F 03/23/17 07:00 Pulse 82 03/23/17 07:00 Resp 16 03/23/17 07:00 BP 140/68 03/23/17 07:00 Pulse Ox 98 03/23/17 07:00 Intake & Output 03/22/17 03/23/17 03/23/17 18:59 06:59 18:59 Intake Total 480 Output Total 800 550 Balance -320 -550 Weight 66.5 kg Intake: Oral 480 Output: Urine 800 550 Other: Voiding Method Indwelling Catheter Indwelling Catheter Indwelling Catheter # Bowel Movements 1 - Exam General: The patient is awake and alert, in no distress Eye: there is normal conjunctiva bilaterally. Neck: The neck is supple, there is no JVD. Cardiovascular: Normal S1-S2, no S3-S4, no murmurs. Respiratory: Lungs clear to auscultation bilaterally Gastrointestinal: Abdomen is soft, nontender Musculoskeletal: There is no pedal edema. Neurological:. Speech is normal. Skin: Skin is warm and dry - Labs CBC & Chem 7: 03/23/17 07:53 03/23/17 07:53 Labs: Abnormal Lab Results - Last 24 Hours (Table) 03/22/17 03/22/17 03/23/17 Range/Units 17:14 20:56 07:03 RBC (4.30-5.90) m/uL Hgb (13.0-17.5) gm/dL Hct (39.0-53.0) % MCHC (31.0-37.0) g/dL Lymphocytes # (1.0-4.8) k/uL Chloride (98-107) mmol/L BUN (9-20) mg/dL Creatinine (0.66-1.25) mg/dL Glucose (74-99) mg/dL POC Glucose (mg/dL) 226 H 193 H 121 H (75-99) mg/dL 03/23/17 03/23/17 03/23/17 Range/Units 07:53 07:53 12:09 RBC 2.94 L (4.30-5.90) m/uL Hgb 7.5 L (13.0-17.5) gm/dL Hct 25.3 L (39.0-53.0) % MCHC 29.7 L (31.0-37.0) g/dL Lymphocytes # 0.7 L (1.0-4.8) k/uL Chloride 110 H (98-107) mmol/L BUN 27 H (9-20) mg/dL Creatinine 1.61 H (0.66-1.25) mg/dL Glucose 116 H (74-99) mg/dL POC Glucose (mg/dL) 205 H (75-99) mg/dL Microbiology - Last 24 Hours (Table) 03/21/17 11:10 Urine Culture - Final Urine,Catheterized Klebsiella pneumoniae Assessment and Plan Plan: 1. Urinary tract infection, currently on IV ceftriaxone. Urine culture pending. Infectious disease following 2. History of multifocal ischemic stroke, with residual right hemiparesis. 3. Type 2 diabetes mellitus 4. Stage IV chronic kidney disease with baseline creatinine around 2-2.5 5. 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 Coronary artery disease: Managed medically 7. Anemia of chronic disease and iron deficiency anemia Awaiting placement on Friday given holiday weekend
[2017-03-23 17:09] LABS: Glucose,Whole Blood 189 mg/dL (75-99)
[2017-03-23 21:04] LABS: Glucose,Whole Blood 265 mg/dL (75-99)
[2017-03-23] MEDS: HYDROcodone/APAP 5-325MG 1 EACH TAB PO PRN (21:21)
[2017-03-24 06:51] LABS: Glucose,Whole Blood 94 mg/dL (75-99)
[2017-03-24 07:41] LABS: Basophils % (A) 1 %; CH 25.1; CHCM 29.1; Eosinophils # (A) 0.2 k/uL (0-0.7); Eosinophils % (A) 4 %; HCT 25.1 % (39.0-53.0); HDW 4.37; HGB 7.4 gm/dL (13.0-17.5); Hypochromasia Marked; Luc # (Auto) 0.19; Luc % (Auto) 3; Lymphocytes # (A) 0.8 k/uL (1.0-4.8); Lymphocytes % (A) 14 %; MCH 25.5 pg (25.0-35.0); MCHC 29.5 g/dL (31.0-37.0); MCV 86.2 fL (80.0-100.0); Mean Platelet Volume 7.2; Monocytes # (A) 0.6 k/uL (0-1.0); Monocytes % (A) 10 %; Neutrophils # (A) 3.8 k/uL (1.3-7.7); Neutrophils % (A) 68 %; Poikilocytosis Moderate; RBC 2.91 m/uL (4.30-5.90); WBC 5.6 k/uL (3.8-10.6); WBC (Perox) 5.96
[2017-03-24 07:44] LABS: Calcium 8.9 mg/dL (8.4-10.2); Potassium 3.8 mmol/L (3.5-5.1)
[2017-03-24] MEDS: ENOXAPARIN 40 MG/0.4 ML SYRINGE SQ SCH (08:43)
[2017-03-24] MEDS: hydrALAZINE HCL 25 MG TAB PO SCH ×3 (08:43→22:37)
[2017-03-24] MEDS: PARoxetine 20 MG TAB PO SCH (08:43)
[2017-03-24] MEDS: amLODIPine 5 MG TAB PO SCH (08:43)
[2017-03-24] MEDS: ASPIRIN 81 MG CHEW PO SCH (08:43)
[2017-03-24] MEDS: PANTOPRAZOLE 40 MG TABLET PO SCH (08:43)
[2017-03-24] MEDS: CARVEDILOL 3.125 MG TAB PO SCH ×2 (08:43→18:05)
[2017-03-24] MEDS: HYDROcodone/APAP 5-325MG 1 EACH TAB PO PRN ×2 (08:44→18:06)
--- NOTE | 2017-03-24 11:26 | PN ---
DATE OF SERVICE: 03/23/2017 Reason for follow-up is urinary tract infection. INTERVAL HISTORY: The patient is afebrile. He has been breathing comfortably. Does not seem to be in any distress. No nausea. No vomiting. On examination, blood pressure is 138/71 with a pulse of 84, temperature 97.9. He is 98% on room air. General description is an elderly male lying in bed in no distress. RESPIRATORY SYSTEM: Unlabored breathing. Clear to auscultation anteriorly. HEART: S1, S2. Regular rate and rhythm. ABDOMEN: Soft. No tenderness. LABS: Hemoglobin is 7.5, white count of 4.7 with a BUN of 27 and creatinine 1.61. Urine with Klebsiella with ( ) sensitive pathogen. DIAGNOSTIC IMPRESSION AND PLAN: Patient with Klebsiella urinary tract infection overall responding to the Rocephin. Plan to finish therapy with p.o. Cipro 500 mg twice a day for another 7 days to finish the course of therapy. Continue supportive care.
[2017-03-24 12:12] LABS: Glucose,Whole Blood 200 mg/dL (75-99)
--- NOTE | 2017-03-24 14:24 | P.PN ---
Subjective No events overnight Objective - Vital Signs Vital signs: Vital Signs Temp 97.0 F L 03/24/17 07:00 Pulse 85 03/24/17 07:00 Resp 16 03/24/17 08:00 BP 130/64 03/24/17 07:00 Pulse Ox 97 03/24/17 08:07 Intake & Output 03/23/17 03/24/17 03/24/17 18:59 06:59 18:59 Intake Total 240 500 Output Total 450 1200 Balance -210 -700 Weight 66.5 kg Intake: Oral 240 500 Output: Urine 450 1200 Uretheral ([facility]) 600 Stool 0 Other: Voiding Method Indwelling Catheter Indwelling Catheter Indwelling Catheter - Exam General: The patient is awake and alert, in no distress Eye: there is normal conjunctiva bilaterally. Neck: The neck is supple, there is no JVD. Cardiovascular: Normal S1-S2, no S3-S4, no murmurs. Respiratory: Lungs clear to auscultation bilaterally Gastrointestinal: Abdomen is soft, nontender Musculoskeletal: There is no pedal edema. Neurological:. Speech is normal. Skin: Skin is warm and dry - Labs CBC & Chem 7: 03/24/17 06:56 03/24/17 06:56 Labs: Abnormal Lab Results - Last 24 Hours (Table) 03/23/17 03/23/17 03/24/17 Range/Units 17:06 21:00 06:56 RBC 2.91 L (4.30-5.90) m/uL Hgb 7.4 L (13.0-17.5) gm/dL Hct 25.1 L (39.0-53.0) % MCHC 29.5 L (31.0-37.0) g/dL Lymphocytes # 0.8 L (1.0-4.8) k/uL Chloride (98-107) mmol/L BUN (9-20) mg/dL Creatinine (0.66-1.25) mg/dL POC Glucose (mg/dL) 189 H 265 H (75-99) mg/dL 03/24/17 03/24/17 Range/Units 06:56 12:11 RBC (4.30-5.90) m/uL Hgb (13.0-17.5) gm/dL Hct (39.0-53.0) % MCHC (31.0-37.0) g/dL Lymphocytes # (1.0-4.8) k/uL Chloride 110 H (98-107) mmol/L BUN 28 H (9-20) mg/dL Creatinine 1.66 H (0.66-1.25) mg/dL POC Glucose (mg/dL) 200 H (75-99) mg/dL Assessment and Plan Plan: 1. Urinary tract infection, currently on IV ceftriaxone. Urine culture pending. Infectious disease following 2. History of multifocal ischemic stroke, with residual right hemiparesis. 3. Type 2 diabetes mellitus 4. Stage IV chronic kidney disease with baseline creatinine around 2-2.5 5. 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 Coronary artery disease: Managed medically 7. Anemia of chronic disease and iron deficiency anemia Awaiting placement on Friday given weekend
[2017-03-24 17:12] LABS: Glucose,Whole Blood 211 mg/dL (75-99)
[2017-03-24 21:07] LABS: Glucose,Whole Blood 164 mg/dL (75-99)
[2017-03-25 06:45] LABS: Glucose,Whole Blood 95 mg/dL (75-99)
[2017-03-25] MEDS: PARoxetine 20 MG TAB PO SCH (08:30)
[2017-03-25] MEDS: ASPIRIN 81 MG CHEW PO SCH (08:30)
[2017-03-25] MEDS: CARVEDILOL 3.125 MG TAB PO SCH ×2 (08:30→17:50)
[2017-03-25] MEDS: ENOXAPARIN 40 MG/0.4 ML SYRINGE SQ SCH (08:30)
[2017-03-25] MEDS: amLODIPine 5 MG TAB PO SCH (08:30)
[2017-03-25] MEDS: PANTOPRAZOLE 40 MG TABLET PO SCH (08:30)
[2017-03-25] MEDS: hydrALAZINE HCL 25 MG TAB PO SCH ×3 (08:31→22:03)
[2017-03-25] MEDS: HYDROcodone/APAP 5-325MG 1 EACH TAB PO PRN ×2 (08:39→22:03)
[2017-03-25 09:06] LABS: Calcium 9.1 mg/dL (8.4-10.2)
[2017-03-25 09:35] LABS: Basophils # (A) 0.1 k/uL (0-0.2); Basophils % (A) 1 %; CH 25.3; CHCM 28.9; Eosinophils # (A) 0.3 k/uL (0-0.7); Eosinophils % (A) 5 %; HCT 26.6 % (39.0-53.0); HDW 4.22; HGB 7.7 gm/dL (13.0-17.5); Hypochromasia Marked; Luc # (Auto) 0.15; Luc % (Auto) 2; Lymphocytes # (A) 0.7 k/uL (1.0-4.8); Lymphocytes % (A) 11 %; MCH 25.2 pg (25.0-35.0); MCHC 28.8 g/dL (31.0-37.0); MCV 87.5 fL (80.0-100.0); Mean Platelet Volume 7.3; Monocytes # (A) 0.5 k/uL (0-1.0); Monocytes % (A) 7 %; Neutrophils # (A) 4.7 k/uL (1.3-7.7); Neutrophils % (A) 73 %; Poikilocytosis Moderate; RBC 3.05 m/uL (4.30-5.90); RDW 14.4 % (11.5-15.5); WBC 6.3 k/uL (3.8-10.6); WBC (Perox) 6.45
--- NOTE | 2017-03-25 10:00 | PN ---
DATE OF SERVICE: 03/24/2017 REASON FOR FOLLOWUP: Urinary tract infection, Klebsiella. INTERVAL HISTORY: The patient is afebrile. He is awake, alert, breathing comfortably. Denies significant chest or cough. No abdominal pain or diarrhea. On examination, blood pressure 141/57, pulse of 74, temperature 97, he is 97% on room air. GENERAL DESCRIPTION: Elderly male lying in bed in no distress. RESPIRATORY SYSTEM: Unlabored breathing. Clear to auscultation anteriorly. HEART: S1, S2. Regular rate and rhythm. ABDOMEN: Soft. No tenderness. LABS: Hemoglobin is 7.4, white count 5.6 with a BUN of 28, creatinine 1.66. DIAGNOSTIC IMPRESSION AND PLAN: Patient with Klebsiella urinary tract infection. Patient has had overall improvement with Rocephin. Plan to finish therapy with p.o. Cipro for another 5 to 7 days. Continue supportive care.
[2017-03-25 11:27] LABS: Glucose,Whole Blood 173 mg/dL (75-99)
--- NOTE | 2017-03-25 11:44 | P.PN ---
Subjective Patient is doing well today. Nursing staff noticed significant swelling involving his right hand. Patient had a brace on the right forearm and wrist for unclear reason. There is no IV inserted in the arm. There is no evidence of DVT as the swelling is limited to the hand. There is strong and palpable right radialis pulse. Objective - Vital Signs Vital signs: Vital Signs Temp 96.6 F L 03/25/17 07:00 Pulse 71 03/25/17 07:00 Resp 20 03/25/17 07:00 BP 144/72 03/25/17 07:00 Pulse Ox 96 03/25/17 07:00 Intake & Output 03/24/17 03/25/17 03/25/17 18:59 06:59 18:59 Intake Total 400 Output Total 0 2400 Balance 0 -2000 Weight 66.5 kg Intake: Oral 400 Output: Urine 2400 Uretheral ([facility]) 1200 Stool 0 Other: Voiding Method Indwelling Catheter Indwelling Catheter # Voids 0 # Bowel Movements 0 - Exam General: The patient is awake and alert, in no distress Eye: there is normal conjunctiva bilaterally. Neck: The neck is supple, there is no JVD. Cardiovascular: Normal S1-S2, no S3-S4, no murmurs. Respiratory: Lungs clear to auscultation bilaterally Gastrointestinal: Abdomen is soft, nontender Musculoskeletal: There is no pedal edema. Neurological:. Speech is normal. Skin: Skin is warm and dry - Labs CBC & Chem 7: 03/25/17 08:23 03/25/17 08:23 Labs: Abnormal Lab Results - Last 24 Hours (Table) 03/24/17 03/24/17 03/24/17 Range/Units 12:11 17:10 20:58 RBC (4.30-5.90) m/uL Hgb (13.0-17.5) gm/dL Hct (39.0-53.0) % MCHC (31.0-37.0) g/dL Lymphocytes # (1.0-4.8) k/uL Chloride (98-107) mmol/L BUN (9-20) mg/dL Creatinine (0.66-1.25) mg/dL Glucose (74-99) mg/dL POC Glucose (mg/dL) 200 H 211 H 164 H (75-99) mg/dL 03/25/17 03/25/1717 Range/Units 08:23 08:23 11:24 RBC 3.05 L (4.30-5.90) m/uL Hgb 7.7 L (13.0-17.5) gm/dL Hct 26.6 L (39.0-53.0) % MCHC 28.8 L (31.0-37.0) g/dL Lymphocytes # 0.7 L (1.0-4.8) k/uL Chloride 108 H (98-107) mmol/L BUN 29 H (9-20) mg/dL Creatinine 1.76 H (0.66-1.25) mg/dL Glucose 106 H (74-99) mg/dL POC Glucose (mg/dL) 173 H (75-99) mg/dL Assessment and Plan Plan: 1. Urinary tract infection, currently on IV ceftriaxone. Urine culture pending. Infectious disease following 2. History of multifocal ischemic stroke, with residual right hemiparesis. 3. Type 2 diabetes mellitus 4. Stage IV chronic kidney disease with baseline creatinine around 2-2.5 5. 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 Coronary artery disease: Managed medically 7. Anemia of chronic disease and iron deficiency anemia Awaiting placement. Patient should be enrolled in hospice. Awaiting discussion with his by social work.
--- NOTE | 2017-03-25 16:43 | PN ---
DATE OF SERVICE: 03/25/2017 Reason for follow-up is Klebsiella urinary tract infection. INTERVAL HISTORY: The patient is afebrile. He is currently breathing comfortably. Denies significant chest pain or shortness of breath. No cough. No abdominal pain. On examination, blood pressure 144/72 with a pulse of 71, temperature 96.6. He is 96% on room air. General description is an elderly male, up in the bed in no distress. RESPIRATORY SYSTEM: Unlabored breathing. Clear to auscultation anteriorly. HEART: S1, S2. Regular rate and rhythm. ABDOMEN: Soft. No tenderness. LABS: White count normal at 6.3. DIAGNOSTIC IMPRESSION AND PLAN: Patient with Klebsiella urinary tract infection, overall improvement on Rocephin. Plan to finish therapy with p.o. Cipro for another 7 days. Continue supportive care.
[2017-03-25 17:04] LABS: Glucose,Whole Blood 144 mg/dL (75-99)
[2017-03-25 21:35] LABS: Glucose,Whole Blood 130 mg/dL (75-99)
[2017-03-26 07:05] LABS: Glucose,Whole Blood 92 mg/dL (75-99)
[2017-03-26] MEDS: CARVEDILOL 3.125 MG TAB PO SCH ×2 (09:37→17:33)
[2017-03-26] MEDS: ENOXAPARIN 40 MG/0.4 ML SYRINGE SQ SCH (09:37)
[2017-03-26] MEDS: amLODIPine 5 MG TAB PO SCH (09:37)
[2017-03-26] MEDS: hydrALAZINE HCL 25 MG TAB PO SCH ×3 (09:37→22:07)
[2017-03-26] MEDS: PANTOPRAZOLE 40 MG TABLET PO SCH (09:38)
[2017-03-26] MEDS: ASPIRIN 81 MG CHEW PO SCH (09:38)
[2017-03-26] MEDS: PARoxetine 20 MG TAB PO SCH (09:38)
--- NOTE | 2017-03-26 11:24 | P.DS ---
Providers Date of admission: 03/19/17 20:39 Expected date of discharge: 03/26/17 Attending physician: Rosalva Mcguire Consults: 03/20/17 14:07 Consult Physician Routine Consulting Provider: Cale Kuo Consult Reason/Comments: UTI Do you want consulting provider notified?: Yes Primary care physician: [facility] Course: This is a 76-year-old gentleman with past medical history noted below who is currently being discharged on hospice care to the hospice house. Below is a list of his medical problems. 1. Urinary tract infection, finished 5 days of IV ceftriaxone 2. History of multifocal ischemic stroke, with residual right hemiparesis. 3. Type 2 diabetes mellitus 4. Stage IV chronic kidney disease with baseline creatinine around 2-2.5 5. 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 Coronary artery disease: Managed medically 7. Anemia of chronic disease and iron deficiency anemia Patient Condition at Discharge: Fair Plan - Discharge Summary New Discharge Prescriptions: Continue RX: glipiZIDE XL [Glucotrol XL] 5 mg PO DAILY RX: PARoxetine [Paxil] 20 mg PO DAILY RX: amLODIPine [Norvasc] 5 mg PO DAILY #30 tab RX: hydrALAZINE HCL [Apresoline] 25 mg PO TID RX: Pantoprazole [Protonix] 40 mg PO DAILY RX: Carvedilol [Coreg] 3.125 mg PO BID RX: Aspirin [Children's Aspirin] 81 mg PO DAILY Discontinued Apixaban [Eliquis] 2.5 mg PO BID Discharge Medication List RX: PARoxetine [Paxil] 20 mg PO DAILY 02/03/17 [History] RX: glipiZIDE XL [Glucotrol XL] 5 mg PO DAILY 02/03/17 [History] RX: amLODIPine [Norvasc] 5 mg PO DAILY #30 tab 02/10/17 [Rx] RX: hydrALAZINE HCL [Apresoline] 25 mg PO TID 02/28/17 [History] RX: Aspirin [Children's Aspirin] 81 mg PO DAILY 03/19/17 [History] RX: Carvedilol [Coreg] 3.125 mg PO BID 03/19/17 [History] RX: Pantoprazole [Protonix] 40 mg PO DAILY 03/19/17 [History] Patient Instructions/Handouts: Heart Failure (DC) Discharge Disposition: DISCH TO HOSPICE MED FACILTY
[2017-03-26 11:37] LABS: Glucose,Whole Blood 148 mg/dL (75-99)
[2017-03-26 13:40] VITALS: BMI 19.8
--- NOTE | 2017-03-26 14:55 | PN ---
DATE OF SERVICE: 03/26/2017 Reason for followup is urinary tract infection with Klebsiella. INTERVAL HISTORY: The patient is afebrile. He has been breathing comfortably. Denies significant chest pain, cough and no abdominal pain. On examination, blood pressure 134/62 with a pulse of 70, temperature 98.5. He is 95% on room air. General description is an elderly male, lying in bed in no distress. RESPIRATORY SYSTEM: Unlabored breathing. Clear to auscultation anteriorly. HEART: S1, S2, regular rate and rhythm. ABDOMEN: Soft, no tenderness. DIAGNOSTIC IMPRESSION AND PLAN: Patient with Klebsiella urinary tract infection that has been adequately treated. Patient received about 10 days of antibiotic this should be enough. Continue supportive care. MTDD
[2017-03-26] MEDS: HYDROcodone/APAP 5-325MG 1 EACH TAB PO PRN (15:36)
[2017-03-26 17:24] LABS: Glucose,Whole Blood 132 mg/dL (75-99)
[2017-03-26 21:24] LABS: Glucose,Whole Blood 102 mg/dL (75-99)
[2017-03-27 07:17] LABS: Glucose,Whole Blood 109 mg/dL (75-99)
[2017-03-27 07:43] VITALS: BP 109/64; PULSE 73; RESP 19; TEMP 97.5
[2017-03-27] MEDS: PARoxetine 20 MG TAB PO SCH (07:54)
[2017-03-27] MEDS: PANTOPRAZOLE 40 MG TABLET PO SCH (07:54)
[2017-03-27] MEDS: hydrALAZINE HCL 25 MG TAB PO SCH (07:54)
[2017-03-27] MEDS: amLODIPine 5 MG TAB PO SCH (07:54)
[2017-03-27] MEDS: CARVEDILOL 3.125 MG TAB PO SCH (07:54)
[2017-03-27] MEDS: ASPIRIN 81 MG CHEW PO SCH (07:55)
[2017-03-27] MEDS: ENOXAPARIN 40 MG/0.4 ML SYRINGE SQ SCH (07:55)
[2017-03-27] MEDS: HYDROcodone/APAP 5-325MG 1 EACH TAB PO PRN (08:18)
--- NOTE | 2017-03-27 11:48 | P.PN ---
Progress Note - Text Patient was not discharged yesterday awaiting approval from extended care facility. Please refer to my discharge summary dated 03/26/2017 for details about this hospitalization. Plan to discharge patient today to [facility] in [facility] under hospice care.
[2017-03-27 12:22] LABS: Glucose,Whole Blood 112 mg/dL (75-99)
== END 2017-03-27 14:12 | disposition hospice, inpatient (51) | DRG 690 ==
LOC: EC 17:54 → 4MS4W 20:39
PROVIDERS: ADMIT Internal Medicine; ATTEND Internal Medicine
DX: N39.0 Urinary tract infection, site not specified (principal); N18.4 Chronic kidney disease, stage 4 (severe); I13.0 Hypertensive heart and chronic kidney disease with heart failure and stage 1 through stage 4 chronic kidney disease, or unspecified chronic kidney disease; F03.90 Unspecified dementia, unspecified severity, without behavioral disturbance, psychotic disturbance, mood disturbance, and anxiety; E11.22 Type 2 diabetes mellitus with diabetic chronic kidney disease; I50.9 Heart failure, unspecified; I69.351 Hemiplegia and hemiparesis following cerebral infarction affecting right dominant side; D63.8 Anemia in other chronic diseases classified elsewhere; K70.30 Alcoholic cirrhosis of liver without ascites; Z51.5 Encounter for palliative care; I25.10 Atherosclerotic heart disease of native coronary artery without angina pectoris; D50.9 Iron deficiency anemia, unspecified; B96.1 Klebsiella pneumoniae [K. pneumoniae] as the cause of diseases classified elsewhere; R53.1 Weakness; R05 Cough; I25.2 Old myocardial infarction; E86.0 Dehydration; I69.320 Aphasia following cerebral infarction; G93.9 Disorder of brain, unspecified; M79.89 Other specified soft tissue disorders; F32.9 Major depressive disorder, single episode, unspecified; F41.9 Anxiety disorder, unspecified; Z79.899 Other long term (current) drug therapy; Z82.49 Family history of ischemic heart disease and other diseases of the circulatory system; Z83.3 Family history of diabetes mellitus; Z86.14 Personal history of Methicillin resistant Staphylococcus aureus infection; Z87.891 Personal history of nicotine dependence; Z95.1 Presence of aortocoronary bypass graft; Z86.74 Personal history of sudden cardiac arrest; Z86.79 Personal history of other diseases of the circulatory system; Z88.8 Allergy status to other drugs, medicaments and biological substances; Z87.19 Personal history of other diseases of the digestive system; Z79.01 Long term (current) use of anticoagulants; Z79.84 Long term (current) use of oral hypoglycemic drugs; Z95.5 Presence of coronary angioplasty implant and graft; Z71.3 Dietary counseling and surveillance
CPT/HCPCS: 36415; 80048; 80053; 81001; 82140; 82550; 82553; 83605; 83735; 84100; 84484; 85025; 85027; 85610; 85730; 87077; 87086; 87186; 94760